=== PATIENT | female | born 1940 | race Hispanic/Latino ===

== ENCOUNTER 2020-08-18 02:02 | Emergency (ER) | payer OTHER ==
--- OUTSIDE RECORDS SUMMARY | 2020-08-18 02:06 | XMS REPORT | Continuity of Care Document ---
:1940 Author Organization [facility] t Address [address] [place] [address] Care Team Providers Name Role Phone ALLYSSA Attending Clinician Unavailable Estela Beasley Attending Clinician Marlena LUX T Attending Clinician ANTWAN Attending Clinician Unavailable Gabriel HERNANDEZ S Attending Clinician BOSSMAN Admitting Clinician Unavailable Problems This patient has no known problems. Allergies, Adverse Reactions, Alerts Allergy Allergy Status Severity Reaction(s) Onset Inactive Treating Comm ents Source Name Type Date Date Clinician codeine Adverse Active headaches [facility] ent Clinics Medications Ordered Filled Start Stop Current Ordering Indication Dosage Frequency Signature Comments Components Source Medication Medication Date Date Medication? Clinician (SIG) Name Name Losartan Losartan Yes Na Cordova [address] [facility] Potassium Potassium 9-14 at night [facility] Losartan Losartan 2019-0 Yes Na Cordova [address] [facility] Potassium Potassium 9-02 [facility] Metoprolol Metoprolol Yes Na Cordova [address] [facility] Succinate Succinate [facility]ics Metoprolol Metoprolol Yes Na Cordova take [address] [facility] Succinate Succinate tablet Lonnie es - ER ER once daily [facility] ent Clinics Immunizations Ordered Filled Immunization Date Status Comments Sour e Immunization Name Name Genevieve Vallejo 2019-05-[address] [facility] Procedures This patient has no known procedures. Encounters Start End Encounter Admission Attending Care Care Encounter Source Date/Time Date/Time Type Type Clinicians Facility Department ID 2020-07-14 2020-07-14 Out[facility] [id number] l [facility] ent Clinics 2020-06-30 2020-06-30 Outpatient [facility] [id number] [place] 00:00:00 00:00:[address] 2020-06-09 2020-06-09 Outpatient [facility] [id number] 00:00:00 00:00:[address] 2020-03-20 2020-03-20 Outpatient [facility] [id number] 00:00:00 00:00:[address] 2020-02-26 2020-02-26 Outpatient GADHIA, [facility] [id number] 00:00:00 00:00:00 DWIGHT [address] 2020-02-07 2020-02-07 Outpatient [facility] [id number] [place] 00:00:00 00:00:[address] 2020-02-04 2020-02-04 [facility] [id number] 09:18:00 09:18:[address] [facility] ent [facility] 2020-02-01 2020-02-01 Emergency Elizabeth, K [facility] [id number] 19:53:00 22:28:00 Estela Denney [id number] [place] [id number] [place] [id number] 2020-01-31 2020-01-31 [facility] [id number] 09:17:00 09:17:[address] [facility] ent [facility] 2020-01-30 2020-01-30 [facility] [id number] 09:30:00 09:30:00 t [facility] - agreement24 avtal24 [facility] Medicine Outpati ent Clinics 2020-01-25 2020-01-25 Emergency Sam Mendiola [facility] [id number] 11:03:00 13:39:00 James Denney [id number] [place] [id number] [place] [address] [id number] 2020-01-25 2020-01-25 [facility] [id number] [facility] 10:24:00 10:24:00 t [facility] Journal[employer] Online [facility] Medicine Outpati ent Clinics 2020-01-24 2020-01-24 [facility] [id number] [address] 15:31:00 15:31:00 t Istpika [facility] Medicine Outpati ent Clinics 2020-01-23 2020-01-24 [id number] [place] 00:00:00 00:00:00 TUYET [address] 2020-01-23 2020-01-23 [facility] [id number] [address] 10:40:00 10:40:00 t Istpika [facility] Medicine Outpati ent Clinics 2020-01-21 2020-01-21 [facility] [id number] 21:39:00 23:54:00 Toño Denney [id number] [place] [id number] [place] [id number] 2020-01-04 2020-01-04 [facility] [id number] 08:20:00 08:20:00 t [facility] [employer] Online [facility] Medicine Outpati ent Clinics 2019-12-04 2019-12-04 [facility] [id number] 13[facility]20:00 13:20:00 t [facility] [employer] Online [facility] Medicine Outpati ent Clinics 2019-11-02 2019-11-02 [facility] [id number] [facility] 16:00:00 16:00:[address] [facility] - Drive [facility] Medicine l Medicine Outpati ent Clinics 2019-11-02 2019-11-02 [facility] [id number] [facility] 15:30:00 15:30:[address] Luke s - Drive [facility] Medicine l Medicine Outpati ent Clinics 2019-10-02 2019-10-02 [facility] [id number] 10:40:00 10:40:[address] Luke s - Drive [facility] Medicine l Medicine Outpati ent Clinics 2019-06-15 2019-06-15 [facility] [id number] 12:48:00 12:48:00 [place] agreement24 avtal24 Luke s - Drive [facility] Medicine l Medicine Outpati ent Clinics 2019-05-11 2019-05-11 [facility] [id number] 08:40:00 08:40:00 [place] agreement24 avtal24 Luke s - Drive [facility] Medicine l Medicine Outpati ent Clinics 2019-04-27 2019-04-27 [facility] [id number] 16:00:00 16:00:00 [place] agreement24 avtal24 Luke s - Drive [facility] Medicine l Medicine Outpati ent Clinics 2019-03-16 2019-03-16 [facility] [id number] 08:20:00 08:20:00 [place] agreement24 avtal24 Luke s - Drive [facility] Medicine l Medicine Outpati ent Clinics 2019-01-26 2019-01-26 [facility] [id number] 09:40:00 09:40:00 [place] agreement24 avtal24 Luke s - Drive [facility] Medicine l Medicine Outpati ent Clinics 2019-01-17 2019-01-17 [facility] [id number] [facility] 09:26:00 09:26:[address] Luke s - Drive [facility] Medicine l Medicine Outpati ent Clinics 2018-12-08 2018-12-08 [facility] [id number] [facility] 08:30:00 08:30:[address] Luke s - Drive [facility] Medicine l Medicine Outpati ent Clinics 2018-07-26 2018-07-26 [facility] [id number] [facility] 09:00:00 09:00:[address] Luke s - Drive [facility] Medicine Outpati ent Clinics 2018-06-13 2018-06-13 [facility] [id number] 08:45:00 08:45:[address] Luke s - Drive [facility] Medicine Outpati ent Clinics 2018-01-26 2018-01-26 [facility] [id number] 09[facility]45:00 09:45:[address] Luke s - Drive [facility] Medicine Outpati ent Clinics 2018-01-08 2018-01-08 [facility] [id number] 03:47:00 03:47:[address] [employer] s - Drive [facility] Medicine Outpati ent Clinics 2017-12-29 2017-12-29 [facility] [id number] 13:45:00 13:45:00 [place] agreement24 avtal24 [employer] s - Drive [facility] Medicine Outpati ent Clinics 2017-12-28 2017-12-28 [facility] [id number] 08:47:00 08:47:[address] [employer] s - Drive [facility] Medicine Outpati ent Clinics 2017-10-26 2017-10-26 [facility] [id number] 09:45:00 09:45:00 [place] agreement24 [email or web address] [employer] s - Drive [facility] Medicine Outpati ent Clinics Results This patient has no known results.
[2020-08-18] MEDS ORDERED: ONDANSETRON 4 MG/2 ML VIAL ONE (03:19)
[2020-08-18] MEDS ORDERED: MORPHINE 2 MG/ML SYR ONE (03:19)
[2020-08-18 03:27] LABS: Protime INR 1.04
[2020-08-18 03:28] LABS: Absolute Lymphocytes (CBC) 1.7 K/uL (0.7-4.9); Basophils % 0.4 % (0-1.3); Hematocrit 37.9 % (36.0-45.0); Lymphocytes % 15.1 % (15.3-44.8); MPV 8.2 fL (7.6-11.3); RBC Red Blood Cell Count 4.28 M/uL (3.86-4.86)
[2020-08-18 03:49] LABS: ALT/SGPT 26 U/L (12-78); AST/SGOT 16 U/L (15-37); Albumin 3.7 g/dL (3.4-5.0); Alkaline Phosphatase 94 U/L (45-117); BUN Blood Urea Nitrogen 15 mg/dL (7-18); Bicarbonate 28 mmol/L (21-32); Bilirubin Direct 0.2 mg/dL (0-0.2); Bilirubin Total 0.8 mg/dL (0.2-1.0); Glucose Level 130 mg/dL (74-106); Magnesium 2.1 mg/dL (1.8-2.4); NT PRO-BNP 313 pg/mL (<450); Potassium 3.4 mmol/L (3.5-5.1); Protein, Total 7.5 g/dL (6.4-8.2); Sodium Level 140 mmol/L (136-145); Troponin (Emerg Dept Use Only) < 0.02 ng/mL (0.0-0.045)
[2020-08-18 04:27] LABS: Urine Blood 2+ (Negative); Urine Glucose NEGATIVE (Negative); Urine Protein NEGATIVE (NEG); Urine Specific Gravity 1.025 (1.005-1.030)
[2020-08-18] MEDS ORDERED: CEFTRIAXONE 1000 MG/VIAL ONE (06:18)
[2020-08-18] MEDS ORDERED: NA CHLORIDE 0.9% 250 ML ONE (06:19)
[2020-08-18] MEDS ORDERED: AZITHROMYCIN 500 MG INJ IVPB ONE (06:19)
[2020-08-18] MEDS ORDERED: NA CHLORIDE 0.9% 50 ML ONE (06:19)
--- NOTE | 2020-08-18 08:24 | RAD REPORT ---
EXAM DESCRIPTION: RAD - Chest Single View - 08/18/2020 3:19 am CLINICAL HISTORY: Chest pain;Rib Pain - Left COMPARISON: January 2014 TECHNIQUE: AP portable chest image was obtained 08/18/2020 3:19 am . FINDINGS: Lung volumes are low. Right lung field clear of mass or consolidation. Lateral left base p arenchymal opacification present with costophrenic angle blunting and partial obscuration of the left heart border. Heart size within normal limits. Pulmonary vasculature within normal limits. Trachea i s midline. No measurable pleural effusion and no pneumothorax. No acute bony abnormality seen. No acu te aortic findings suspected. IMPRESSION: Infiltrate and/or atelectasis left lung base. Minimal pleural effusion could be present as well.
--- NOTE | 2020-08-18 08:29 | EDPHYS ---
Physician Documentation [facility] Name: Deisy Yusuf Age: 79 yrs Sex: Female : 1940 Arrival Date: 08/18/2020 Time: 02:07 Bed 3 Private MD: Len Lopez E ED Physician Zeyad Booth HPI: 08/18 03:57 This 79 yrs old Female presents to ER via Wheelchair with complaints of Chest mh7 Pain, Breathing Difficulty, Back Pain. 03:57 The patient or guardian reports chest pain that is located primarily in the anterior mh7 chest wall, left. Onset: last night. The pain does not radiate. Associated signs and symptoms: Pertinent positives: shortness of breath, Pertinent negatives: abdominal pain, cough, diaphoresis, dizziness, headache, lower extremity pain, lower extremity swelling, lightheadedness, nausea, near syncope, palpitations, recent travel, syncope, vomiting. The chest pain is described as a pressure. Duration: The patient or guardian reports multiple episodes, that are intermittent, that wax and wane. Modifying factors: The symptoms are alleviated by nothing. the symptoms are aggravated by nothing. Severity of pain: At its worst the pain was moderate last night, in the emergency department the pain is unchanged. Historical: - Allergies: : Codeine; bb - Home Meds: : fluticasone nasal nasal [Active]; magnesium / calcium [Active]; D3 [Active]; losartan bb 100 mg oral tab 1 tab once daily [Active]; rosuvastatin 10 mg oral tab 1 tab once daily [Active]; gabapentin 300 mg oral cap 1 cap nightly [Active]; amlodipine 5 mg tab 1 tab once daily [Active]; clopidogrel 75 mg oral tab 1 tab once daily [Active]; aspirin 325 mg Oral tab 1 tab once daily [Active]; hydrochlorothiazide 25 mg Oral tab 1 tab once daily [Active]; metoprolol succinate ER 50 mg daily [Active]; - PMHx: 02: CVA; Hypertension; Hyperlipidemia; bb - PSHx: : ; Knee arthroscopy; hand surgery; bb - Immunization history:: Adult Immunizations up to date. - Social history:: Smoking status: Patient denies any tobacco usage or history of. Patient/guardian denies using alcohol, street drugs. ROS: 03:57 Constitutional: Negative for fever, chills, and weight loss, Eyes: Negative for injury, mh7 pain, redness, and discharge, ENT: Negative for injury, pain, and discharge, Neck: Negative for injury, pain, and swelling, Abdomen/GI: Negative for abdominal pain, nausea, vomiting, diarrhea, and constipation, : Negative for injury, bleeding, discharge, and swelling, MS/Extremity: Negative for injury and deformity, Skin: Negative for injury, rash, and discoloration, Neuro: Negative for headache, weakness, numbness, tingling, and seizure, Psych: Negative for depression, anxiety, suicide ideation, homicidal ideation, and hallucinations, Allergy/Immunology: Negative for hives, rash, and allergies, Endocrine: Negative for neck swelling, polydipsia, polyuria, polyphagia, and marked weight changes, Hematologic/Lymphatic: Negative for swollen nodes, abnormal bleeding, and unusual bruising. Exam: 03:57 Constitutional: This is a well developed, well nourished patient who is awake, alert, mh7 and in no acute distress. Head/Face: Normocephalic, atraumatic. Eyes: Pupils equal round and reactive to light, extra-ocular motions intact. Lids and lashes normal. Conjunctiva and sclera are non-icteric and not injected. Cornea within normal limits. Periorbital areas with no swelling, redness, or edema. Neck: Trachea midline, no thyromegaly or masses palpated, and no cervical lymphadenopathy. Supple, full range of motion without nuchal rigidity, or vertebral point tenderness. No Meningismus. Chest/axilla: Normal chest wall appearance and motion. Nontender with no deformity. No lesions are appreciated. Cardiovascular: Regular rate and rhythm with a normal S1 and S2. No gallops, murmurs, or rubs. Normal PMI, no JVD. No pulse deficits. Respiratory: Lungs have equal breath sounds bilaterally, clear to auscultation and percussion. No rales, rhonchi or wheezes noted. No increased work of breathing, no retractions or nasal flaring. Abdomen/GI: Soft, non-tender, with normal bowel sounds. No distension or tympany. No guarding or rebound. No evidence of tenderness throughout. Back: No spinal tenderness. No costovertebral tenderness. Full range of motion. Skin: Warm, dry with normal turgor. Normal color with no rashes, no lesions, and no evidence of cellulitis. MS/ Extremity: Pulses equal, no cyanosis. Neurovascular intact. Full, normal range of motion. Neuro: Awake and alert, GCS 15, oriented to person, place, time, and situation. Cranial nerves II-XII grossly intact. Motor strength 5/5 in all extremities. Sensory grossly intact. Cerebellar exam normal. Normal gait. Psych: Awake, alert, with orientation to person, place and time. Behavior, mood, and affect are within normal limits. Vital Signs: 02:19 BP 146 / 52; Pulse 103; Resp 20 S; Temp 98.6(O); Pulse Ox 97% on R/A; Weight 90.72 kg bb (R); Height 5 ft. 6 in. (167.64 cm) (R); Pain 10/10; 03:00 BP 139 / 47; Pulse 91; Resp 18; Pulse Ox 98% ; sf 04:04 BP 97 / 64; Pulse 79; Resp 16; Pulse Ox 98% ; sf 04:22 BP 117 / 42; Pulse 73; Resp 16; Pulse Ox 98% ; sf 04:30 BP 105 / 42; Pulse 70; Resp 16; Pulse Ox 97% ; sf 05:00 BP 94 / 41; Pulse 58; Resp 18; Pulse Ox 97% ; sf 07:30 BP 113 / 51; Pulse 62; Resp 14 S; Pulse Ox 97% on R/A; aa5 02:19 Body Mass Index 32.28 (90.72 kg, 167.64 cm) MDM: 07:04 Patient medically screened. ma2 08:28 Differential diagnosis: pericarditis, pleurisy, pneumonia. Data reviewed: vital signs, ma2 nurses notes. Counseling: I had a detailed discussion with the patient and/or guardian regarding: the historical points, exam findings, and any diagnostic results supporting the discharge/admit diagnosis, the presence of at least one elevated blood pressure reading (>120/80) during this emergency department visit, the need for outpatient follow up. ED course: patient has left lateral chest pain worse with breathing and pneumonia left lingual, vs wnl, all symptoms resolved. 08/18 02:29 Order name: Basic Metabolic Panel [facility] 08/18 02:29 Order name: CBC with Diff [facility] 08/18 02:29 Order name: LFT's; Complete Time: 03:52 [facility] 08/18 02:29 Order name: Magnesium; Complete Time: 03:52 [facility] 08/18 02:29 Order name: NT PRO-BNP; Complete Time: 03:52 [facility] 08/18 02:29 Order name: PT-INR; Complete Time: 05:12 7 08/18 02:29 Order name: Troponin (emerg Dept Use Only); Complete Time: 03:52 [facility] 08/18 02:30 Order name: Basic Metabolic Panel; Complete Time: 03:52 EDMS 08/18 02:30 Order name: CBC with Automated Diff; Complete Time: 03:53 EDMS 08/18 04:14 Order name: Urine Dipstick--Ancillary (enter results); Complete Time: 05:12 [facility] 08/18 05:18 Order name: Blood Culture Adult (2) [facility] 08/18 05:22 Order name: COVID-19 : Document "Date of Symptom Onset" if Symptomatic. lp1 08/18 07:13 Order name: SARS-COV-2 RT PCR; Complete Time: 07:35 EDMS 08/18 02:29 Order name: XRAY Chest (1 view) [facility] 08/18 02:29 Order name: EKG; Complete Time: 02:30 [facility] 08/18 02:29 Order name: Cardiac monitoring; Complete Time: 03:04 [facility] 08/18 02:29 Order name: EKG - Nurse/Tech; Complete Time: 05:17 [facility] 08/18 02:29 Order name: IV Saline Lock; Complete Time: 03:04 [facility] 08/18 02:29 Order name: Labs collected and sent; Complete Time: 03:04 [facility] 08/18 02:29 Order name: O2 Per Protocol; Complete Time: 03:04 [facility] 08/18 02:29 Order name: O2 Sat Monitoring; Complete Time: 03:04 [facility] 08/18 02:30 Order name: Urine Dipstick-Ancillary (obtain specimen); Complete Time: 04:26 [facility] 08/18 03:53 Order name: CT Chest For PE Angio [facility] Administered Medications: 03:08 Drug: morphine 2 mg Route: IVP; Site: right antecubital; sf 04:27 Follow up: Response: No adverse reaction; Pain is decreased sf 03:08 Drug: Zofran (Ondansetron) 4 mg Route: IVP; Site: right antecubital; sf 04:27 Follow up: Response: No adverse reaction sf 06:09 Drug: Rocephin - (cefTRIAXone) 1 grams Route: IVPB; Infused Over: 30 mins; Site: left sf antecubital; 06:36 Follow up: Response: No adverse reaction; IV Status: Completed infusion; IV Intake: 50mlsf 06:37 Drug: Zithromax (azithromycin) 500 mg Route: IVPB; Infused Over: 1 hrs; Site: left sf antecubital; Disposition: 08/18/20 08:29 Discharged to Home. Impression: Pneumonia due to other specified infectious organisms. - Condition is Stable. - Discharge Instructions: Community-Acquired Pneumonia, Adult. - Prescriptions for Diclofenac Sodium 75 mg Oral Tablet Sustained Release - take 1 tablet by ORAL route 2 times per day; 30 tablet. Zithromax Z- Javi 250 mg Oral Tablet - take 1 tablet by ORAL route as directed for 5 days Day 1 - take two (2) tablets one time. Day 2, 3, 4 , 5 take one (1) tablet once daily.; 6 tablet. - Medication Reconciliation Form, Thank You Letter, Antibiotic Education, Prescription Opioid Use form. - Follow up: Private Physician; When: Tomorrow; Reason: Continuance of care. Signatures: Dispatcher [employer] [facility] Radha Jung RN RN Jesse Boucher RN RN [id number] Zeyad Booth MD MD ma2 Booker Dai MD MD 7 Andreas Vera RN RN sf Corrections: (The following items were deleted from the chart) 06:34 05:23 CORONAVIRUS ordered. [facility] EDOR 09:22 08:29 08/18/2020 08:29 Discharged to Home. Impression: Pneumonia due to other specified jl7 infectious organisms. Condition is Stable. Forms are Medication Reconciliation Form, Thank You Letter, Antibiotic Education, Prescription Opioid Use. Follow up: Private Physician; When: Tomorrow; Reason: Continuance of care. dalila
--- NOTE | 2020-08-18 08:29 | ER ---
Nurse's Notes [facility] [place] Name: Deisy Yusuf Age: 79 yrs Sex: Female : 1940 Arrival Date: 08/18/2020 Time: 02:07 Bed 3 Private MD: Len Lopez E Diagnosis: Pneumonia due to other specified infectious organisms Presentation: 08/18 02:19 Chief complaint: Patient states: she started having left flank pain at approx 1800 last bb night denies nausea, vomiting, diarrhea, or dysuria but is having difficulty breathing from the pain. Coronavirus screen: At this time, the client does not indicate any symptoms associated with coronavirus-19. Ebola Screen: No symptoms or risks identified at this time. Initial Sepsis Screen: Does the patient meet any 2 criteria? No. Patient's initial sepsis screen is negative. Does the patient have a suspected source of infection? No. Patient's initial sepsis screen is negative. Risk Assessment: Do you want to hurt yourself or someone else? Patient reports no desire to harm self or others. Onset of symptoms was August 17, 2020. 02:19 Method Of Arrival: Wheelchair bb 02:19 Acuity: KIRSTIN 3 bb Historical: - Allergies: 02: Codeine; bb - Home Meds: 02: fluticasone nasal nasal [Active]; magnesium / calcium [Active]; D3 [Active]; losartan bb 100 mg oral tab 1 tab once daily [Active]; rosuvastatin 10 mg oral tab 1 tab once daily [Active]; gabapentin 300 mg oral cap 1 cap nightly [Active]; amlodipine 5 mg tab 1 tab once daily [Active]; clopidogrel 75 mg oral tab 1 tab once daily [Active]; aspirin 325 mg Oral tab 1 tab once daily [Active]; hydrochlorothiazide 25 mg Oral tab 1 tab once daily [Active]; metoprolol succinate ER 50 mg daily [Active]; - PMHx: 02: CVA; Hypertension; Hyperlipidemia; bb - PSHx: 02: ; Knee arthroscopy; hand surgery; bb - Immunization history:: Adult Immunizations up to date. - Social history:: Smoking status: Patient denies any tobacco usage or history of. Patient/guardian denies using alcohol, street drugs. Screenin: Abuse screen: Denies threats or abuse. Denies injuries from another. Nutritional sf screening: No deficits noted. Tuberculosis screening: No symptoms or risk factors identified. Never had TB. Possible symptoms: None Risk factors: None. Fall Risk None identified. No fall in past 12 months (0 pts). Secondary diagnosis (15 points) CVA, IV access (20 points). Ambulatory Aid- Crutches/Cane/Walker (15 pts). Gait- Normal/Bed Rest/Wheelchair (0 pts) Mental Status- Oriented to own ability (0 pts). Total Rodarte Fall Scale indicates Low Risk Score (25-44 pts). Fall prevention measures have been instituted. Side Rails Up X 2 Placed close to Nursing Station. Assessment: 02:22 General: Appears uncomfortable, obese, well groomed, well developed, Behavior is calm, sf cooperative. Pain: Complains of pain in anterior aspect of left lateral abdomen Pain does not radiate. Pain currently is 8 out of 10 on a pain scale. Quality of pain is described as sharp, Pain began gradually, 1 day ago. Neuro: No deficits noted. Level of Consciousness is awake, alert, Oriented to person, place, time, situation. Cardiovascular: Denies chest pain, lightheadedness, shortness of breath, Patient's skin is warm and dry. Respiratory: Reports pain with cough pain with respiration Airway is patent Respiratory effort is even, unlabored, Respiratory pattern is regular, symmetrical, Denies shortness of breath at rest, on exertion. GI: Abdomen is non-distended, Abd is soft and non tender X 4 quads. Patient currently denies abdominal pain, nausea, vomiting. : No signs and/or symptoms were reported regarding the genitourinary system. Denies burning with urination, pain in lower back with urination flank(s). 04:00 Reassessment: Patient appears in no apparent distress at this time. Patient and/or sf family updated on plan of care and expected duration. Pain level reassessed. Patient is alert, oriented x 3, equal unlabored respirations, skin warm/dry/pink. Taken to restroom via w/c for urine sample Patient states feeling better. Patient states symptoms have improved. 06:09 Reassessment: Patient appears in no apparent distress at this time. No changes from sf previously documented assessment. Patient and/or family updated on plan of care and expected duration. Pain level reassessed. Patient is alert, oriented x 3, equal unlabored respirations, skin warm/dry/pink. 07:45 Reassessment: Patient is alert, oriented x 3, equal unlabored respirations, skin aa5 warm/dry/pink. Awaiting disposition. Pt c/o pain to lateral aspect of left lower rib cage.. Vital Signs: 02:19 BP 146 / 52; Pulse 103; Resp 20 S; Temp 98.6(O); Pulse Ox 97% on R/A; Weight 90.72 kg bb (R); Height 5 ft. 6 in. (167.64 cm) (R); Pain 10/10; 03:00 BP 139 / 47; Pulse 91; Resp 18; Pulse Ox 98% ; sf 04:04 BP 97 / 64; Pulse 79; Resp 16; Pulse Ox 98% ; sf 04:22 BP 117 / 42; Pulse 73; Resp 16; Pulse Ox 98% ; sf 04:30 BP 105 / 42; Pulse 70; Resp 16; Pulse Ox 97% ; sf 05:00 BP 94 / 41; Pulse 58; Resp 18; Pulse Ox 97% ; sf 07:30 BP 113 / 51; Pulse 62; Resp 14 S; Pulse Ox 97% on R/A; aa5 02:19 Body Mass Index 32.28 (90.72 kg, 167.64 cm) ED Course: 02:07 Patient arrived in ED. es 02:07 Len Lopez MD is Private Physician. es 02:14 Booker Dai MD is Attending Physician. [facility] 02:21 Andreas Vera, ANTOINE is Primary Nurse. sf 02:21 Triage completed. bb 02:22 Patient has correct armband on for positive identification. Bed in low position. Call light in reach. Side rails up X2. Pulse ox on. NIBP on. Door closed. Noise minimized. Visitors limited. Lights dimmed. Warm blanket given. Verbal reassurance given. 02:22 Patient maintains SpO2 saturation greater than 95% on room air. sf 02:26 Arm band placed on Patient placed in an exam room, on a stretcher, on pulse oximetry. bb 02:50 Initial lab(s) drawn, by me, sent to lab. Inserted saline lock: 20 gauge in right sf antecubital area, using aseptic technique. Blood collected. 03:04 XRAY Chest (1 view) Sent. sf 03:09 CBC with Diff Sent. sf 03:09 Basic Metabolic Panel Sent. sf 03:18 XRAY Chest (1 view) In Process Unspecified. EDMS 03:53 EKG done, by ED staff, reviewed by Booker Dai MD. sf 04:00 Urine collected: clean catch specimen, clear. sf 04:26 CT Chest For PE Angio Sent. sf 04:49 CT Chest For PE Angio In Process Unspecified. EDMS 05:35 First set of blood cultures drawn by me. sf 05:35 Inserted saline lock: 20 gauge in left antecubital area, using aseptic technique. Blood sf collected. 05:40 Second set of blood cultures drawn by me. sf 05:54 Blood Culture Adult (2) Sent. sf 05:55 COVID-19 : Document "Date of Symptom Onset" if Symptomatic. Sent. sf 07:04 Attending Physician role handed off by Booker Dai MD ma2 07:04 Zeyad Booth MD is Attending Physician. ma2 08:08 Primary Nurse role handed off by Andreas Vera, ANTOINE 09:21 Jesse Carlson, ANTOINE is Primary Nurse. jl7 09:21 No provider procedures requiring assistance completed. IV discontinued, intact, jl7 bleeding controlled, No redness/swelling at site. Pressure dressing applied. Administered Medications: 03:08 Drug: morphine 2 mg Route: IVP; Site: right antecubital; sf 04:27 Follow up: Response: No adverse reaction; Pain is decreased sf 03:08 Drug: Zofran (Ondansetron) 4 mg Route: IVP; Site: right antecubital; sf 04:27 Follow up: Response: No adverse reaction sf 06:09 Drug: Rocephin - (cefTRIAXone) 1 grams Route: IVPB; Infused Over: 30 mins; Site: left sf antecubital; 06:36 Follow up: Response: No adverse reaction; IV Status: Completed infusion; IV Intake: 50mlsf 06:37 Drug: Zithromax (azithromycin) 500 mg Route: IVPB; Infused Over: 1 hrs; Site: left sf antecubital; Intake: 06:36 IV: 50ml; Total: 50ml. sf Outcome: 08:29 Discharge ordered by . ma2 09:21 Discharged to home ambulatory. jl7 09:21 Condition: stable 09:21 Discharge instructions given to patient, Instructed on discharge instructions, follow up and referral plans. medication usage, Demonstrated understanding of instructions, follow-up care, medications, Prescriptions given X 2. 09:22 Patient left the ED. jl7 Signatures: Dispatcher [employer] EDMS Hannah Wahl Edna es Ballard, Brenda RN RN bb Smitha Garvey RN RN aa5 Jesse Carlson RN RN jl7 Zeyad Booth MD MD ma2 Booker Dai MD MD 7 Andreas eVra RN RN sf Corrections: (The following items were deleted from the chart) 06:34 05:54 CORONAVIRUS drawn and sent. EDMS
[2020-08-18 09:27] VITALS: TEMP 98.6
[2020-08-18 09:35] VITALS: O2SAT 97
[2020-08-18 09:38] VITALS: BP 113/51
--- NOTE | 2020-08-18 11:19 | RAD REPORT ---
EXAM DESCRIPTION: CT - Chest For Pe Angio - 08/18/2020 7:11 am CLINICAL HISTORY: The patient is 79 years old and is Female; Chest pain;SOB TECHNIQUE: Axial computed tomographic angiography images of the chest with intravenous contrast. S agittal and coronal reformatted images were created and reviewed. This CT exam was performed using one or more of the following dose reduction techniques: automated exposure control, adjustment of t he mA and/or kV according to patient size, and/or use of iterative reconstruction technique. MIP re constructed images were created and reviewed. COMPARISON: No relevant prior studies available. FINDINGS: Pulmonary arteries: Unremarkable. No pulmonary embolism. Aorta: No acute findings. No thoracic aortic aneurysm. Lungs: Left basilar atelectasis or consolidation. Pleural space: Unremarkable. No significant effusion. No pneumothorax. Heart: Heart appears enlarged. No significant pericardial effusion. No evidence of RV dysfunct ion. Mediastinum: Small hiatal hernia. Bones/joints: No acute fracture. No dislocation. Soft tissues: Unremarkable. Lymph nodes: Unremarkable. No enlarged lymph nodes. IMPRESSION: 1. No evidence of pulmonary embolism. 2. Left basilar atelectasis or consolidation. 3. Small hiatal hernia. 4. Heart appears enlarged. Electronically signed by: Umer Trujillo MD 08/18/2020 5:06 AM CDT Due to temporary technical issues with the PACS/Fluency reporting system, reports are being signed by the in house radiologist without review as a courtesy to ensure prompt reporting. The interpreting r adiologist is fully responsible for the content of the report.
== END 2020-08-18 09:22 | disposition home or self-care (01) ==
LOC: ER 02:02
DX: J16.8 Pneumonia due to other specified infectious organisms (principal); Z20.822 Contact with and (suspected) exposure to COVID-19; I10 Essential (primary) hypertension; E78.5 Hyperlipidemia, unspecified; Z88.5 Allergy status to narcotic agent
CPT/HCPCS: 93005; 87040 ×2; 85025; 80048; 36415; 83735; 85610; 80076; 81003; 84484; 83880; 71275; 71045; U0003; Q9967; J0456; J2270; J7050; J2405; 99285

== ENCOUNTER 2021-04-19 14:29 | Emergency (ER) | payer OTHER ==
--- OUTSIDE RECORDS SUMMARY | 2021-04-19 14:36 | XMS REPORT | Continuity of Care Document ---
:1940 Author Organization [facility] t Address [address] [place] [address] Care Team Providers Name Role Phone Miguelina Cordova Primary Care Physician Janusz VILLELA Attending Clinician Unavailable Manohar HERNANDEZ, A Attending Clinician Only, Test Attending Clinician Unavailable Pob, Lab Main Attending Clinician Unavailable Doctor Unassigned, Name Attending Clinician Unavailable ALLYSSA Attending Clinician Unavailable Lilia Beasley Attending Clinician LILIA LEE Attending Clinician Unavailable aJmes Knox Attending Clinician ANTWAN Attending Clinician Unavailable MD Lina MONCADA Attending Clinician Unavailable Gabriel HERNANDEZ S Attending Clinician Rox SALDIVAR Attending Clinician Unavailable Janusz VILLELA Admitting Clinician Unavailable Manohar HERNANDEZ, A Admitting Clinician BOSSMAN Admitting Clinician Unavailable MD BOSSMAN Admitting Clinician Unavailable Payers Payer Name Policy Type Policy Number Effective Date Expiration Date S tracy [employer] MEDICARE [id number] 2019 00:00:00 Problems Condition Condition Condition Status Onset Resolution Last Treating Co mments Source Name Details Category Date Date Treatment Clinician Date No known No known Disease Unive rs active active ity of problems problems [facility] Allergies, Adverse Reactions, Alerts Allergy Allergy Status Severity Reaction(s) Onset Inactive Treating Comm ents Source Name Type Date Date Clinician ALYSSA DRUG Active Other-Cmnt Unive rs INGREDI 01-20 ity of 00:00: [place] 00 Medical Branch Codeine Propensi Active Other - See headache Univers ty to comments 01-20 ity of adverse 00:00: [place] reaction 00 Medical s Branch codeine Adverse Active headaches [facility] Social History Social Habit Start Date Stop Date Quantity Comments Source Exposure to Not sure [facility] SARS-CoV-2 (event) Medica l Branch Tobacco use and 2020-10-07 2020-10-07 Never used [facility] exposure 00:00:00 00:00:00 Medical Branch Sex Ass[birth year] [facility] 00:00:00 00:00:00 Medical Branch Smoking Status Start Date Stop Date Source Never smoker [facility] Unknown if ever smoked [facility] Medications Ordered Filled Start Stop Current Ordering Indication Dosage Frequency Signature Comments Components Source Medication Medication Date Date Medication? Clinician (SIG) Name Name atorvastati Yes 80mg Take 80 mg Univers n 80 mg 5-19 by mouth ity of tablet 17:45: at [place] 47 bedtime. Medical Branch losartan Yes 100mg Take 100 Univ ers 100 mg 5-19 mg by ity of tablet 17:45: mouth [place] 47 daily. Medical Branch clopidogreL Yes 75mg Take 75 mg Univers 75 mg 5-19 by mouth ity of tablet 17:45: daily. [place] 47 Medical Branch metoprolol Yes 50mg Take 50 mg U nivers succinate 5-19 by mouth ity of XL 50 mg 24 17:45: [place]. [place] 47 [facility] aspirin 325 Yes 325mg Take 325 U nivers mg tablet 5-19 mg by ity of 17:45: mouth [place] 47 daily. Medical Branch mv-mn/iron/ Yes 1{capsu Take 1 U nivers folic 5-19 le} capsule by ity of acid/herb 17:45: mouth [place] 190 47 daily. Medical (VITAMIN D3 Branch COMPLETE ORAL) multivit-mi Yes 1{tbl} Take 1 Un jana n/ferrous 5-19 tablet by ity o f fumarate 17:45: mouth [place] (MULTI 47 daily. Medical VITAMIN Branch ORAL) sennosides Yes 1{tbl} Take 1 Uni vers (SENNA LAX 5-19 tablet by ity of ORAL) 17:45: mouth [place] 47 daily. Medical Branch gabapentin Yes 300mg Take 300 Un jana ER 300 mg 5-19 mg by ity of tablet, 17:45: mouth [place] extended 47 daily. Medical release 24 Branch hr rosuvastati Yes 10mg Take 10 mg Univers n 10 mg 5-19 by mouth ity of tablet 17:45: at [place] [address] bedtime. Medical Branch amLODIPine Yes 5mg Take 5 mg Un jana 5 mg tablet 5-19 by mouth ity of 17:45: daily. [place] [address] Medical Branch hydroCHLORO Yes 25mg Take 25 mg Univers thiazide 25 5-19 by mouth ity of mg tablet 17:45: daily. [place] [address] Medical Branch [address] in U nivers OPHTHALMIC 5-19 both eyes ity of 17:45: at [place] [address] bedtime. Medical Branch carboxymeth [address] U nivers ylcellulose 5-19 both eyes ity of sodium 17:45: at bedtime [place] (REFRESH 47 as needed Medica l OPHTHALMIC) for Other. Br anch atorvastati Yes 80mg Take 80 mg Univers n 80 mg 5-19 by mouth ity of tablet 17:45: at [place] [address] bedtime. Medical Branch losartan Yes 100mg Take 100 Univ ers 100 mg 5-19 mg by ity of tablet 17:45: mouth [place] 47 daily. Medical Branch clopidogreL 0 Yes 75mg Take 75 mg Univers 75 mg 5-19 by mouth ity of tablet 17:45: daily. [place] [address] Medical Branch metoprolol 0 Yes 50mg Take 50 mg U nivers succinate 5-19 by mouth ity of XL 50 mg 24 17:45: [place]. [place] [address] Medical Branch aspirin 325 0 Yes 325mg Take 325 U nivers mg tablet 5-19 mg by ity of 17:45: mouth [place] 47 daily. Medical Branch mv-mn/iron/ Yes 1{capsu Take 1 U nivers folic 5-19 le} capsule by ity of acid/herb 17:45: mouth [place] 190 47 daily. Medical (VITAMIN D3 Branch COMPLETE ORAL) multivit-mi Yes 1{tbl} Take 1 Un jana n/ferrous 5-19 tablet by ity o f fumarate 17:45: mouth [place] (MULTI 47 daily. Medical VITAMIN Branch ORAL) sennosides Yes 1{tbl} Take 1 Uni vers (SENNA LAX 5-19 tablet by ity of ORAL) 17:45: mouth [place] 47 daily. Medical Branch gabapentin Yes 300mg Take 300 Un jana ER 300 mg 5-19 mg by ity of tablet, 17:45: mouth [place] extended 47 daily. Medical release 24 Branch hr rosuvastati Yes 10mg Take 10 mg Univers n 10 mg 5-19 by mouth ity of tablet 17:45: at [place] bedtime. Medical Branch amLODIPine Yes 5mg Take 5 mg Un jaan 5 mg tablet 5-19 by mouth ity of 17:45: daily. [place] [address] Medical Branch hydroCHLORO Yes 25mg Take 25 mg Univers thiazide 25 5-19 by mouth ity of mg tablet 17:45: daily. [place] [address] Medical Branch [address] Yes Place in U nivers OPHTHALMIC 5-19 both eyes ity of 17:45: at [place] [address] bedtime. Medical Branch carboxymeth Yes Place in U nivers ylcellulose 5-19 both eyes ity of sodium 17:45: at bedtime [place] (REFRESH 47 as needed Medica l OPHTHALMIC) for Other. Br anch water for Yes PRN, Univers irrigation 5-19 Starting ity o f irrigation 16:17: Wed [place] solution 00 10/08/20 at Medic al 1117, Branch Until Discontinu ed, Routine, Intra-op water for 2020- No PRN, Univers irrigation 5-19 05-19 Starting ity of irrigation 16:17: 19:45 Wed [place] solution 00 :47 10/08/20 at Medic al 1117, Branch Until 10/08/20 at 1445, Routine, Intra-op sodium 2020-0 Yes PRN, Univers chloride -19 Starting ity of (NS) 16:16: Tue [place] injection 00 10/08/20 at [place] [id number], Branch Until Discontinu ed, Routine, Intra-op neomycin-po 2020-0 Yes PRN, Univer s lymyxin-dex - Starting ity of amethasone 16:16: Tue [place] (MAXITROL) 00 10/08/20 at [facility] ical 3.5 1116, Branch mg/g-10,000 Until unit/g-0.1 Discontinu % ed, ophthalmic Routine, ointment Intra-op Hyaluronida Yes PRN, Univer s se, Human 10-08 Starting ity of Recomb. 16:16: Tue [place] (HYLENEX) 00 10/08/20 at [place] [id number], Branch Until Discontinu ed, Routine, Intra-op sodium 2020-2020- No PRN, Univers chloride 10-08 Starting ity of (NS) 16:16: 19:45 Wed [place] injection 00 :47 10/08/20 at [facility] 1116, Branch Until Tue10/08/20 at 1445, Routine, Intra-op neomycin-po 2020-0 2020- No PRN, Unive rs lymyxin-dex 10-08 Starting ity of amethasone 16:16: 19:45 Tue [place] (MAXITROL) 00 :47 10/08/20 at [facility] ical 3.5 1116, Branch mg/g-10,000 Until Tue unit/g-0.1 10/08/20 at % 1445, ophthalmic Routine, ointment Intra-op Hyaluronida 2020-0 202- No PRN, Unive rs se, Human 10-08 Starting ity o f Recomb. 16:16: 19:45 Tue [place] (HYLENEX) 00 :47 10/08/20 at [facility] injection 1116, Branch Until Tue10/08/20 at 1445, Routine, Intra-op eye block 2020-0 Yes PRN, Univers syringe 11 - Starting ity o f mL 16:01: Tue [place] 00 10/08/20 at [facility] 1101, Branch Until Discontinu ed, Intra-op EPINEPHrine Yes PRN, Univer s 1:1,000 (1 10-08 Starting ity o f mg/mL) 16:01: Tue (ADRENALIN) 00 10/08/20 at [place] 1101, Branch Until Discontinu ed, Routine, Intra-op eye block 2020- No PRN, Univers syringe 11 10-08 Starting ity of mL 16:01: 19:45 Tue 00 :47 10/08/20 at Medical 1101, Branch Until Tue10/08/20 at 1445, Intra-op EPINEPHrine 2020- No PRN, Unive rs 1:1,000 (1 10-08 Starting ity of mg/mL) 16:01: 19:45 Tue (ADRENALIN) 00 :47 10/08/20 at [place] injection 1101, Branch Until Tue10/08/20 at 1445, Routine, Intra-op DUOVISC Yes PRN, Univers (DUOVISC 10-08 Starting ity of VISCO 16:00: Tue ELASTIC) 3 00 10/08/20 at Med ical %-4 %(0.5 1100, Branch mL) 1 % Until (0.55 mL) Discontinu intraocular ed, injection Routine, Intra-op dexamethaso Yes PRN, Univer s ne 10-08 Starting ity of (DECADRON 16:00: Tue PHOSPHATE) 00 10/08/20 at Med ical injection 1100, Branch Until Discontinu ed, Routine, Intra-op ceFAZolin Yes PRN, Univers (ANCEF) 10-08 Starting ity of injection 16:00: Tue 00 10/08/20 at Medical 1100, Branch Until Discontinu ed, KELECHI, Intra-op DUOVISC 2020- No PRN, Univers (DUOVISC 10-08 Starting ity of VISCO 16:00: 19:45 [facility] ELASTIC) 3 00 :47 10/08/20 at Med ical %-4 %(0.5 1100, Branch mL) 1 % Until Wed (0.55 mL) 10/08/20 at intraocular 1445, injection Routine, Intra-op dexamethaso 2020- No PRN, Unive rs ne 10-08 Starting ity of (DECADRON 16:00: 19:45 Wed [place] PHOSPHATE) 00 :47 10/08/20 at [facility] ical injection 1100, Branch Until Tue10/08/20 at 1445, Routine, Intra-op ceFAZolin 2020- No PRN, Univers (ANCEF) 10-08 Starting ity of injection 16:00: 19:45 Wed [place] 00 :47 10/08/20 at [facility] 1100, Branch Until Tue10/08/20 at 1445, KELECHI, Intra-op carbachoL Yes PRN, Univers (MIOSTAT) 10-08 Starting ity of 0.01 % 15:57: Wed [place] intraocular 00 10/08/20 at [place] injection 1057, Branch Until Discontinu ed, Routine, Intra-op balanced Yes PRN, Univers salt irrig 10-08 Starting ity o f soln comb1 15:57: Wed [place] (BSS PLUS) 00 10/08/20 at [facility] ica ophthalmic 1057, Branch solution Until 500 mL bag Discontinu ed, Routine, Intra-op carbachoL 2020- No PRN, Univers (MIOSTAT) 10-08 Starting ity o f 0.01 % 15:57: 19:45 Wed [place] intraocular 00 :47 10/08/20 at [place] d[place] injection 1057, Branch Until Tue10/08/20 at 1445, Routine, Intra-op balanced 2020- No PRN, Univers salt irrig 10-08 Starting ity of soln comb1 15:57: 19:45 [facility] (BSS PLUS) 00 :47 10/08/20 at [facility] ica ophthalmic 1057, Branch solution Until Wed 500 mL bag 10/08/20 at 1445, Routine, Intra-op mydriatic 2020- No .5mL 0.5 mL, Univ ers #5 10-08 Right Eye, ity of ophthalmic 13:45: 13:44 ONCE, 1 [place] solution 00 :00 dose, Wed Medica l 0.5 mL 10/08/20 at [place] syringe 0845, Routine, DSU Pre-op lactated 2020- No 1000mL at 42 Unive rs ringers IV 10-08 05-19 mL/hr, ity of infusion 13:45: 13:42 1,000 mL, [place] 1,000 mL 00 :00 IV Medical Infusion, Branch ONCE, 1 dose, 10/08/20 at 0845, Routine, DSU Pre-op mydriatic 2020- No .5mL 0.5 mL, Univ ers #5 10-08 Right Eye, ity of ophthalmic 13:45: 13:44 ONCE, 1 [place] solution 00 :00 dose, Wed Medica l 0.5 mL 10/08/20 at Branch syringe 0845, Routine, DSU Pre-op lactated 2020- No [facility]08- mL/hr, ity of infusion 13:45: 13:42 1,000 mL, [place] 1,000 mL 00 :00 IV Medical Infusion, Branch ONCE, 1 dose, 10/08/20 at 0845, Routine, DSU Pre-op atorvastati Yes 80mg Take 80 mg Univers n 80 mg 5-05 by mouth ity of tablet 17:12: at [place] [address] bedtime. Medical Branch atorvastati Yes 80mg Take 80 mg Univers n 80 mg 5-05 by mouth ity of tablet 17:12: at [place] [address] bedtime. Medical Branch losartan 25 Yes 25mg Take 25 mg Univers mg tablet 5-05 by mouth ity of 17:12: every [place] [address] evening. Medical Branch clopidogreL Yes 75mg Take 75 mg Univers 75 mg 5-05 by mouth ity of tablet 17:12: daily. [place] [address] Medical Branch metoprolol Yes 50mg Take 50 mg U nivers succinate 5-05 by mouth ity of XL 50 mg 24 17:12: daily. [place] tablet 49 Medical Branch aspirin 81 Yes 325mg Take 325 Un jana mg chewable 5-05 mg by ity of tablet 17:12: mouth [place] [address] daily. Medical Branch atorvastati Yes 80mg Take 80 mg Univers n 80 mg 5-05 by mouth ity of tablet 17:12: at [place] [address] bedtime. Medical Branch losartan 25 Yes 25mg Take 25 mg Univers mg tablet 5-05 by mouth ity of 17:12: every [place] [address] evening. Medical Branch clopidogreL 0 Yes 75mg Take 75 mg Univers 75 mg 5-05 by mouth ity of tablet 17:12: daily. [place] [address] Medical Branch metoprolol 0 Yes 50mg Take 50 mg U nivers succinate 5-05 by mouth ity of XL 50 mg 24 17:12: daily. [place] tablet 49 Medical Branch aspirin 81 0 Yes 325mg Take 325 Un jana mg chewable 5-05 mg by ity of tablet 17:12: mouth [place] [address] daily. Medical Branch atorvastati Yes 80mg Take 80 mg Univers n 80 mg 5-05 by mouth ity of tablet 17:12: at [place] [address] bedtime. Medical Branch losartan 25 Yes 25mg Take 25 mg Univers mg tablet 5-05 by mouth ity of 17:12: every [place] [address] evening. Medical Branch clopidogreL Yes 75mg Take 75 mg Univers 75 mg 5-05 by mouth ity of tablet 17:12: daily. [place] [address] Medical Branch metoprolol Yes 50mg Take 50 mg U nivers succinate 5-05 by mouth ity of XL 50 mg 24 17:12: daily. [place] tablet 49 Medical Branch aspirin 81 Yes 325mg Take 325 Un jana mg chewable 5-05 mg by ity of tablet 17:12: mouth [place] [address] daily. Medical Branch atorvastati Yes 80mg Take 80 mg Univers n 80 mg 5-05 by mouth ity of tablet 17:12: at [place] [address] bedtime. Medical Branch losartan 25 Yes 25mg Take 25 mg Univers mg tablet 5-05 by mouth ity of 17:12: every [place] [address] evening. Medical Branch clopidogreL 0 Yes 75mg Take 75 mg Univers 75 mg 5-05 by mouth ity of tablet 17:12: daily. [place] [address] Medical Branch metoprolol 0 Yes 50mg Take 50 mg U nivers succinate 5-05 by mouth ity of XL 50 mg 24 17:12: daily. [place] tablet 49 Medical Branch aspirin 81 0 Yes 325mg Take 325 Un jana mg chewable 5-05 mg by ity of tablet 17:12: mouth [place] 49 daily. Medical Branch losartan 25 Yes 25mg Take 25 mg Univers mg tablet 5-05 by mouth ity of 17:12: every [place] 49 evening. Medical Branch clopidogreL Yes 75mg Take 75 mg Univers 75 mg 5-05 by mouth ity of tablet 17:12: daily. [place] 49 Medical Branch metoprolol Yes 50mg Take 50 mg U nivers succinate 5-05 by mouth ity of XL 50 mg 24 17:12: daily. [place] tablet 49 Medical Branch aspirin 81 Yes 325mg Take 325 Un jana mg chewable 5-05 mg by ity of tablet 17:12: mouth [place] 49 daily. [facility] Branch water for Yes PRN, Univers irrigation 5-05 Starting ity o f irrigation 15:50: Tue09/24/20 [place] solution 00 at 1050, Medical Until [place] Discontinu ed, Routine, Intra-op water for 2020- No PRN, Univers irrigation 5-05 05-05 Starting ity of irrigation 15:50: 19:12 [facility] 09/24/20 [place] solution 00 :50 at 1050, Medical Until Tue [place] 09/24/20 at 1412, Routine, Intra-op water for 2020- No PRN, Univers irrigation 5-05 05-05 Starting ity of irrigation 15:50: 19:12 [facility] 09/24/20 [place] solution 00 :50 at 1050, Medical Until Tue [place] 09/24/20 at 1412, Routine, Intra-op sodium Yes PRN, Univers chloride 5-05 Starting ity of (NS) 15:49: Tue09/24/20 [place] injection 00 at 1049, Medica l Until Novel[place] Discontinu ed, Routine, Intra-op neomycin-po Yes PRN, Univer s lymyxin-dex 5-05 Starting ity of amethasone 15:49: Tue09/24/20 [place] (MAXITROL) 00 at 1049, Medic al 3.5 Until [place] mg/g-10,000 Discontinu unit/g-0.1 ed, % Routine, ophthalmic Intra-op ointment Hyaluronida Yes PRN, Univer s se, Human 5-05 Starting ity of Recomb. 15:49: 09/24/20 [place] (HYLENEX) 00 at 1049, Medica l injection Until Branch Discontinu ed, Routine, Intra-op sodium 2020- No PRN, Univers chloride 09-24-05 Starting ity of (NS) 15:49: 19:12 09/24/20 [place] injection 00 :50 at 1049, Medica l Until Wed Branch 09/24/20 at 1412, Routine, Intra-op neomycin-po 2020- No PRN, Unive rs lymyxin-dex 09-24-05 Starting ity of amethasone 15:49: 19:12 09/24/20 [place] (MAXITROL) 00 :50 at 1049, Medic al 3.5 Until Wed Branch mg/g-10,000 09/24/20 at unit/g-0.1 1412, % Routine, ophthalmic Intra-op ointment Hyaluronida 2020- No PRN, Unive rs se, Human 09-2405 Starting ity o f Recomb. 15:49: 19:12 09/24/20 [place] (HYLENEX) 00 :50 at 1049, Medica l injection Until Wed Branc h 09/24/20 at 1412, Routine, Intra-op sodium 2020- No PRN, Univers chloride 09-24-05 Starting ity of (NS) 15:49: 19:12 09/24/20 [place] injection 00 :50 at 1049, Medica l Until Wed Branch 09/24/20 at 1412, Routine, Intra-op neomycin-po 2020- No PRN, Unive rs lymyxin-dex 09-24-05 Starting ity of amethasone 15:49: 19:12 09/24/20 [place] (MAXITROL) 00 :50 at 1049, Medic al 3.5 Until Wed Branch mg/g-10,000 09/24/20 at unit/g-0.1 1412, % Routine, ophthalmic Intra-op ointment Hyaluronida 2020- No PRN, Unive rs se, Human 09-24 05-05 Starting ity o f Recomb. 15:49: 19:12 Tue09/24/20 [place] (HYLENEX) 00 :50 at 1049, Medica l injection Until Tue Branc h 09/24/20 at 1412, Routine, Intra-op eye block Yes PRN, Univers syringe 11 05 Starting ity o f mL 15:48: Tue09/24/20 [place] 00 at 1048, Medical Until Branch Discontinu ed, Intra-op eye block 2020- No PRN, Univers syringe 11 09-24 05-05 Starting ity of mL 15:48: 19:12 Tue09/24/20 [place] 00 :50 at 1048, Medical Until Tue Branch 09/24/20 at 1412, Intra-op eye block 2020- No PRN, Univers syringe 09-24 05-05 Starting ity of mL 15:48: 19:12 Tue09/24/20 [place] 00 :50 at 1048, Medical Until Tue Branch 09/24/20 at 1412, Intra-op EPINEPHrine Yes PRN, Univer s 1:1,000 (1 05 Starting ity o f mg/mL) 15:47: Tue09/24/20 [place] (ADRENALIN) 00 at 1047, Medi giovanna injection Until Branch Discontinu ed, Routine, Intra-op DUOVISC Yes PRN, Univers (DUOVISC 05 Starting ity of VISCO 15:47: Tue09/24/20 [place] ELASTIC) 3 00 at 1047, Medic al %-4 %(0.5 Until Branch mL) 1 % Discontinu (0.55 mL) ed, intraocular Routine, injection Intra-op dexamethaso Yes PRN, Univer s ne 5-05 Starting ity of (DECADRON 15:47: Tue09/24/20 [place] PHOSPHATE) 00 at 1047, Medic al injection Until Branch Discontinu ed, Routine, Intra-op ceFAZolin Yes PRN, Univers (ANCEF) 5-05 Starting ity of injection 15:47: Tue09/24/20 [place] 00 at 1047, Medical Until Branch Discontinu ed, KELECHI, Intra-op EPINEPHrine 2021-0 2021- No PRN, Unive rs 1:1,000 (1 09-24 Starting ity of mg/mL) 15:47: 19:12 09/24/20 [place] (ADRENALIN) 00 :50 at 1047, Medi giovanna injection Until Wed Branc h 09/24/20 at 1412, Routine, Intra-op DUOVISC 2020- No PRN, Univers (DUOVISC 09-24 Starting ity of VISCO 15:47: 19:12 Tue09/24/20 [place] ELASTIC) 3 00 :50 at 1047, Medic al %-4 %(0.5 Until Wed Branc h mL) 1 % 09/24/20 at (0.55 mL) 1412, intraocular Routine, injection Intra-op dexamethaso 2020- No PRN, Unive rs ne 09-24 Starting ity of (DECADRON 15:47: 19:12 Tue09/24/20 [place] PHOSPHATE) 00 :50 at 1047, Medic al injection Until Tue Branc h 09/24/20 at 1412, Routine, Intra-op ceFAZolin 2020- No PRN, Univers (ANCEF) 09-24 Starting ity of injection 15:47: 19:12 Tue09/24/20 [place] 00 :50 at 1047, Medical Until Wed Branch 09/24/20 at 1412, KELECHI, Intra-op EPINEPHrine 2020- No PRN, Unive rs 1:1,000 (1 09-24 Starting ity of mg/mL) 15:47: 19:12 09/24/20 [place] (ADRENALIN) 00 :50 at 1047, Medi giovanna injection Until Wed Branc h 09/24/20 at 1412, Routine, Intra-op DUOVISC 2020- No PRN, Univers (DUOVISC 09-24 Starting ity of VISCO 15:47: 19:12 Tue09/24/20 [place] ELASTIC) 3 00 :50 at 1047, Medic al %-4 %(0.5 Until Wed Branc h mL) 1 % 09/24/20 at (0.55 mL) 1412, intraocular Routine, injection Intra-op dexamethaso 2020- No PRN, Unive rs ne 09-24 Starting ity of (DECADRON 15:47: 19:12 09/24/20 [place] PHOSPHATE) 00 :50 at 1047, Medic al injection Until Wed Branc h 09/24/20 at 1412, Routine, Intra-op ceFAZolin 2020- No PRN, Univers (ANCEF) 09-24 Starting ity of injection 15:47: 19:12 09/24/20 [place] 00 :50 at 1047, Medical Until Wed Branch 09/24/20 at 1412, KELECHI, Intra-op carbachoL Yes PRN, Univers (MIOSTAT) 09-24 Starting ity of 0.01 % 15:46: 09/24/20 [place] intraocular 00 at 1046, Medi giovanna injection Until Branch Discontinu ed, Routine, Intra-op balanced Yes PRN, Univers salt irrig 09-24 Starting ity o f soln comb1 15:46: 09/24/20 [place] (BSS PLUS) 00 at 1046, Medic al ophthalmic Until Branch solution Discontinu 500 mL bag ed, Routine, Intra-op carbachoL 2020- No PRN, Univers (MIOSTAT) 09-24 Starting ity o f 0.01 % 15:46: 19:12 09/24/20 [place] intraocular 00 :50 at 1046, Medi giovanna injection Until Wed Branc h 09/24/20 at 1412, Routine, Intra-op balanced 2020- No PRN, Univers salt irrig 09-24 Starting ity of soln comb1 15:46: 19:12 09/24/20 [place] (BSS PLUS) 00 :50 at 1046, Medic al ophthalmic Until Wed Bran ch solution 09/24/20 at 500 mL bag 1412, Routine, Intra-op carbachoL 2020- No PRN, Univers (MIOSTAT) 09-24 Starting ity o f 0.01 % 15:46: 19:12 09/24/20 [place] intraocular 00 :50 at 1046, Medi giovanna injection Until Wed Branc h 09/24/20 at 1412, Routine, Intra-op balanced 2020- No PRN, Univers salt irrig 09-24 05-05 Starting ity of soln comb1 15:46: 19:12 09/24/20 [place] (BSS PLUS) 00 :50 at 1046, Medic al ophthalmic Until Wed Bran ch solution 09/24/20 at 500 mL bag 1412, Routine, Intra-op mydriatic 2020- No .5mL 0.5 mL, Univ ers #5 5-05 05-05 Left Eye, ity of ophthalmic 14:00: 14:18 ONCE, 1 [place] as solution 00 :00 dose, Wed Medica l 0.5 mL 09/24/20 at Branch syringe 0900, Routine lactated 2020- No 1000mL at 42 Unive rs ringers IV 5-05 05-05 mL/hr, ity of infusion 14:00: 14:18 1,000 mL, [place] as 1,000 mL 00 :00 IV Medical Infusion, Branch ONCE, 1 dose, 09/24/20 at 0900, Routine, DSU Pre-op mydriatic 2020- No .5mL 0.5 mL, Univ ers #5 09-24 05-05 Left Eye, ity of ophthalmic 14:00: 14:18 ONCE, 1 [place] solution 00 :00 dose, Wed Medica l 0.5 mL 09/24/20 at Branch syringe 0900, Routine lactated 2020- No 1000mL at 42 Unive rs ringers IV 5-05 05-05 mL/hr, ity of infusion 14:00: 14:18 1,000 mL, [place] as 1,000 mL 00 :00 IV Medical Infusion, Branch ONCE, 1 dose, 09/24/20 at 0900, Routine, DSU Pre-op mydriatic 2020- No .5mL 0.5 mL, Univ ers #5 5-05 05-05 Left Eye, ity of ophthalmic 14:00: 14:18 ONCE, 1 [place] solution 00 :00 dose, Wed Medica l 0.5 mL 09/24/20 at Branch syringe 0900, Routine lactated 2020- No 1000mL at 42 Unive rs ringers IV 5-05 05-05 mL/hr, ity of infusion 14:00: 14:18 1,000 mL, [place] as 1,000 mL 00 :00 IV Medical Infusion, [place] ONCE, 1 dose, Tue09/24/20 at 0900, Routine, DSU Pre-op aspirin 81 2020-0 Yes 325mg Take 325 Un jana mg chewable 4-30 mg by ity of tablet 20:51: mouth [place] 43 daily. Medical Branch Losartan Losartan 2019-0 Yes Na [place] [address] [facility] [address] Potassium Potassium 9-14 at night L ukes - 00:00: [facility] metoprolol 2019-0 2020- No 5mg 5 mg, Slow Univers (LOPRESSOR) 02-01 IV Push, ity of injection 5 03:15: 02:10 ONCE, 1 [place] mg 00 :00 dose, Fri Medical 02/01/20 at Branch 2215, KELECHI losartan 25 2019-0 Yes 25mg Take 25 mg Univers mg tablet 9-04 by mouth ity of 16:18: every [place] 12 evening. [facility] Branch clopidogreL 2020-0 Yes 75mg Take 75 mg Univers 75 mg 9-04 by mouth ity of tablet 16:18: daily. [address] metoprolol 2019-0 Yes 50mg Take 50 mg U nivers succinate 9-04 by mouth ity of XL 50 mg 24 16:18: daily. [place] hr tablet [address] [place] [address] aspirin 81 2019-0 Yes 81mg Take 81 mg U nivers mg chewable 9-04 by mouth ity of tablet 16:18: daily. [address] losartan 25 2019-0 Yes 25mg Take 25 mg Univers mg tablet 9-04 by mouth ity of 16:18: every [place] 12 evening. [facility] clopidogreL 2020-0 Yes 75mg Take 75 mg Univers 75 mg 9-04 by mouth ity of tablet 16:18: daily. [address] metoprolol 2020-0 Yes 50mg Take 50 mg U nivers succinate 9-04 by mouth ity of [place] 50 mg 24 16:18: [place] [address] [place] [address] aspirin 81 2020-0 Yes 81mg Take 81 mg U nivers mg chewable 9-04 by mouth ity of tablet 16:18: daily. [address] losartan 25 2019-0 Yes 25mg Take 25 mg Univers mg tablet 9-04 by mouth ity of 16:18: every [place] 12 evening. Medical Branch clopidogreL 2020-0 Yes 75mg Take 75 mg Univers 75 mg 9-04 by mouth ity of tablet 16:18: daily. [place] [address] Medical Branch metoprolol 2020-0 Yes 50mg Take 50 mg U nivers succinate 9-04 by mouth ity of XL 50 mg 24 16:18: [place] 12 [facility] losartan 25 2020-0 Yes 25mg Take 25 mg Univers mg tablet 9-04 by mouth ity of 16:18: every [place] 12 evening. Medical Branch clopidogreL 2020-0 Yes 75mg Take 75 mg Univers 75 mg 9-04 by mouth ity of tablet 16:18: daily. [place] [address] Medical Branch metoprolol 2020-0 Yes 50mg Take 50 mg U nivers succinate 9-04 by mouth ity of XL 50 mg 24 16:18: [place] 12 [facility] aspirin 81 2020-0 Yes 81mg Take 81 mg U nivers mg chewable 9-04 by mouth ity of tablet 16:18: daily. [place] [address] Medical Branch losartan 25 2020-0 Yes 25mg Take 25 mg Univers mg tablet 9-04 by mouth ity of 16:18: every [place] 12 evening. [facility] Branch clopidogreL 2020-0 Yes 75mg Take 75 mg Univers 75 mg 9-04 by mouth ity of tablet 16:18: daily. [place] [address] Medical Branch metoprolol 2020-0 Yes 50mg Take 50 mg U nivers succinate 9-04 by mouth ity of XL 50 mg 24 16:18: [place] 12 [facility] aspirin 81 2020-0 Yes 81mg Take 81 mg U nivers mg chewable 9-04 by mouth ity of tablet 16:18: daily. [place] [address] Medical Branch atorvastati 2020-0 Yes 80mg Take 80 mg Univers n 80 mg 9-04 by mouth ity of tablet 16:18: at [place] [address] bedtime. Medical Branch atorvastati 2020-0 Yes 80mg Take 80 mg Univers n 80 mg 9-04 by mouth ity of tablet 16:18: at [place] [address] bedtime. Medical Branch atorvastati 2020-0 Yes 80mg Take 80 mg Univers n 80 mg 9-04 by mouth ity of tablet 16:18: at [place] [address] bedtime. Medical Branch atorvastati 2020-0 Yes 80mg Take 80 mg Univers n 80 mg 9-04 by mouth ity of tablet 16:18: at [place] 11 bedtime. Medical Branch atorvastati 2019- Yes 80mg Take 80 mg Univers n 80 mg 9-04 by mouth ity of tablet 16:18: at [place] 11 bedtime. Medical Branch Niacin 250 2019- Yes Muscle 1{tbl} Take 1 U nivers mg TbSR 9-04 cramps tablet by ity o f 00:00: mouth with [place] 00 evening Medical meal. Branch Niacin 250 Yes [id number] 1{tbl} Take 1 Univers mg TbSR 9-04 tablet by ity of 00:00: mouth with [place] 00 evening Medical meal. Branch Niacin 250 Yes [id number] 1{tbl} Take 1 Univers mg TbSR 9-04 tablet by ity of 00:00: mouth with [place] 00 evening Medical meal. Branch Niacin 250 Yes [id number] 1{tbl} Take 1 Univers mg TbSR 9-04 tablet by ity of 00:00: mouth with [place] 00 evening Medical meal. Branch Niacin 250 Yes [id number] 1{tbl} Take 1 Univers mg TbSR 9-04 tablet by ity of 00:00: mouth with [place] 00 evening Medical meal. Branch Niacin 250 Yes [id number] 1{tbl} Take 1 Univers mg TbSR 9-04 tablet by ity of 00:00: mouth with [place] 00 evening Medical meal. Branch Niacin 250 Yes [id number] 1{tbl} Take 1 Univers mg TbSR 9-04 tablet by ity of 00:00: mouth with [place] 00 evening Medical meal. Branch Niacin 250 Yes [id number] 1{tbl} Take 1 Univers mg TbSR 9-04 tablet by ity of 00:00: mouth with [place] 00 evening Medical meal. Branch Niacin 250 Yes [id number] 1{tbl} Take 1 Univers mg TbSR 9-04 tablet by ity of 00:00: mouth with [place] 00 evening Medical meal. Branch Niacin 250 Yes [id number] 1{tbl} Take 1 Univers mg TbSR 9-04 tablet by ity of 00:00: mouth with [place] 00 evening Medical meal. Branch Niacin 250 Yes [id number] 1{tbl} Take 1 Univers mg TbSR 9-04 tablet by ity of 00:00: mouth with evening Medical meal. Branch Niacin 250 2019- Yes [id number] 1{tbl} Take 1 Univers mg TbSR 9-04 tablet by ity of 00:00: mouth with evening Medical meal. Branch Losartan Losartan Yes Na Cordova [address] [facility] Potassium Potassium 01-22 [facility] 00 [facility] Clinics Metoprolol Metoprolol Yes Na Cordova [address] [facility] Succinate Succinate [facility] - ER ER [facility] Metoprolol Metoprolol Yes Na Cordova take [address] [facility] Succinate Succinate tablet Lonnie es - ER ER once daily [facility] Immunizations Ordered Filled Immunization Date Status Comments [facility] e Immunization Name Name FluAD FluAD 2019-05-[address] [facility] - 00:[facility]:00 [facility] Vital Signs Vital Name Observation Time Observation Value Comments Source Systolic blood 2020-10-08 17:30:00 135 mm[Hg] Univer sity of [facility] Diastolic blood 2020-10-08 17:30:00 75 mm[Hg] Unive rsity of [facility] Heart rate 2020-10-08 17:30:00 61 /min [facility] Body temperature 2020-10-08 17:30:00 36.61 [facility] [place] [facility] Respiratory rate 2020-10-08 17:30:00 20 /min General acute hospital Oxygen saturation in 2020-10-08 17:30:00 97 /min [facility] Arterial blood by [facility] [place] [facility] Pulse oximetry Branch Body height 2020-10-02 19:08:[address] [facility] Body weight 2020-10-02 19:08:[address] [facility] BMI 2020-10-02 19:08:00 31.51 kg/m2 [facility] Systolic blood 2020-10-08 13:31:00 134 mm[Hg] Univer sity of [facility] Diastolic blood 2020-10-08 13:31:00 64 mm[Hg] Unive rsity of [facility] Heart rate 2020-10-08 13:31:00 67 /min [facility] [place] [facility] Body temperature 2020-10-08 13:31:00 36.33 Ligia [facility] [place] [facility] Respiratory rate 2020-10-08 13:31:00 20 /min [facility] [place] [facility] Oxygen saturation in 2020-10-08 13:31:00 98 /min University of Arterial blood by [facility] [place] [facility] Pulse oximetry Branch Body height 2020-10-02 19:08:00 167.6 cm [facility] [place] [facility] Body weight 2020-10-02 19:08:00 88.5 kg [facility] [place] [facility] BMI 2020-10-02 19:08:00 31.51 kg/m2 [facility] [place] [facility] Systolic blood 2020-09-24 17:02:00 136 mm[Hg] Univer sity of [facility] [place] [facility] Diastolic blood 2020-09-24 17:02:00 47 mm[Hg] Unive rsity of [facility] [place] [facility] Heart rate 2020-09-24 17:02:00 52 /min [facility] [place] [facility] Respiratory rate 2020-09-24 17:02:00 14 /min Univ ers[facility] [place] [facility] Oxygen saturation in 2020-09-24 17:02:00 99 /min University of Arterial blood by [facility] [place] [facility] Pulse oximetry Branch Body temperature 2020-09-24 16:46:00 36.44 Ligia [facility] [place] [facility] Body height 2020-09-23 19:15:00 167.6 cm [facility] [place] [facility] Body weight 2020-09-23 19:15:00 88.451 kg [facility] [place] [facility] BMI 2020-09-23 19:15:00 31.47 kg/m2 [facility] [place] [facility] Systolic blood 2020-09-24 14:07:00 152 mm[Hg] Univer sity of [facility] [place] [facility] Diastolic blood 2020-09-24 14:07:00 71 mm[Hg] Unive rsity of [facility] [place] [facility] Heart rate 2020-09-24 14:07:00 62 /min [facility] [place] [facility] Body temperature 2020-09-24 14:07:00 36.56 Ligia [facility] [place] [facility] Respiratory rate 2020-09-24 14:07:00 21 /min Univ [facility] [place] [facility] Oxygen saturation in 2020-09-24 14:07:00 96 /min University of Arterial blood by [facility] giovanna Pulse oximetry Branch Systolic blood 2020-09-24 14:07:00 152 mm[Hg] Univer sity of [facility] [place] [facility] Diastolic blood 2020-09-24 14:07:00 71 mm[Hg] Unive rsity of [facility] [place] [facility] Heart rate 2020-09-24 14:07:00 62 /min [facility] [place] [facility] Body temperature 2020-09-24 14:07:00 36.56 Ligia [facility] [place] [facility] Respiratory rate 2020-09-24 14:07:00 21 /min Univ ers[facility] [place] [facility] Oxygen saturation in 2020-09-24 14:07:00 96 /min University of Arterial blood by [facility] [place] [facility] Pulse oximetry Branch Body height 2020-09-23 19:15:00 167.6 cm [facility] [place] [facility] Body weight 2020-09-23 19:15:00 88.451 kg [facility] [place] [facility] BMI 2020-09-23 19:15:00 31.47 kg/m2 [facility] [place] [facility] Body height 2020-09-23 19:15:00 167.6 cm [facility] [place] [facility] Body weight 2020-09-23 19:15:00 88.451 kg [facility] [place] [facility] BMI 2020-09-23 19:15:00 31.47 kg/m2 [facility] [place] [facility] Systolic blood 2020-09-24 14:07:00 152 mm[Hg] Univer sity of [place] [facility] Diastolic blood 2020-09-24 14:07:00 71 mm[Hg] Unive rsity of [place] [facility] Heart rate 2020-09-24 14:07:00 62 /min [facility] [place] [facility] Body temperature 2020-09-24 14:07:00 36.56 Ligia Univ [facility] [place] [facility] Respiratory rate 2020-09-24 14:07:00 21 /min Univ ersity [facility] [place] [facility] Oxygen saturation in 2020-09-24 14:07:00 96 /min University of Arterial blood by [facility] [place] [facility] Pulse oximetry Branch Systolic blood 2020-09-24 14:07:00 152 mm[Hg] Univer sity of [facility] [place] [facility] Diastolic blood 2020-09-24 14:07:00 71 mm[Hg] Unive rsity of [place] [facility] Heart rate 2020-09-24 14:07:00 62 /min [facility] [place] [facility] Body temperature 2020-09-24 14:07:00 36.56 Ligia Univ ersity of [facility] Respiratory rate 2020-09-24 14:07:00 21 /min Univ ersity of [facility] Oxygen saturation in 2020-09-24 14:07:00 96 /min University of Arterial blood by [place] [facility] giovanna Pulse oximetry Branch Body height 2020-09-23 19:15:00 167.6 cm [facility] [place] [facility] Body weight 2020-09-23 19:15:00 88.451 kg [facility] [place] [facility] BMI 2020-09-23 19:15:00 31.47 kg/m2 [facility] [place] [facility] Body height 2020-09-23 19:15:00 167.6 cm [facility] [place] [facility] Body weight 2020-09-23 19:15:00 88.451 kg [facility] [place] [facility] BMI 2020-09-23 19:15:00 31.47 kg/m2 [facility] [place] [facility] Systolic blood 2020-02-02 03:00:00 167 mm[Hg] Univer sity of [facility] [place] [facility] Diastolic blood 2020-02-02 03:00:00 58 mm[Hg] Unive rsity of [facility] [place] [facility] Heart rate 2020-02-02 03:00:00 55 /min [facility] [place] [facility] Respiratory rate 2020-02-02 03:00:00 20 /min Univ ersity [facility] [place] [facility] Oxygen saturation in 2020-02-02 03:00:00 97 /min University of Arterial blood by [place] [facility] giovanna Pulse oximetry Branch Body temperature 2020-02-02 00:44:00 36.89 Ligia Univ [facility] [place] [facility] Body height 2020-02-02 00:44:00 167.6 cm [facility] [place] [facility] Body weight 2020-02-02 00:44:00 88.451 kg [facility] [place] [facility] BMI 2020-02-02 00:44:00 31.47 kg/m2 [facility] [place] [facility] Systolic blood 2020-02-02 03:00:00 167 mm[Hg] Univer sity of [facility] [place] [facility] Diastolic blood 2020-02-02 03:00:00 58 mm[Hg] Unive rsity of [facility] [place] [facility] Heart rate 2020-02-02 03:00:00 55 /min [facility] [place] [facility] Respiratory rate 2020-02-02 03:00:00 20 /min Univ ers[facility] [place] [facility] Oxygen saturation in 2020-02-02 03:00:00 97 /min University of Arterial blood by [facility] giovanna Pulse oximetry Branch Body temperature 2020-02-02 00:44:00 36.89 Ligia Univ [facility] [place] [facility] Body height 2020-02-02 00:44:00 167.6 cm [facility] [place] [facility] Body weight 2020-02-02 00:44:00 88.451 kg [facility] [place] [facility] BMI 2020-02-02 00:44:00 31.47 kg/m2 [facility] [place] [facility] Systolic blood 2020-01-25 18:37:00 162 mm[Hg] Univer sity of [facility] [place] [facility] Diastolic blood 2020-01-25 18:37:00 65 mm[Hg] Unive rsity of [facility] [place] [facility] Heart rate 2020-01-25 18:37:00 63 /min [facility] [place] [facility] Oxygen saturation in 2020-01-25 18:37:00 96 /min University of Arterial blood by [facility] giovanna Pulse oximetry Branch Respiratory rate 2020-01-25 18:00:00 20 /min Univ ers[facility] [place] [facility] Body temperature 2020-01-25 16:13:00 37.06 Ligia [facility] [place] [facility] Body height 2020-01-25 16:13:00 167.6 cm [facility] [place] [facility] Body weight 2020-01-25 16:13:00 88.451 kg [facility] [place] [facility] BMI 2020-01-25 16:13:00 31.47 kg/m2 [facility] [place] [facility] Systolic blood 2020-01-25 18:37:00 162 mm[Hg] Univer sity of [facility] [place] [facility] Diastolic blood 2020-01-25 18:37:00 65 mm[Hg] Unive rsity of [facility] [place] [facility] Heart rate 2020-01-25 18:37:00 63 /min [facility] [place] [facility] Oxygen saturation in 2020-01-25 18:37:00 96 /min University of Arterial blood by [facility] [place] [facility] Pulse oximetry Branch Respiratory rate 2020-01-25 18:00:00 20 /min Univ [facility] [place] [facility] Body temperature 2020-01-25 16:13:00 37.06 Ligia [facility] [place] [facility] Body height 2020-01-25 16:13:00 167.6 cm [facility] [place] [facility] Body weight 2020-01-25 16:13:00 88.451 kg [facility] [place] [facility] BMI 2020-01-25 16:13:00 31.47 kg/m2 [facility] [place] [facility] Systolic blood 2020-01-22 02:37:00 197 mm[Hg] Univer sity of [facility] [place] [facility] Diastolic blood 2020-01-22 02:37:00 79 mm[Hg] Unive rsity of [facility] [place] [facility] Heart rate 2020-01-22 02:37:00 72 /min [facility] [place] [facility] Body temperature 2020-01-22 02:37:00 36.67 Ligia [facility] [place] [facility] Respiratory rate 2020-01-22 02:37:00 18 /min Univ [facility] [place] [facility] Body height 2020-01-22 02:37:00 167.6 cm [facility] [place] [facility] Body weight 2020-01-22 02:37:00 88.451 kg [facility] [place] [facility] BMI 2020-01-22 02:37:00 31.47 kg/m2 [facility] [place] [facility] Oxygen saturation in 2020-01-22 02:37:00 97 /min University of Arterial blood by [facility] [place] [facility] Pulse oximetry Branch Systolic blood 2020-01-22 02:37:00 197 mm[Hg] Univer sity of [facility] [place] [facility] Diastolic blood 2020-01-22 02:37:00 79 mm[Hg] Unive rsity of [facility] [place] [facility] Heart rate 2020-01-22 02:37:00 72 /min [facility] [place] [facility] Body temperature 2020-01-22 02:37:00 36.67 Ligia [facility] [place] [facility] Respiratory rate 2020-01-22 02:37:00 18 /min Univ ers[facility] [place] [facility] Body height 2020-01-22 02:37:[address] [facility] Body weight 2020-01-22 02:37:[address] [facility] BMI 2020-01-22 02:37:00 31.47 kg/m2 [facility] Oxygen saturation in 2020-01-22 02:37:00 97 /min University Arterial blood by [facility] [place] [facility] Pulse oximetry Branch Procedures Procedure Date / Time Performing Source Performed Clinician PHACOEMULSIFICATION OF 2020-10-08 Devante Villela [facility] CATARACT WITH INTRAOCULAR 16:38:00 Medica l Novelty LENS IMPLANT PATIENT QUESTIONNAIRE 2020-10-08 Doctor Unassigned, [facility] 05:01:00 [place] [facility] DAY SURGERY - ADC 2020-10-08 Doctor Unassigned, [facility] 05:01:00 [place] [facility] CONSENT/REFUSAL FOR DIAGNOSIS 2020-10-07 Doctor Unassigned, [facility] AND TREATMENT 15:52:46 [place] [facility] CONSENT/REFUSAL FOR DIAGNOSIS 2020-10-07 Doctor Unassigned, [facility] 15:52:46 [place] [facility] ASSIGNMENT OF BENEFITS 2020-10-07 Doctor Unassigned, [facility] 15:52:12 [place] [facility] ASSIGNMENT OF BENEFITS 2020-10-07 Doctor Unassigned, [facility] 15:52:12 [place] [facility] ASSIGNMENT OF BENEFITS 2020-10-07 Doctor Unassigned, [facility] 15:51:56 [place] [facility] ASSIGNMENT OF BENEFITS 2020-10-07 Doctor Unassigned, [facility] 15:51:56 [place] [facility] NOTICE OF PRIVACY PRACTICES 2020-10-07 Doctor Unassigned, [facility] 15:51:33 [place] [facility] NOTICE OF PRIVACY PRACTICES 2020-10-07 Doctor Unassigned, [facility] 15:51:33 [place] [facility] CONSENT/REFUSAL FOR DIAGNOSIS 2020-10-07 Doctor Unassigned, [facility] TREATMENT 15:51:04 [place] [facility] CONSENT/REFUSAL FOR DIAGNOSIS 2020-10-07 Doctor Unassigned, [facility] 15:51:04 [place] [facility] ASSIGNMENT OF BENEFITS 2020-10-07 Doctor Unassigned, [facility] 15:50:41 [place] [facility] ASSIGNMENT OF BENEFITS 2020-10-07 Doctor Unassigned, [facility] 15:50:41 [place] [facility] PHACOEMULSIFICATION OF 2020-09-24 Devante V[place]la [facility] CATARACT WITH INTRAOCULAR 16:07:00 Medica l Branch LENS IMPLANT PHACOEMULSIFICATION OF 2020-09-24 Manohar Devante Boudreaux [facility] CATARACT WITH INTRAOCULAR 16:07:00 Medica l Branch LENS IMPLANT ASSIGNMENT OF BENEFITS 2020-09-19 Doctor Unassigned, [facility] 15:49:55 [place] [facility] EXTERNAL PROVIDER RECORDS 2020-09-03 Doctor Unassigned, [facility] [place] 05:01:00 [place] [facility] REFERRAL- REQUEST/RESPONSE 2020-09-03 Doctor Unassigned, [facility] [place] 05:01:00 [place] [facility] EXTERNAL PROVIDER RECORDS 2020-09-03 Doctor Unassigned, [facility] [place] 05:01:00 [place] [facility] REFERRAL- REQUEST/RESPONSE 2020-09-03 Doctor Unassigned, [facility] [place] 05:01:00 [place] [facility] EXTERNAL PROVIDER RECORDS 2020-09-03 Doctor Unassigned, [facility] [place] 05:01:00 [place] [facility] REFERRAL- REQUEST/RESPONSE 2020-09-03 Doctor Unassigned, [facility] [place] 05:01:00 [place] [facility] MAGNESIUM 2020-02-02 Wing Lee [facility] 01:11:00 Medical Branch TROPONIN I 2020-02-02 Wing Lee [facility] 01:11:00 Medical Branch COMP. METABOLIC PANEL (69300) 2020-02-02 Wing Lee [facility] [place] 01:11:00 Medical Branch CBC WITH DIFF 2020-02-02 Wing Lee [facility] 01:11:00 Medical Branch EKG-12 LEAD 2020-02-02 Wing Lee [facility] 00:59:33 Medical Branch CONSENT/REFUSAL FOR DIAGNOSIS 2020-02-02 Doctor Unassigned, [facility] 00:30:47 [place] [facility] CREATINE KINASE 2020-01-25 Sam Mendiola [facility] 17:19:00 Medical Branch COMP. METABOLIC PANEL ([id number]) 2020-01-25 Sam Mendiola [facility] 17:19:00 Medical Branch CONSENT/REFUSAL FOR DIAGNOSIS 2020-01-25 Doctor Unassigned, [facility] 15:57:30 [place] [facility] NOTICE OF PRIVACY PRACTICES 2020-01-22 [facility] 02:[facility]05 [place] [facility] CONSENT/REFUSAL FOR DIAGNOSIS 2020-01-22 Doctor Unassigned, [facility] 02:26:18 [place] [facility] CONSENT/REFUSAL FOR DIAGNOSIS 2020-01-22 Doctor Unassigned, [facility] 02:26:17 [place] [facility] Plan of Care Planned Activity Planned Date Details Comments Source Future Scheduled 2021-09-24 Depression screening Uni [facility] Test 00:00:00 (procedure) [code = Medical Branch [id number]] Future Scheduled 2021-01-21 [facility] (Season Ended) [code Medical Branch = INFLUENZA VACCINE (Season Ended)] Future Scheduled 2007-08-26 Medicare Annual [facility] Test 00:00:00 Wellness Visit Medical [facility] (procedure) [code = 589005606805364] Future Scheduled 2007-08-26 Screening for [facility] Test 00:00:00 osteoporosis Medical Branch (procedure) [code = [id number]] Future Scheduled 2007-08-26 PNEUMOCOCCAL VACCINES Un [facility] Test 00:00:00 65+ (1 of 1 - PPSV23) Medica l Branch [code = PNEUMOCOCCAL VACCINES 65+ (1 of 1 - PPSV23)] Future Scheduled 1992 Zoster Recombinant Unive [facility] Test 00:00:00 Vaccine (SHINGRIX) (1 Medica l Branch of 2) [code = Zoster Recombinant Vaccine (SHINGRIX) (1 of 2)] Future Scheduled 1961 DTaP,Tdap,and Td Univers ity [facility] Test 00:00:00 Vaccines (1 - Tdap) Medical Branch [code = DTaP,Tdap,and Td Vaccines (1 - Tdap)] Encounters Start End Encounter Admission Attending Care Care Encounter Source Date/Time Date/Time Type Type Clinicians Facility Department ID 2021-03-22 [id number] Univers 18:37:14 [facility] 2021-03-22 Outpatient Deep VILLELA [facility] OPH [id number] Univers 16:20:46 [facility] 2021-04-13 2021-04-13 ambulatory [facility] [id number] [facility] 2021-03-30 2021-03-30 ambulatory [facility]MLC [facility] [id number] [facility] 2021-03-30 2021-03-30 ambulatory [facility]LMLC [facility] [id number] [facility] 2020-10-16 2020-10-16 Outpatient [facility]LMLC [facility] [id number] [facility] 2020-10-08 2020-10-08 [facility] [id number] Univers 08:29:00 12:45:00 Encounter Devante Denney [id number] ity [facility] [id number] [id number] [facility] 071 Novelty 2020-10-08 2020-10-08 Surgery [facility] [id number] Univers 10:45:00 11:25:00 Devante Denney [id number] ity [facility] [id number] [place] [id number] [facility] 020 Branch 2020-10-07 2020-10-07 Outpatient R [facility] [id number] Univers 11:45:00 11:45:00 [id number] [facility] [place] [facility] 2020-10-07 2020-10-07 Outpatient R MANOHAR [facility] [id number] Univers 11:45:00 11:45:00 DEVANTE [facility] [place] [facility] 2020-10-07 2020-10-07 Laboratory Only, Adc Test [facility] [id number] Univers 10:50:34 11:05:34 Only Devante [place] [id number] 0 [facility]y [place] [id number] [place] [id number] [address] 2020-10-06 2020-10-06 Outpatient STLMLC [facility]MLC [id number] [facility] 00[facility]:00 Celi Barney arias [facility] ent Clinics 2020-09-24 2020-09-24 Hospital [facility] [id number] Univers 08:55:00 12:12:00 Encounter Devante Boudreaux [place] [id number] [facility] [place] [id number] [id number] [facility] 071 Branch 2020-09-24 2020-09-24 Surgery [facility] [id number] Univers 10:52:00 11:32:00 Devante Boudreaux [place] [id number] [facility] [place] [id number] [place] [id number] [facility] 020 Branch 2020-09-23 2020-09-23 Laboratory Only, Adc Test [facility] [id number] Univers 09:19:55 09:34:55 Only Devante V[place]la Jumana [id number] 0 [facility] [place] [id number] [place] [id number] [address] 2020-09-23 2020-09-23 Outpatient R [facility] [id number] Univers 09:30:00 09:30:00 DEVANTE michael [facility] 2020-09-19 2020-09-19 Outpatient R [facility] [id number] Univers 13:00:00 13:00:00 [id number] alec [facility] 2020-09-19 2020-09-19 Outpatient R [facility] [id number] Univers 13:00:00 13:00:00 DEVANTE [facility] 2020-09-192020-09-19 Linesperson Reji Zuñiga Lab [place] 1.2.8 [id number] [id number] Univers 10:53:53 11:08:53 Visit Devante Villela 350.1.13.1 0 ity [place] 4[place]2.7.2.686 [place] [phone] Ny dical [facility] 353 [facility] 2020-09-19 2020-09-19 Orders Doctor VETO [id number] Univers 00:00:00 00:00:00 Only Unassigned, JACKIE [id number] [facility] 4.2.7.2.686 Will as [phone] [address] 2020-07-14 2020-07-14 [facility] [id number] [facility] 00:00:00 00:00:00 [facility] ent Clinics 2020-06-30 2020-06-30 Outpatient [facility] [id number] [place] 00:00:00 00:00:[address] 2020-06-09 2020-06-09 Outpatient [facility] [id number] [place] 00:00:00 00:00:00 771 Method i 2020-03-20 2020-03-20 Outpatient [facility] [id number] [place] 00:00:00 00:00:00 256 Method i 2020-02-26 2020-02-26 Outpatient GADHIA, [facility] [id number] [place] 00:00:00 00:00:00 DWIGHT 086 Method i 2020-02-07 2020-02-07 Outpatient [facility] [id number] [place] 00:00:00 00:00:00 815 Method i 2020-02-04 2020-02-04 [facility] [id number] [facility] 09:18:00 09:18:00 [facility] Medicine Outpati ent Clinics 2020-02-01 2020-02-01 Emergency [place] [id number] [facility] 19:53:00 22:28:00 Lilia Denney [id number] i ty of [place] 4.2.7.2.686 [facility] [phone] [address] 2020-02-01 2020-02-01 Emergency Wing Lee [facility] [id number] 19:53:00 22:28:00 Lilia Denney [id number] [place] [id number] [place] [phone] [facility] 2020-02-01 2020-02-01 Emergency X Wing LEE [facility] ERT [id number] Univers 19:53:00 19:53:00 ity [facility] 2020-01-31 2020-01-31 [facility] [id number] [facility] 09:17:00 09:17:00 Callystro [facility] ent [facility] 2020-01-30 2020-01-30 [facility] [id number] 09:30:00 09:30:00 [facility] Riiid [facility] ent [facility] 2020-01-25 2020-01-25 Emergency Sam Mendiola [facility] [id number] Univers 11:03:00 13:39:00 T [place] [id number] i ty of [place] 4.2.7.2.686 [facility] [id number] [address] 2020-01-25 2020-01-25 Emergency Sam Mendiola [facility] [id number] 11:03:00 13:39:00 T [place] [id number] [place] [id number] [place] [id number] 08 2020-01-25 2020-01-25 Emergency X [facility] ERT [id number] Univers 11:03:00 11:03:00 ity [facility] 2020-01-25 2020-01-25 [facility] [id number] 10:24:00 10:24:00 t [employer] [facility] ent [facility] 2020-01-24 2020-01-24 [facility] [id number] 15:31:00 15:31:00 t [employer] [place] - Eyeona [facility] Medicine Outpati ent Clinics 2020-01-23 2020-01-24 Outpatient ANTWAN [facility] [id number] [place] 00:00:00 00:00:00 TUYET Becerra [facility] 2020-01-23 2020-01-23 [facility] [id number] 10:40:00 10:40:00 t [employer] [place] [employer] [facility] Medicine Outpati ent Clinics 2020-01-21 2020-01-21 Emergency [facility] [id number] Univers 21:39:00 23:54:[facility] [place] [id number] [facility] [id number] [facility] [phone] [address] 2020-01-21 2020-01-21 Emergency [facility] [id number] 21:39:00 23:54:00 [facility] Rox [place] [id number] [place] 4.2.7.2.686 [place] [phone] [facility] 2020-01-21 2020-01-21 Emergency X [facility] ERT [id number] Univers 21:39:00 21:39:00 [facility] 2020-01-04 2020-01-04 [facility] [id number] 08:20:00 08:20:00 t [place]ona [facility] Medicine Outpati ent Clinics 2019-12-04 2019-12-04 [facility] [id number] 13:20:00 13:20:00 t [place] - Drive [facility] Medicine Outpati ent Clinics 2019-11-02 2019-11-02 [facility] [id number] 16:00:00 16:00:00 t [place] - Drive [facility] Medicine Outpati ent Clinics 2019-11-02 2019-11-02 [facility] [id number] 15:30:00 15:30:[address] Luke s - [address] [facility] Medicine l Medicine Outpati ent Clinics 2019-10-02 2019-10-02 [facility] [id number] 10:40:00 10:40:[address] Luke s - [address] [facility] l Medicine Outpati ent Clinics 2019-06-15 2019-06-15 [facility] [id number] 12:48:00 12:48:00 t Freedom [employer] Eye[employer] Luke s - Drive [facility] Medicine l Medicine Outpati ent Clinics 2019-05-11 2019-05-11 [facility] [id number] 08:40:00 08:40:00 t Freedom [employer] LuExiles s - Drive [facility] l Medicine Outpati ent Clinics 2019-04-27 2019-04-27 [facility] [id number] 16:00:00 16:00:00 t Freedom [employer] s - Drive [facility] l Medicine Outpati ent Clinics 2019-03-16 2019-03-16 [facility] [id number] 08:20:00 08:20:00 t Freedom [employer] Eyeona Lu[employer] s - Drive [facility] Medicine l Medicine Outpati ent Clinics 2019-01-26 2019-01-26 [facility] [id number] 09:40:00 09:40:00 t Freedom [employer] s - Drive [facility] Medicine l Medicine Outpati ent Clinics 2019-01-17 2019-01-17 [facility] [id number] 09:26:00 09:26:00 t Freedom [employer] Eyeona Lu[employer]iles s - Drive [facility] Medicine l Medicine Outpati ent Clinics 2018-12-08 2018-12-08 [facility] [id number] 08:30:00 08:30:00 t Freedom [employer] s - Drive [facility] l Medicine Outpati ent Clinics 2018-07-26 2018-07-26 [facility] [id number] 09:00:00 09:00:00 t Freedom [employer] Lu[employer] s - Drive [facility] Medicine Outpati ent Clinics 2018-06-13 2018-06-13 [facility] [id number] 08:45:00 08:45:[address] Luke s - [address] [facility] 2018-01-26 2018-01-26 [facility] [id number] 09:45:00 09:45:[address] ke s - Drive [facility] 2018-01-08 2018-01-08 [facility] [id number] 03:47:00 03:47:[address] Luke s - [address] [facility] 2017-12-29 2017-12-29 [facility] [id number] 13:45:00 13:45:[address] ke s - Drive [facility] 2017-12-28 2017-12-28 [facility] [id number] 08:47:00 08:47:00 t Freedom [facility] 2017-10-26 2017-10-26 [facility] [id number] 09:45:00 09:45:00 [facility] s [facility] ent Clinics Results Test Description Test Time Test Comments Results Result Comments Source TROPONIN I 2020-02-02 01:55:00 Test Item Value Reference Range Interpretation Comme nts TROPONIN I (test code = <0.012 See_Comment [Au tomated message] The [id number]) system which ge nerated this result tra nsmitted reference range : <=0.034 ng/mL. The refe rence range was not u sed to interpret this result as normal/abnormal . JASPREET (test code = JASPREET) Equal or Less than 0.034 ng/ml---Normal ?Note: Cardiac troponin begins to rise 3-4 hours after the onset of ischemia. Repeat in 4-6 hours if the sample was drawn within 3-4 hours of the onset of the symptom and found normal. Between 0.035 and 0.120 ng/mL--- Borderline. Questionable myocardial injury or necrosis ? ?Note: Serial measurement may be necessary to confirm or exclude the diagnosis of myocardial injury or necrosis; Clinical correlation (symptoms, EKGs, imaging studies, and others) required; Repeat in 4-6 hours if clinically indicated. ? Equal or Higher than 0.121 ng/mL---Abnormal. Myocardial Injury or Necrosis Likely ? Biotin has been reported to cause a negative bias, interpret results relative to patient's use of biotin. ? Lab Interpretation (test Normal code = 02828-1) [facility] Test Item Value Reference Range Interpretation Comments MAGNESIUM (test code = 2449634959) 2.3 mg/dL 1.7-2.4 Lab Interpretation (test code = Normal 79929-9) [facility] (29432)2020-02-02 01:43:00 Test Item Value Reference Range Interpretation Comments NA (test code = 140 mmol/L 135-145 6841645115) K (test code = 4.5 mmol/L 3.5-5 6288126742) CL (test code = 104 mmol/L 98-108 0834403434) CO2 TOTAL (test code = 29 mmol/L 23-31 3777894223) AGAP (test code = 2-16 5670455081) BUN (test code = 15 mg/dL 7-23 5148445633) GLUCOSE (test code = 132 mg/dL 70-110 H 6244218224) CREATININE (test code = 0.64 mg/dL 0.5-1.04 1980183049) TOTAL BILI (test code = 0.3 mg/dL 0.1-1.6 3121477165) CALCIUM (test code = 10.0 mg/dL 8.6-10.6 6115715602) T PROTEIN (test code = 7.1 g/dL 6.3-8.2 6348815362) ALBUMIN (test code = 4.0 g/dL 3.5-5 0788128473) ALK PHOS (test code = 107 U/L 34-122 0535011518) ALTv (test code = 21 U/L 5-35 1742-6) AST(SGOT) (test code = 27 U/L 13-40 1253758038) eGFR Calculation mL/min/1.73m2 (Non-) (test code = 4699248182) eGFR Calculation mL/min/1.73m2 () (test code = 4775527519) JASPREET (test code = JASPREET) Association of Glomerular Filtration Rate (GFR) and Staging of Kidney Disease* + --+ --+ ------+| GFR (mL/min/1.73 m2) ?| With Kidney Damage ?| ?Without Kidney Damage+ --------+ --------+ +| ?>90 ?| ?Stage one ?| ? Normal ?+ ---+ ---+ -------+| ?60-89 ?| ?Stage two ?| ? Decreased GFR ? + --+ --+ ------+| ?30-59 ?| ?Stage three ?| ? Stage three ? + --+ --+ ------+| ?15-29 ?| ?Stage four ? | ? Stage four ?+ ---+ ---+ -------+| ?<15 (or dialysis) ? ?| ?Stage five ? | ? Stage five ?+ ---+ ---+ -------+ *Each stage assumes the associated GFR level has been in effect for at least three months. ?Stages 1 to 5, with or without kidney disease, indicate chronic kidney disease. Notes: Determination of stages one and two (with eGFR >59mL/min/1.73 m2) requires estimation of kidney damage for at least three months as defined by structural or functional abnormalities of the kidney, manifested by either:Pathological abnormalities or Markers of kidney damage (including abnormalities in the composition of the blood or urine or abnormalities in imaging tests). Lab Interpretation Abnormal (test code = 63483-8) [facility] WITH [id number] 01:34:00 Test Item Value Reference Range Interpretation Comments WBC (test code = See_Comment [Automated message] 6690-2) The system [employer] generated this result transmitted ref erence range: 4.30 - 1 1.10 10*3/?L. The re ference range was not u sed to interpret this result as normal/abnor mal. RBC (test code = See_Comment [Automated message] 799-8) The system [employer] generated this result transmitted ref erence range: 3.93 - 5 .25 10*6/?L. The re ference range was not u sed to interpret this result as normal/abnor mal. HGB (test code = 14.2 g/dL 11.6-15 718-7) HCT (test code = 40.5 % 35.7-45.2 4544-3) MCV (test code = 88.2 fL 80.6-95.5 787-2) MCH (test code = 30.9 pg 25.9-32.8 785-6) MCHC (test code = 35.1 g/dL 31.6-35.1 786-4) RDW-SD (test code 40.2 fL 39-49.9 = 78444-7) RDW-CV (test code 12.5 % 12-15.5 = 788-0) PLT (test code = See_Comment [Automated message] 777-3) The system [employer] generated this result transmitted ref erence range: 166 - 35 8 10*3/?L. The re ference range was not u sed to interpret this result as normal/abnor mal. MPV (test code = 9.9 fL 9.5-12.9 85490-9) NRBC/100 WBC (test See_Comment [Automat ed message] code = 3852358794) The syste m which generated this result transmitted ref erence range: 0.0 - 10 .0 /100 WBCs. The refer ence range was not u sed to interpret this result as normal/abnor mal. NRBC x10^3 (test <0.01 See_Comment [Automated message] code = 2075572299) The syste m which generated this result transmitted ref erence range: 10*3/?L. The reference range was not used to interpr et this result as normal/abnormal . GRAN MAT (NEUT) % 66.5 % (test code = 770-8) IMM GRAN % (test 0.30 % code = 9399224453) LYMPH % (test code 24.2 % = 736-9) MONO % (test code 7.1 % = 5905-5) EOS % (test code = 1.5 % 713-8) BASO % (test code 0.4 % = 706-2) GRAN MAT 6.11 10*3/uL 1.88-7.09 x10^3(ANC) (test code = 3760201146) IMM GRAN x10^3 0.03 10*3/uL 0-0.06 (test code = 9089252980) LYMPH x10^3 (test 2.22 10*3/uL 1.32-3.29 code = 731-0) MONO x10^3 (test 0.65 10*3/uL 0.33-0.92 code = 742-7) EOS x10^3 (test 0.14 10*3/uL 0.03-0.39 code = 711-2) BASO x10^3 (test 0.04 10*3/uL 0.01-0.07 code = 704-7) [facility] (69818)2020-01-25 18:04:00 Test Item Value Reference Range Interpretation Comments NA (test code = 142 mmol/L 135-145 6141414961) K (test code = 4.0 mmol/L 3.5-5 3507794801) CL (test code = 106 mmol/L 98-108 2052671534) CO2 TOTAL (test code = 31 mmol/L 23-31 2085863319) AGAP (test code = 2-16 7938487628) BUN (test code = 13 mg/dL 7-23 4651626421) GLUCOSE (test code = 153 mg/dL 70-110 H 0099233347) CREATININE (test code = 0.62 mg/dL 0.5-1.04 6969521250) TOTAL BILI (test code = 0.4 mg/dL 0.1-1.3 2104574586) CALCIUM (test code = 9.9 mg/dL 8.6-10.6 6552330153) T PROTEIN (test code = 7.0 g/dL 6.3-8.2 7666383628) ALBUMIN (test code = 4.2 g/dL 3.5-5 5166920562) ALK PHOS (test code = 107 U/L 34-122 1896950356) ALTv (test code = 19 U/L 5-35 1742-6) AST(SGOT) (test code = 23 U/L 13-40 6166127056) eGFR Calculation mL/min/1.73m2 (Non-) (test code = 9636526238) eGFR Calculation mL/min/1.73m2 () (test code = 4752101099) JASPREET (test code = JASPREET) Association of Glomerular Filtration Rate (GFR) and Staging of Kidney Disease* + --+ --+ ------+| GFR (mL/min/1.73 m2) ?| With Kidney Damage ?| ?Without Kidney Damage+ --------+ --------+ +| ?>90 ?| ?Stage one ?| ? Normal ?+ ---+ ---+ -------+| ?60-89 ?| ?Stage two ?| ? Decreased GFR ? + --+ --+ ------+| ?30-59 ?| ?Stage three ?| ? Stage three ? + --+ --+ ------+| ?15-29 ?| ?Stage four ? | ? Stage four ?+ ---+ ---+ -------+| ?<15 (or dialysis) ? ?| ?Stage five ? | ? Stage five ?+ ---+ ---+ -------+ *Each stage assumes the associated GFR level has been in effect for at least three months. ?Stages 1 to 5, with or without kidney disease, indicate chronic kidney disease. Notes: Determination of stages one and two (with eGFR >59mL/min/1.73 m2) requires estimation of kidney damage for at least three months as defined by structural or functional abnormalities of the kidney, manifested by either:Pathological abnormalities or Markers of kidney damage (including abnormalities in the composition of the blood or urine or abnormalities in imaging tests). Lab Interpretation Abnormal (test code = 14843-0) [facility] [id number] 18:03:00 Test Item Value Reference Range Interpretation Comments CK (test code = 1709044250) 55 U/L 33-194 Lab Interpretation (test code = Normal 63586-1) [facility] Center[facility]ARS-CoV-[facility] (COVID-19) RNA [Presence] in Respiratory specimen by LIVAN with probe [id number] 13:02:35 Test Item Value Reference Range Interpretation Comments SARS-CoV-2 (COVID-19) RNA Not detected Not-Detected [Presence] in Respiratory specimen by LIVAN with probe detection (test code = 67176-9)"
[2021-04-19 16:15] LABS: Protime INR 0.92
[2021-04-19 16:16] LABS: Absolute Lymphocytes (CBC) 3.6 K/uL (0.7-4.9); Hematocrit 46.7 % (36.0-45.0); Lymphocytes % 31.2 % (15.3-44.8); MPV 8.1 fL (7.6-11.3); RBC Red Blood Cell Count 5.21 M/uL (3.86-4.86)
[2021-04-19 16:26] LABS: Albumin 4.3 g/dL (3.4-5.0); Bilirubin Direct 0.1 mg/dL (0-0.2); Bilirubin Total 0.4 mg/dL (0.2-1.0); Potassium 3.7 mmol/L (3.5-5.1); Protein, Total 8.6 g/dL (6.4-8.2)
[2021-04-19] MEDS ORDERED: LORAZEPAM 0.5 MG TABLET ONE (16:58)
--- NOTE | 2021-04-19 17:05 | EDPHYS ---
Physician Documentation [facility] Name: Deisy Yusuf Age: 80 yrs Sex: Female : 1940 Arrival Date: 04/19/2021 Time: 14:36 Bed 20 Private MD: ED Physician Inocencia Medina HPI: 04/19 15:35 This 80 yrs old Female presents to ER via Ambulatory with complaints of pm1 Vaginal Bleeding. 15:35 The patient presents with vaginal bleeding that is light, Present when wiping after pm1 using the rest room. Onset: The symptoms/episode began/occurred 4 day(s) ago. Modifying factors: The symptoms are alleviated by nothing, the symptoms are aggravated by nothing. Associated signs and symptoms: Pertinent negatives: dysuria, fever. Severity of symptoms: in the emergency department the symptoms are unchanged. The patient is not sexually active. The patient has not experienced similar symptoms in the past. The patient has not recently seen a physician, has an appointment scheduled, Tomorrow with PCP, Dr. Lopez. Patient presents to the ER with painless vaginal bleeding for 4 days. Historical: - Allergies: 15:11 Codeine; iw - Home Meds: 15:11 amlodipine 5 mg tab 1 tab once daily [Active]; aspirin 325 mg Oral tab 1 tab once daily iw [Active]; clopidogrel 75 mg Oral tab 1 tab once daily [Active]; d3 [Active]; fluticasone nasal [Active]; gabapentin 300 mg Oral cap 1 cap nightly [Active]; hydrochlorothiazide 25 mg Oral tab 1 tab once daily [Active]; losartan 100 mg Oral tab 1 tab once daily [Active]; magnesium / calcium [Active]; metoprolol succinate ER 50 mg daily [Active]; rosuvastatin 10 mg Oral tab 1 tab once daily [Active]; - PMHx: 15:11 CVA; Hyperlipidemia; Hypertension; iw - Immunization history:: Adult Immunizations up to date, Client reports receiving the 2nd dose of the Covid vaccine. - Social history:: Smoking status: Patient denies any tobacco usage or history of. Patient/guardian denies using alcohol, street drugs, IV drugs, caffeine. ROS: 15:35 Positive for vaginal bleeding, Negative for urinary symptoms. pm1 15:35 Constitutional: Negative for fever, chills, and weight loss, Cardiovascular: Negative for chest pain, palpitations, and edema, Respiratory: Negative for shortness of breath, cough, wheezing, and pleuritic chest pain, Abdomen/GI: Negative for abdominal pain, nausea, vomiting, diarrhea, and constipation, Back: Negative for injury and pain, MS/Extremity: Negative for injury and deformity, Skin: Negative for injury, rash, and discoloration. 15:35 All other systems are negative. Exam: 15:35 Constitutional: This is a well developed, well nourished patient who is awake, alert, pm1 and in no acute distress. Head/Face: Normocephalic, atraumatic. 15:35 Back: No spinal tenderness. No costovertebral tenderness. Full range of motion. Skin: Warm, dry with normal turgor. Normal color with no rashes, no lesions, and no evidence of cellulitis. MS/ Extremity: Pulses equal, no cyanosis. Neurovascular intact. Full, normal range of motion. 15:35 Eyes: Exam is negative for acute changes, Extraocular movements: no acute changes, Conjunctiva: no acute changes, no injection. 15:35 ENT: Exam is negative for acute changes, Mouth: no acute changes, Lips: normal, moist, Oral mucosa: normal, pink and intact, moist. 15:35 Cardiovascular: Exam negative for acute changes, Rate: normal, Rhythm: regular, Pulses: no pulse deficits are appreciated. 15:35 Respiratory: Exam negative for acute changes, respiratory distress, shortness of breath. 15:35 Abdomen/GI: Inspection: abdomen appears normal, Palpation: abdomen is soft and non-tender, in all quadrants. 15:35 Neuro: Exam negative for acute changes, Orientation: is normal, Mentation: is normal, Motor: is normal, moves all fours. 16:10 : Pelvic Exam: External exam: is normal, [employer] Work[employer]: [facility]. Patient with pm1 blood present in the vaginal vault. Small cystocele present at 12 0'clock . Vital Signs: 15:00 BP 141 / 78; Pulse 66; Resp 16; Pulse Ox 98% on R/A; sl2 16:00 BP 148 / 80; Resp 18; Pulse Ox 100% ; sl2 17:00 BP 157 / 86; Pulse 88; Resp 18; Temp 98.2; Pulse Ox 99% on R/A; sl2 MDM: 15:03 Patient medically screened. pm1 16:11 ED course: Shared decision making with patient and son to follow-up with her PCP for pm1 imaging and follow-up with gynecology for painless vaginal bleeding. Explained to them that my primary differential is gynecological cancer. Patient has appointment with PCP tomorrow. 16:29 Data reviewed: vital signs. Data interpreted: Pulse oximetry: on room air is 98 %. pm1 Interpretation: normal. 17:03 ED course: blood present in urine. Its most likely contamination from vaginal bleeding. pm1 04/19 15:34 Order name: Basic Metabolic Panel; Complete Time: 16:31 pm1 04/19 15:34 Order name: CBC with Diff; Complete Time: 16:31 pm1 04/19 15:34 Order name: Hepatic Function; Complete Time: 16:31 pm1 04/19 15:34 Order name: PT-INR; Complete Time: 16:31 pm1 04/19 16:10 Order name: Urine Microscopic Only pm1 04/19 16:10 Order name: Urine Microscopic Only; Complete Time: 17:53 EDMS 04/19 15:34 Order name: IV Saline Lock; Complete Time: 16:50 pm1 04/19 15:34 Order name: Labs collected and sent; Complete Time: 16:50 pm1 04/19 16:10 Order name: Urine Dipstick-Ancillary (obtain specimen); Complete Time: 17:06 pm1 Administered Medications: 16:50 Drug: Ativan (LORazepam) 0.5 mg Route: PO; sl2 17:11 Follow up: Response: No adverse reaction sl2 Disposition: 04/20 09:20 Co-signature as Attending Physician, Inocencia Medina MD I agree with the assessment and sp3 plan of care. Disposition Summary: 04/19/21 17:04 Discharge Ordered Location: Home pm1 Problem: new pm1 Symptoms: are unchanged pm1 Condition: Stable pm1 Diagnosis - Abnormal uterine and vaginal bleeding, unspecified pm1 Followup: pm1 - With: Emergency Department - When: As needed - Reason: Worsening of condition Followup: pm1 - With: Private Physician - When: 2 - 3 days - Reason: Recheck today's complaints, Continuance of care, Re-evaluation by your physician Discharge Instructions: - Discharge Summary Sheet pm1 - Abnormal Uterine Bleeding pm1 Forms: - Medication Reconciliation Form pm1 - Thank You Letter pm1 - Antibiotic Education pm1 - Prescription Opioid Use pm1 Signatures: Dispatcher [employer] Alison Melo RN RN iw John Gallardo, [employer] pm1 Inocencia Medina MD MD sp3 Chio House RN RN sl2 Corrections: (The following items were deleted from the chart) 04/19 16:28 16:11 ED course: Shared decision making with patient and son to follow-up with her PCP pm1 for imaging and follow-up with gynecology for painless vaginal bleeding. Explained to them that my primary differential is gynecological cancer . pm1
--- NOTE | 2021-04-19 17:05 | ER ---
Nurse's Notes [facility] Name: Deisy Yusuf Age: 80 yrs Sex: Female : 1940 Arrival Date: 04/19/2021 Time: 14:36 Bed 20 Private MD: Diagnosis: Abnormal uterine and vaginal bleeding, unspecified Presentation: 04/19 15:10 Chief complaint: Patient states: vaginal bleeding since Tuesday, denies pain , denies iw any other symptoms. Coronavirus screen: At this time, the client does not indicate any symptoms associated with coronavirus-19. Ebola Screen: Patient negative for fever greater than or equal to 101.5 degrees Fahrenheit, and additional compatible Ebola Virus Disease symptoms Patient denies exposure to infectious person. Patient denies travel to an Ebola-affected area in the 21 days before illness onset. No symptoms or risks identified at this time. Initial Sepsis Screen: Does the patient meet any 2 criteria? No. Patient's initial sepsis screen is negative. Does the patient have a suspected source of infection? No. Patient's initial sepsis screen is negative. Risk Assessment: Do you want to hurt yourself or someone else? Patient reports no desire to harm self or others. Onset of symptoms was April 15, 2021. 15:10 Method Of Arrival: Ambulatory iw 15:10 Acuity: KIRSTIN 3 iw Triage Assessment: 15:30 General: Appears distressed, well groomed, well developed, Behavior is anxious. sl2 Historical: - Allergies: 15:11 Codeine; iw - Home Meds: 15:11 amlodipine 5 mg tab 1 tab once daily [Active]; aspirin 325 mg Oral tab 1 tab once daily iw [Active]; clopidogrel 75 mg Oral tab 1 tab once daily [Active]; d3 [Active]; fluticasone nasal [Active]; gabapentin 300 mg Oral cap 1 cap nightly [Active]; hydrochlorothiazide 25 mg Oral tab 1 tab once daily [Active]; losartan 100 mg Oral tab 1 tab once daily [Active]; magnesium / calcium [Active]; metoprolol succinate ER 50 mg daily [Active]; rosuvastatin 10 mg Oral tab 1 tab once daily [Active]; - PMHx: 15:11 CVA; Hyperlipidemia; Hypertension; iw - Immunization history:: Adult Immunizations up to date, Client reports receiving the 2nd dose of the Covid vaccine. - Social history:: Smoking status: Patient denies any tobacco usage or history of. Patient/guardian denies using alcohol, street drugs, IV drugs, caffeine. Screenin:30 Abuse screen: Denies threats or abuse. Nutritional screening: No deficits noted. sl2 Tuberculosis screening: No symptoms or risk factors identified. Fall Risk None identified. Assessment: 15:30 Pain: Denies pain. : No deficits noted. Urine is clear, Reports vaginal bleeding that sl2 is. Vital Signs: 15:00 BP 141 / 78; Pulse 66; Resp 16; Pulse Ox 98% on R/A; sl2 16:00 BP 148 / 80; Resp 18; Pulse Ox 100% ; sl2 17:00 BP 157 / 86; Pulse 88; Resp 18; Temp 98.2; Pulse Ox 99% on R/A; sl2 ED Course: 14:36 Patient arrived in ED. ja2 15:03 John Gallardo NP is PHCP. pm1 15:03 Inocencia Medina MD is Attending Physician. pm1 15:11 Triage completed. iw 15:11 Arm band placed on. iw 15:20 [facility], ANTOINE is Primary Nurse. sl2 15:30 Patient has correct armband on for positive identification. sl2 15:37 Assist provider with pelvic exam: Performed by John Gallardo NP. 3 17:27 IV discontinued, intact, bleeding controlled, No redness/swelling at site. Pressure sl2 dressing applied. Administered Medications: 16:50 Drug: Ativan (LORazepam) 0.5 mg Route: PO; sl2 17:11 Follow up: Response: No adverse reaction sl2 Outcome: 17:04 Discharge ordered by . pm1 17:26 Discharged to home ambulatory, with family. sl2 17:26 Condition: stable 17:26 Discharge instructions given to patient, Instructed on discharge instructions, follow up and referral plans. Demonstrated understanding of instructions, follow-up care. 17:34 Patient left the ED. sl2 Signatures: Alison Montgomery RN RN John Gallardo NP HYDROELECTRIC PLANT TECHNICIAN pm1 Christina Yang 3 Michelle Rodriguez 2 [facility] RN RN 2
[2021-04-19 17:19] LABS: Urine Bacteria <20 /HPF (<20); Urine RBC 20-50 /HPF (NONE SEEN)
[2021-04-19 17:42] VITALS: BP 157/86; TEMP 98.2; O2SAT 99
[2021-04-24 11:33] LABS: Urine Blood 3+ (Negative); Urine Glucose NEGATIVE (Negative); Urine Protein NEGATIVE (Negative)
== END 2021-04-19 17:34 | disposition home or self-care (01) ==
LOC: ER 14:29
DX: N93.9 Abnormal uterine and vaginal bleeding, unspecified (principal); I10 Essential (primary) hypertension; Z86.73 Personal history of transient ischemic attack (TIA), and cerebral infarction without residual deficits; Z79.82 Long term (current) use of aspirin; Z88.5 Allergy status to narcotic agent
CPT/HCPCS: 36415; 80048; 80076; 81003; 81015; 85025; 85610; 99283

== ENCOUNTER 2021-04-28 11:35 | Day surgery (SDC) | payer OTHER ==
--- NOTE | 2021-04-25 12:37 | EKG ---
Test Date: 2021-04-24 Test Time: 14:13:09 Flexographic Press Set Up Operator: CATALINO MEASUREMENT RESULTS: Intervals: Rate: 82 FL: 158 QRSD: 86 QT: 382 QTc: 446 [place]: P: 10 FL: 158 QRS: -13 T: 66 INTERPRETIVE STATEMENTS: Sinus rhythm with fusion complexes Low voltage QRS Cannot rule out Anterior infarct, age undetermined Abnormal ECG Compared to ECG 08/18/2020 03:53:04 Fusion complex(es) now present Low QRS voltage now present Incomplete right bundle-branch block no longer present Myocardial infarct finding still present Electronically Signed On 04-25-21 12:35:38 INDUSTRIAL ENGINEERING TECHNOLOGIST by Joshua Bartholomew
[2021-04-28] MEDS ORDERED: Ringers Lactate 1,000 ML IV ONE (12:25)
[2021-04-28] MEDS ORDERED: ACETAMINOPHEN 500 MG TAB ONE (12:38)
[2021-04-28] MEDS ORDERED: CELECOXIB 100 MG CAPSULE ONE (12:38)
[2021-04-28] MEDS ORDERED: MIDAZOLAM HCL 2 MG/2 ML INJ ONE (13:24)
[2021-04-28] MEDS ORDERED: FENTANYL CITR 100 MCG/2 ML ONE (13:24)
[2021-04-28] MEDS ORDERED: propofoL 200 MG/20 ML VIAL IV ONE ×2 (13:24→13:55)
[2021-04-28] MEDS ORDERED: LIDOCAINE 2% MPF 5 ML VIAL ONE (13:25)
[2021-04-28] MEDS ORDERED: BACITRACIN OINTMENT 14 GM TUBE TOP ONE (13:30)
[2021-04-28] MEDS ORDERED: LIDOCAINE 1% W/EPI 1:100,000 MDV 20 ML VIAL ONE (13:30)
[2021-04-28] MEDS ORDERED: NS 0.9% VIAL 10 ML ONE (14:13)
[2021-04-28] MEDS ORDERED: CEFAZOLIN SODIUM 1 GM/VIAL ONE (14:13)
[2021-04-28] MEDS ORDERED: HYDROCODONE/APAP 5/325 MG TAB PO PRN (14:35)
--- NOTE | 2021-04-28 14:39 | P.BOP ---
Preoperative diagnosis: postmenopausal bleeding, cervical mass, CVA, anticoagulation Postoperative diagnosis: same Primary procedure: exam under anesthesia, Removal of cervical mass, pap smear, EMB Secondary procedure: EMB(pipelle used) Estimated blood loss: 50 Specimen: mass from cervical canal, EMB, pap smear Findings: mass prolapsing from cervical canal [id number] irregularsoft,normal ectocervix Anesthesia: MAC Complications: None Transferred to: Recovery Room Condition: Good
[2021-04-28 15:58] VITALS: BP 121/55; TEMP 97.2; O2SAT 98
--- NOTE | 2021-04-28 19:03 | OP ---
Date of Procedure: 04/28/2021 Surgeon: Zabrina Bowden MD Digital Archivist: No assistants. Preoperative Diagnoses: Postmenopausal bleeding, cervical mass, history of cerebrovascular accident, the patient on anticoagulation, held in the past 4 days in preparation for her procedure. Postoperative Diagnoses: Postmenopausal bleeding, cervical mass, history of cerebrovascular accident , the patient on anticoagulation, held in the past 4 days in preparation for her procedure. Procedures Performed: 1.Exam under anesthesia. 2.Removal of cervical mass. 3.Pap smear. 4.Endometrial biopsy using a Pipelle. Complications: No complications. Drains: No drains. Specimens: Mass from the cervical canal, EMB and Pap smear. Ebl: 50. Anesthesia: MAC. Disposition: Transferred to the recovery room in a stable condition. Findings: Mass, prolapse into the cervical canal 4 x 3 x 3 cm, regular and soft. The ectocervix aft er removal of the mass was completely unremarkable. Pap smear was done here. Then endometrial Pipel le was introduced slightly cavity deviating to the left inserted to 9 cm and 3 passes taken. Indications: The patient is a 80-year-old female who presented with postmenopausal bleeding a week b efore her presentation. Bleeding started to be bright red and noted every time she wiped. History o f bilateral salpingectomy or bilateral oophorectomy about 6 years ago. She was found to have a large 6 cm adnexal mass, possibly hydrosalpinx. She went to an [place] physician that [facility] according to the patient for removal. She was advised to have hysterectomy as well at amanda t time and has not had any followup other than her primary care physician. No postmenopausal bleedin g ever in the past. So, once she had this on clinical examination, she was found to have a cervical mass that appeared to be irregular and quite large to be biopsied in the office. Given the fact that she was bleeding, no biopsy was done at that time. I spoke to her credit collections analyst, Dr. Bartholomew and after discussing the cessation of anticoagulation to sto p her bleeding and this was done and 2 days later she stopped completely. Plan was to continue to ho ld so that we can do the biopsy of the mass and proceed with further management. Her son and her brought her to the office next day as the patient is forgetful post CVA effec ts, and once all that was consented for she was brought to the OR today. Procedure In Detail: 1 g of Ancef was given preop. The speculum was placed to expose the cervix after patient was placed in a supine fashion on the oper ating table and MAC was given and then placed in a dorsal lithotomy position. Then, the cervical mas s was well visualized and exposed with a bivalve speculum. Then, this mass was held almost close to the ectocervix with the help of ring forceps, and using this carefully, this was teased down graduall y, then twisted it around and the base of it cut to separate the mass and handed out for permanent pa thology. Then, Pap smear was done and a Cytobrush was used for the cervical canal, so this was handed out. Th en endometrial biopsy Pipelle was taken as the hysteroscope was not readily available. Then Pipelle was inserted to 9 cm. Three passes were taken. Adequate tissue was obtained and was given out for p ermanent pathology. The bleeding was minimal. All the instruments were removed. Instrument, needle , and sponge counts were correct at the end of the case. The patient tolerated procedure well. She will follow up with me in 1 week. She will restart her anticoagulation in 48 hours if her bleeding h as slowed down to a minimum and then she has her cardiology appointment tomorrow. She will follow up in the office and we will make a plan. EDMUNDO/KARTHIK Voice ID: [id number] Report ID: [id number]
[2021-04-28] MEDS ORDERED: ROSUVASTATIN 10 MG TAB PO SCH (21:00)
[2021-04-29] MEDS ORDERED: METOPROLOL XL 50 MG TAB PO SCH (09:00)
[2021-04-29] MEDS ORDERED: PANTOPRAZOLE 40MG TABLET PO SCH (09:00)
[2021-04-29] MEDS ORDERED: HOME MED 1 EA UNK (Hydrochlorothiazide [Hydrochlorothiazide] 12.5 MG Tablet) PO SCH (09:00)
[2021-04-29] MEDS ORDERED: GABAPENTIN 300 MG CAP PO SCH (09:00)
[2021-04-29] MEDS ORDERED: AMLODIPINE 5 MG TAB PO SCH (09:00)
[2021-04-29] MEDS ORDERED: HOME MED 1 EA UNK (Losartan Potassium [Losartan Potassium] 100 MG Tablet) PO SCH (09:00)
== END 2021-04-28 15:30 | disposition home or self-care (01) ==
LOC: OR 11:35
PROVIDERS: ATTEND Obstetrics & Gynecology
PROC: 0UDB7ZX Extraction of Endometrium, Via Natural or Artificial Opening, Diagnostic (ICD-10-PCS; 2021-04-28)
PROC: 0UBC8ZX Excision of Cervix, Via Natural or Artificial Opening Endoscopic, Diagnostic (ICD-10-PCS; principal; 2021-04-28 12:30)
DX: N95.0 Postmenopausal bleeding (principal); N88.9 Noninflammatory disorder of cervix uteri, unspecified; Z86.73 Personal history of transient ischemic attack (TIA), and cerebral infarction without residual deficits; Z79.01 Long term (current) use of anticoagulants; Z12.4 Encounter for screening for malignant neoplasm of cervix; Z20.822 Contact with and (suspected) exposure to COVID-19
CPT/HCPCS: 57500; 58100; 93005; 88164; 88305; U0003; J2704 ×2; J3010; J7120; J0690; J2250

== ENCOUNTER 2022-06-16 15:48 | Observation (INO) | payer OTHER ==
--- OUTSIDE RECORDS SUMMARY | 2022-06-16 15:57 | XMS REPORT | Continuity of Care Document ---
:1940 Author Organization [facility] t Address [address] [place] [address] Care Team Providers Name Role Phone Erica Cordova Primary Care Physician Erica Cordova Attending Clinician Unavailable DEVANTE VILLELA Attending Clinician Unavailable Doreen Attending Clinician Unavailable Devante Villela MD Attending Clinician Only, [facility] Test Attending Clinician Unavailable Pob, [facility] Main Attending Clinician Unavailable Doctor Unassigned, [place] Attending Clinician Unavailable DWIGHT SPIVEY Attending Clinician Unavailable Wing Beasley Attending Clinician Wing LEE Attending Clinician Unavailable Sam Knox Attending Clinician TUYET MONCADA Attending Clinician Unavailable MD TUYET MONCADA Attending Clinician Unavailable Agatha Rios MD Attending Clinician AGATHA RIOS Attending Clinician Unavailable DEVANTE VILLELA Admitting Clinician Unavailable Doreen Admitting Clinician Unavailable Devante Villela MD Admitting Clinician MIRIAN KEITA Admitting Clinician Unavailable MD MIRIAN KEITA Admitting Clinician Unavailable Payers Payer Name Policy Type Policy Number Effective Date Expiration Date Rox molina [employer] MEDICARE [id number] 2019 00:00:00 [employer] MEDICARE C1 [id number] 2019 Common Sp jose 00:00:00 [facility] MEDICARE C1 [id number] 2019 Common Sp jose 00:00:00 [facility] [employer] MEDICARE C1 [id number] 2019 Common Sp jose 00:00:00 [facility] MEDICARE [id number] 2019 Common Sp jose 00:00:00 [facility] Problems Condition Condition Condition Status Onset Resolution Last Treating Co mments Source Name Details Category Date Date Treatment Clinician Date Slurred Slurred Disease Active Methodi speech speech 01-22 st 00:00: Hospita 00 l TIA TIA Disease Active Methodi (transient (transient 01-22 st ischemic ischemic 00:00: Hospit a attack) attack) 00 l No known No known Disease Unive rs active active ity of problems problems [facility] [id number] Sciatica Problem Commo n of right [facility] side [facility] Allergic Allergic Problem Commo n rhinitis rhinitis [facility] Hypertensi Hypertensi Problem C ommon on on [facility] Insomnia Insomnia, Problem Comm on unspecifie Spirit d type [facility] Hyperlipid Hyperlipid Problem C ommon emia emia [facility] Heel pain Heel pain Problem Com mon [facility] Otalgia of Otalgia of Problem C ommon left ear left ear [facility] Gastroesop Gastroesop Problem C ommon hageal hageal [facility] reflux reflux [facility], [facility] not Center specified Seasonal Seasonal Problem Commo n allergy allergies [facility] [id number] Varicose Problem Commo n veins of [facility] lower [facility] with Medical pain Center [id number] Acute Problem Common non-recurr Spirit ent - [facility] maxillary St sinusitis [facility] [id number] Obesity, Problem Comm on morbid, Spirit BMI - [facility] 40.0-49.9 [facility] [id number] Encounter Problem Com mon for Spirit general - [facility] adult [facility] examinatio Medica l n with Center abnormal findings Muscle Muscle Problem Common cramps cramps [facility] [id number] Benign Problem Common essential Spirit tremor - [facility] [id number] Primary Problem Common insomnia [facility] [id number] Anxiety Problem Common Spirit [facility] [id number] Primary Problem Comm on osteoarthr Spirit itis of - [facility] right hip [facility] [id number] Impacted Problem Com mon [id number] cerumen of Spirit both ears - [facility] [id number] Primary Problem Comm on osteoarthr Spirit itis of - [facility] right knee [facility] [id number] Seasonal Problem Commo n allergic Spirit rhinitis - [facility] due to [facility] [id number] Somnolence Problem C ommon 00 , daytime [facility] [id number] Chronic Problem Common fatigue [facility] [id number] Arthritis Problem Co mmon [id number] of knee, [facility] right [facility] Allergies, Adverse Reactions, Alerts Allergy Allergy Status Severity Reaction(s) Onset Inactive Treating Comm ents Source Name Type Date Date Clinician Codeine Propensi Active Headache 0 Metho di ty to 01-22 adverse 00:00: Hospita reaction 00 l s to drug CODEINE DRUG Active Other-Cmnt 0 Unive rs INGREDI 01-20 ity of 00:00: [place] 00 Medical Branch Codeine Propensi Active Other - See 0 headache Univers ty to comments 01-20 ity of adverse 00:00: [place] reaction 00 Medical s Branch codeine codeine Active headaches Commo n Spirit - [facility] Family History Family Member Diagnosis Comments Start Date Stop Date Source Natural [facility] Social History Social Habit Start Date Stop Date Quantity Comments Source Exposure to Not sure University of SARS-CoV-2 [place] Medical (event) Branch History of Common Spirit - Tobacco Use [facility] History [facility] Alcohol Std Drinks History [facility] Alcohol Binge Tobacco use and 2020-10-07 2020-10-07 Never used Universit y of exposure 00:00:00 00:00:00 [facility] Alcohol intake 2020-03-20 2020-03-20 Lifetime [facility] 00:00:00 00:00:00 non-drinker (finding) History SDWA 2020-02-26 2020-02-26 [facility] Frequency 00:00:00 00:00:00 Sex Ass[birth year] [facility] 00:00:00 00:00:00 Smoking Status Start Date Stop Date Source Never Smoker Common [facility] - [facility] Unknown if ever smoked [facility] Medications Ordered Filled Start Stop Current Ordering Indication Dosage Frequency Signature Comments Components Source Medication Medication Date Date Medication? Clinician (SIG) Name Name Deejay Villalba No 40mg Common (Triamcinol (Triamcinol 7-26 S pirit one) one) 00:00: - [facility] Bupivicaine Bupivicaine 0 No 2.5mg Common Hackberry Hackberry 7-26 Spirit 00:00: - [facility] Deejay Villalba No 40mg Common (Triamcinol (Triamcinol 7-26 S pirit one) one) 00:00: - [facility] Bupivicaine Bupivicaine 2021-0 No 2.5mg Common Hackberry Hackberry 7-26 Spirit 00:00: - [facility] Deejay Villalba 0 No 40mg Common (Triamcinol (Triamcinol 7-26 S pirit one) one) 00:00: - [facility] Bupivicaine Bupivicaine 2021-0 No 2.5mg Common Hackberry Hackberry 7-26 Spirit 00:00: - [facility] Deejay Villalba 0 No 40mg Common (Triamcinol (Triamcinol 7-26 S pirit one) one) 00:00: - [facility] Bupivicaine Bupivicaine No 2.5mg Common Hackberry Hackberry 7-26 Spirit 00:00: - [facility] 00 [facility] clopidogreL 2020-05 Yes TAKE 1 Meth kaushik (PLAVIX) 75 2-02 TABLET(75 st mg tablet 00:00: MG) BY Hospit a 00 MOUTH l DAILY Bupivicaine Bupivicaine 2020-05 No 2.5mg Common Hackberry Hackberry 1-24 Spirit 00:00: - [facility] Kenalog Kenalog 2020-05 No 40mg Common (Triamcinol (Triamcinol 1-24 S pirit one) one) 00:00: - [facility] 00 [facility] Bupivicaine Bupivicaine 2020-05 No 2.5mg Common Hackberry Hackberry 1-24 Spirit 00:00: - [facility] Kenalog Kenalog 2020-05 No 40mg Common (Triamcinol (Triamcinol 1-24 S pirit one) one) 00:00: - [facility] Bupivicaine Bupivicaine 2020-05 No 2.5mg Common Hackberry Hackberry 1-24 Spirit 00:00: - [facility] 00 [facility] Kenalog Kenalog 2020-05 No 40mg Common (Triamcinol (Triamcinol 1-24 S pirit one) one) 00:00: - [facility] 00 [facility] Bupivicaine Bupivicaine 2020-05 No 2.5mg Common Hackberry Hackberry 1-24 Spirit 00:00: - [facility] Kenalog Kenalog 2020-05 No 40mg Common (Triamcinol (Triamcinol 1-24 S pirit one) one) 00:00: - [facility] 00 [facility] Bupivicaine Bupivicaine 2020-05 No 2.5mg Common Hackberry Hackberry 1-24 Spirit 00:00: - [facility] 00 [facility] Kenalog Kenalog 2020-05 No 40mg Common (Triamcinol (Triamcinol 1-24 S pirit one) one) 00:00: - [facility] 00 [facility] Bupivicaine Bupivicaine 2020-05 No 2.5mg Common Hackberry Hackberry 1-24 Spirit 00:00: - [facility] 00 [facility] Kenalog Kenalog 2020-05 No 40mg Common (Triamcinol (Triamcinol 1-24 S pirit one) one) 00:00: - [facility] Bupivicaine Bupivicaine 2020-05 No 2.5mg Common Hackberry Hackberry 1-24 Spirit 00:00: - [facility] Deejay Gonzalezalog 2020-05 No 40mg Common (Triamcinol (Triamcinol 1-24 S pirit one) one) 00:00: - [facility] 00 [facility] atorvastati Yes 80mg Take 80 mg Univers [...] by mouth ity of tablet 17:45: at [place] [address] bedtime. Medical Branch amLODIPine Yes 5mg Take 5 mg Un jana 5 mg tablet 5-19 by mouth ity of 17:45: daily. [place] [address] Medical Branch hydroCHLORO 0 Yes 25mg Take 25 mg Univers thiazide 25 5-19 by mouth ity of mg tablet 17:45: daily. [place] [address] Medical Branch LAT[address] Yes Place in Un jana OPHTHALMIC 5-19 both eyes ity of 17:45: at [place] [address] bedtime. Medical Branch carboxymeth Yes Place in Un jana ylcellulose 5-19 both eyes ity of sodium 17:45: at bedtime [place] (REFRESH 47 as needed Medica l OPHTHALMIC) for Other. Br anch atorvastati Yes 80mg Take 80 mg Univers n 80 mg 5-19 by mouth ity of tablet 17:45: at [place] [address] bedtime. Medical Branch losartan Yes 100mg Take 100 Univ ers 100 mg 5-19 mg by ity of tablet 17:45: mouth [place] 47 daily. Medical Branch clopidogreL Yes 75mg Take 75 mg Univers 75 mg 5-19 by mouth ity of tablet 17:45: daily. [place] [address] Medical Branch metoprolol Yes 50mg Take 50 mg U nivers succinate 5-19 by mouth ity of XL 50 mg 24 17:45: daily. [place] tablet 47 Medical Branch aspirin [...] tablet by ity of ORAL) 17:45: mouth [place] 47 daily. Medical Branch gabapentin Yes 300mg Take 300 Un jana ER 300 mg 5-19 mg by ity of tablet, 17:45: mouth [place] extended 47 daily. Medical release 24 Branch hr rosuvastati Yes 10mg Take 10 mg Univers n 10 mg 5-19 by mouth ity of tablet 17:45: at [place] [address] bedtime. Medical Branch amLODIPine Yes 5mg Take 5 mg Un jana 5 mg tablet 5-19 by mouth ity of 17:45: daily. [place] [address] Medical Branch hydroCHLORO Yes 25mg Take 25 mg Univers thiazide 25 5-19 by mouth ity of mg tablet 17:45: daily. [place] [address] Medical Branch LAT[address]OST Yes Place in Un jana OPHTHALMIC 5-19 both eyes ity of 17:45: at [place] [address] bedtime. Medical Branch carboxymeth Yes Place in Un jana ylcellulose 5-19 both eyes ity of sodium 17:45: at bedtime [place] (REFRESH 47 as needed Medica l OPHTHALMIC) for Other. Br anch water for Yes PRN, Univers irrigation -19 Starting ity o f irrigation 16:17: Tue [place] solution 00 10/08/20 at Medic al 1117, [place] Until Discontinu ed, Routine, Intra-op water for 2020- No PRN, Univers irrigation - 05-19 Starting ity of irrigation 16:17: 19:45 [facility] solution 00 :47 10/08/20 at Medic al 1117, Branch Until Tue10/08/20 at 1445, Routine, Intra-op sodium 0 Yes PRN, Univers chloride -19 Starting ity of (NS) 16:16: Tue [place] injection 00 10/08/20 at Medi giovanna 1116, [place] Until Discontinu ed, Routine, Intra-op neomycin-po 0 Yes PRN, Univer s lymyxin-dex -19 Starting ity of amethasone 16:16: Tue [place] (MAXITROL) 00 10/08/20 at Med ical 3.5 1116, [place] mg/g-10,000 Until unit/g-0.1 Discontinu % ed, ophthalmic Routine, ointment Intra-op Hyaluronida Yes PRN, Univer s se, Human 5- Starting ity of Recomb. 16:16: Tue (HYLENEX) 00 10/08/20 at [facility] injection 1116, Branch Until Discontinu ed, Routine, Intra-op sodium 2020- No PRN, Univers chloride 10-08 Starting ity of (NS) 16:16: 19:45 Tue [place] injection 00 :47 10/08/20 at [facility] 1116, Branch Until Tue10/08/20 at 1445, Routine, Intra-op neomycin-po 2020- No PRN, Unive rs lymyxin-dex 10-08 Starting ity of amethasone 16:16: 19:45 Tue [place] (MAXITROL) 00 :47 10/08/20 at [facility] ical 3.5 1116, Branch mg/g-10,000 Until Tue unit/g-0.1 10/08/20 at % 1445, ophthalmic Routine, ointment Intra-op Hyaluronida 2020- No PRN, Unive rs se, Human 10-08 Starting ity o f Recomb. 16:16: 19:45 [facility] (HYLENEX) 00 :47 10/08/20 at [facility] injection 1116, Branch Until Tue10/08/20 at 1445, Routine, Intra-op eye block Yes PRN, Univers syringe 11 - Starting ity o f mL 16:01: Tue [place] 00 10/08/20 at [facility] 1101, Branch Until Discontinu ed, Intra-op EPINEPHrine Yes PRN, Univer s 1:1,000 (1 10-08 Starting ity o f mg/mL) 16:01: Tue [place] (ADRENALIN) 00 10/08/20 at [place] d[place] injection 1101, Branch Until Discontinu ed, Routine, Intra-op eye block 2020- No PRN, Univers syringe 11 10-08 Starting ity of mL 16:01: 19:45 [facility] 00 :47 10/08/20 at [facility] 1101, Branch Until Tue10/08/20 at 1445, Intra-op EPINEPHrine 2020- No PRN, Unive rs 1:1,000 (1 10-08 Starting ity of mg/mL) 16:01: 19:45 Wed [place] (ADRENALIN) 00 :47 10/08/20 at Oh dical injection 1101, Branch Until Tue10/08/20 at 1445, Routine, Intra-op DUOVISC 0 Yes PRN, Univers (DUOVISC 10-08 Starting ity of VISCO 16:00: Tue [place] ELASTIC) 3 00 10/08/20 at [facility] ical %-4 %(0.5 1100, Branch mL) 1 % Until (0.55 mL) Discontinu intraocular ed, injection Routine, Intra-op dexamethaso Yes PRN, Univer s ne 10-08 Starting ity of (DECADRON 16:00: Tue [place] PHOSPHATE) 00 10/08/20 at Med ical injection 1100, Branch Until Discontinu ed, Routine, Intra-op ceFAZolin Yes PRN, Univers (ANCEF) 10-08 Starting ity of injection 16:00: Tue [place] 00 10/08/20 at [facility] 1100, Branch Until Discontinu ed, KELECHI, Intra-op DUOVISC 2020- No PRN, Univers (DUOVISC 10-08 Starting ity of VISCO 16:00: 19:45 [facility] ELASTIC) 3 00 :47 10/08/20 at [facility] ical %-4 %(0.5 1100, Branch mL) 1 % Until Wed (0.55 mL) 10/08/20 at intraocular 1445, injection Routine, Intra-op dexamethaso 2020- No PRN, Unive rs ne 10-08 Starting ity of (DECADRON 16:00: 19:45 Wed [place] PHOSPHATE) 00 :47 10/08/20 at Med ical injection 1100, Branch Until Tue10/08/20 at 1445, Routine, Intra-op ceFAZolin 2020- No PRN, Univers (ANCEF) 10-08 Starting ity of injection 16:00: 19:45 Wed [place] 00 :47 10/08/20 at Medical 1100, Branch Until Tue10/08/20 at 1445, KELECHI, Intra-op carbachoL Yes PRN, Univers (MIOSTAT) 10-08 Starting ity of 0.01 % 15:57: Wed [place] intraocular 00 10/08/20 at [place] dical injection 1057, Branch Until Discontinu ed, Routine, Intra-op balanced Yes PRN, Univers salt irrig 10-08 Starting ity o f soln comb1 15:57: Wed [place] (BSS PLUS) 00 10/08/20 at [facility] ica ophthalmic 1057, Branch solution Until 500 mL bag Discontinu ed, Routine, Intra-op carbachoL 2020- No PRN, Univers (MIOSTAT) 10-08 Starting ity o f 0.01 % 15:57: 19:45 Wed [place] intraocular 00 :47 10/08/20 at [place] dical injection 1057, Branch Until 10/08/20 at 1445, Routine, Intra-op balanced 2020- No PRN, Univers salt irrig 10-08 Starting ity of soln comb1 15:57: 19:45 Wed [place] (BSS PLUS) 00 :47 10/08/20 at [facility] ica ophthalmic 1057, Branch solution Until Wed 500 mL bag 10/08/20 at 1445, Routine, Intra-op mydriatic 2020- No .5mL 0.5 mL, Univ ers #5 10-08 Right Eye, ity of ophthalmic 13:45: 13:44 ONCE, 1 [place] solution 00 :00 dose, [facility] Medica l 0.5 mL 10/08/20 at [place] syringe 0845, Routine, DSU Pre-op lactated 2020- No 1000mL at 42 Unive rs ringers IV 10-08 mL/hr, ity of infusion 13:45: 13:42 1,000 [...] Branch syringe 0845, Routine, DSU Pre-op lactated 2020-0 2020- No 1000mL at 42 Unive rs ringers IV 5- 05-19 mL/hr, ity of infusion 13:45: 13:42 1,000 mL, [place] 1,000 mL 00 :00 IV Medical Infusion, Branch ONCE, 1 dose, 10/08/20 at 0845, Routine, DSU Pre-op aspirin 81 0 Yes 325mg Take 325 Un jana mg chewable 5-05 mg by ity of tablet 17:12: mouth [place] [address] daily. Medical Branch atorvastati 0 Yes 80mg Take 80 mg Univers n 80 mg 5-05 by mouth ity of tablet 17:12: at [place] [address] bedtime. Medical Branch atorvastati 0 Yes 80mg Take 80 mg Univers n 80 mg 5-05 by mouth ity of tablet 17:12: at [place] [address] bedtime. Medical Branch losartan 25 0 Yes 25mg Take 25 mg Univers mg tablet 5-05 by mouth ity of 17:12: every [place] [address] evening. Medical Branch clopidogreL 0 Yes 75mg Take 75 mg Univers 75 mg 5-05 by mouth ity of tablet 17:12: daily. [place] [address] Medical Branch metoprolol 0 Yes 50mg Take 50 mg U nivers succinate 5-05 by mouth ity of XL 50 mg 24 17:12: [place]. [place] hr tablet 49 Medical Branch aspirin 81 0 Yes 325mg Take 325 Un jana mg chewable 5-05 mg by ity of tablet 17:12: mouth [place] [address] daily. Medical Branch atorvastati 0 Yes 80mg Take 80 mg Univers n 80 mg 5-05 by mouth ity of tablet 17:12: at [place] [address] bedtime. Medical Branch losartan 25 0 Yes 25mg Take 25 mg Univers mg tablet 5-05 by mouth ity of 17:12: every [place] [address] evening. Medical Branch clopidogreL 2020-0 Yes 75mg Take 75 mg Univers 75 mg 5-05 by mouth ity of tablet 17:12: daily. [place] [address] Medical Branch metoprolol 2020-0 Yes 50mg Take 50 mg U nivers succinate 5-05 by mouth ity of XL 50 mg 24 17:12: daily. [place] hr tablet 49 Medical Branch aspirin 81 0 Yes 325mg Take 325 Un jana mg chewable 5-05 mg by ity of tablet 17:12: mouth [place] [address] daily. Medical Branch atorvastati 0 Yes 80mg Take 80 mg Univers n 80 mg 5-05 by mouth ity of tablet 17:12: at [place] [address] bedtime. Medical Branch losartan 25 0 Yes 25mg Take 25 mg Univers mg tablet 5-05 by mouth ity of 17:12: every [place] [address] evening. Medical Branch clopidogreL 0 Yes 75mg Take 75 mg Univers 75 mg 5-05 by mouth ity of tablet 17:12: daily. [place] [address] Medical Branch metoprolol 0 Yes 50mg Take 50 mg U nivers succinate 5-05 by mouth ity of XL 50 mg 24 17:12: daily. [place] hr tablet 49 Medical Branch aspirin 81 0 Yes 325mg Take 325 Un jana mg chewable 5-05 mg by ity of tablet 17:12: mouth [place] [address] daily. Medical Branch atorvastati 0 Yes 80mg Take 80 mg Univers n 80 mg 5-05 by mouth ity of tablet 17:12: at [place] [address] bedtime. Medical Branch losartan 25 0 Yes 25mg Take 25 mg Univers mg tablet 5-05 by mouth ity of 17:12: every [place] [address] evening. Medical Branch clopidogreL 0 Yes 75mg Take 75 mg Univers 75 mg 5-05 by mouth ity of tablet 17:12: daily. [place] [address] Medical Branch metoprolol 0 Yes 50mg Take 50 mg U nivers succinate 5-05 by mouth ity of XL 50 mg 24 17:12: daily. [place] hr tablet 49 Medical Branch aspirin 81 0 Yes 325mg Take 325 Un jana mg chewable 5-05 mg by ity of tablet 17:12: mouth [place] [address] daily. Medical Branch losartan 25 0 Yes 25mg Take 25 mg Univers mg tablet 5-05 by mouth ity of 17:12: every [place] [address] evening. Medical Branch clopidogreL 0 Yes 75mg Take 75 mg Univers 75 mg 5-05 by mouth ity of tablet 17:12: daily. [place] [address] Medical Branch metoprolol 0 Yes 50mg Take 50 mg U nivers succinate 5-05 by mouth ity of XL 50 mg 24 17:12: [place]. [place] tablet 49 Medical Branch water for Yes PRN, Univers irrigation 5-05 Starting ity o f irrigation 15:50: 09/24/20 [place] solution 00 at 1050, Medical Until Branch Discontinu ed, Routine, Intra-op water for 2020- No PRN, Univers irrigation 5- 05-05 Starting ity of irrigation 15:50: 19:12 09/24/20 [place] solution 00 :50 at 1050, Medical Until Tue Branch 09/24/20 at 1412, Routine, Intra-op water for 2020- No PRN, Univers irrigation 5- 05-05 Starting ity of irrigation 15:50: 19:12 09/24/20 [place] solution 00 :50 at 1050, Medical Until Tue Branch 09/24/20 at 1412, Routine, Intra-op sodium Yes PRN, Univers chloride 5-05 Starting ity of (NS) 15:49: Tue09/24/20 [place] injection 00 at 1049, Medica l Until Branch Discontinu ed, Routine, Intra-op neomycin-po Yes PRN, Univer s lymyxin-dex 5-05 Starting ity of amethasone 15:49: Tue09/24/20 [place] (MAXITROL) 00 at 1049, Medic al 3.5 Until Branch mg/g-10,000 Discontinu unit/g-0.1 ed, % Routine, ophthalmic Intra-op ointment Hyaluronida Yes PRN, Univer s se, Human 5-05 Starting ity of Recomb. 15:49: Tue09/24/20 [place] (HYLENEX) 00 at 1049, Medica l injection Until Branch Discontinu ed, Routine, Intra-op sodium 2020- No PRN, Univers chloride 5-05 05-05 Starting ity of (NS) 15:49: 19:12 [facility] 09/24/20 [place] injection 00 :50 at 1049, Medica l Until Wed Branch 09/24/20 at 1412, Routine, Intra-op neomycin-po 2020- No PRN, Unive rs lymyxin-dex 5-05 05- Starting ity of amethasone 15:49: 19:12 09/24/20 [place] (MAXITROL) 00 :50 at 1049, Medic al 3.5 Until Wed Branch mg/g-10,000 09/24/20 at unit/g-0.1 1412, % Routine, ophthalmic Intra-op ointment Hyaluronida 2020- No PRN, [facility], Human 09-24- Starting ity o f Recomb. 15:49: 19:12 09/24/20 [place] (HYLENEX) 00 :50 at 1049, Medica l injection Until Wed Branc h 09/24/20 at 1412, Routine, Intra-op sodium 2020- No PRN, Univers chloride 09-24- Starting ity of (NS) 15:49: 19:12 09/24/20 [place] injection 00 :50 at 1049, Medica l Until Wed Branch 09/24/20 at 1412, Routine, Intra-op neomycin-po 2020- No PRN, [facility] lymyxin-dex 09-24-05 Starting ity of amethasone 15:49: 19:12 09/24/20 [place] (MAXITROL) 00 :50 at 1049, Medic al 3.5 Until Tue Branch mg/g-10,000 09/24/20 at unit/g-0.1 1412, % Routine, ophthalmic Intra-op ointment Hyaluronida 2020- No PRN, [facility], Human 09-24- Starting ity o f Recomb. 15:49: 19:12 09/24/20 [place] (HYLENEX) 00 :50 at 1049, Medica l injection Until Wed Branc h 09/24/20 at 1412, Routine, Intra-op eye block Yes PRN, Univers syringe 05 Starting ity o f mL 15:48: 09/24/20 [place] 00 at 1048, Medical Until Branch Discontinu ed, Intra-op eye block 2020- No PRN, Univers syringe 11 - 05-05 Starting ity of mL 15:48: 19:12 09/24/20 [place] 00 :50 at 1048, Medical Until Wed Branch 09/24/20 at 1412, Intra-op eye block 2020- No PRN, Univers syringe 11 09-24 Starting ity of mL 15:48: 19:12 Tue09/24/20 [place] 00 :50 at 1048, Medical Until Wed Branch 09/24/20 at 1412, Intra-op EPINEPHrine Yes PRN, Univer s 1:1,000 (1 09-24 Starting ity o f mg/mL) 15:47: Tue09/24/20 [place] (ADRENALIN) 00 at 1047, Medi giovanna injection Until Branch Discontinu ed, Routine, Intra-op DUOVISC Yes PRN, Univers (DUOVISC 09-24 Starting ity of VISCO 15:47: Tue09/24/20 [place] ELASTIC) 3 00 at 1047, Medic al %-4 %(0.5 Until Branch mL) 1 % Discontinu (0.55 mL) ed, intraocular Routine, injection Intra-op dexamethaso Yes PRN, Univer s ne 09-24 Starting ity of (DECADRON 15:47: Tue09/24/20 [place] PHOSPHATE) 00 at 1047, Medic al injection Until Branch Discontinu ed, Routine, Intra-op ceFAZolin Yes PRN, Univers (ANCEF) 09-24 Starting ity of injection 15:47: Tue09/24/20 [place] 00 at 1047, Medical Until Branch Discontinu ed, KELECHI, Intra-op EPINEPHrine 2020- No PRN, Unive rs 1:1,000 (1 09-24 Starting ity of mg/mL) 15:47: 19:12 Tue09/24/20 [place] (ADRENALIN) 00 :50 at 1047, [...] [place] 00 :50 at 1047, Medical Until Tue Branch 09/24/20 at 1412, KELECHI, Intra-op EPINEPHrine 2020- No PRN, Unive rs 1:1,000 (1 09-24 Starting ity of mg/mL) 15:47: 19:12 Tue09/24/20 [place] (ADRENALIN) 00 :50 at 1047, Medi giovanna injection Until Tue Branc h 09/24/20 at 1412, Routine, Intra-op DUOVISC 2020- No PRN, Univers (DUOVISC 09-24 Starting ity of VISCO 15:47: 19:12 Tue09/24/20 [place] ELASTIC) 3 00 :50 at 1047, Medic al %-4 %(0.5 Until Tue Branc h mL) 1 % 09/24/20 at [...] KELECHI, Intra-op carbachoL Yes PRN, [facility] (MIOSTAT) 5-05 Starting ity of 0.01 % 15:46: 09/24/20 [place] intraocular 00 at 1046, Medi giovanna injection Until Branch Discontinu ed, Routine, Intra-op balanced Yes PRN, [facility] salt irrig 5-05 Starting ity o f soln comb1 15:46: 09/24/20 [place] (BSS PLUS) 00 at 1046, Medic al ophthalmic Until Branch solution Discontinu 500 mL bag ed, Routine, Intra-op carbachoL 2020- No PRN, [facility] (MIOSTAT) 09-24 05-05 Starting ity o f 0.01 % 15:46: 19:12 09/24/[place] intra[place] :50 at 1046, Medi giovanna injection Until Tue Branc h 09/24/20 at 1412, Routine, Intra-op balanced 2020- No PRN, [facility] salt irrig 09-24 05-05 Starting ity of soln comb1 15:46: 19:12 09/24/20 [place] (BSS PLUS) 00 :50 at 1046, Medic al ophthalmic Until Tue Bran ch solution 09/24/20 at 500 mL bag 1412, Routine, Intra-op carbachoL 2020- No PRN, [facility] (MIOSTAT) 09-24 05-05 Starting ity o f 0.01 % 15:46: 19:12 09/24/[place] intra[place] 00 :50 at 1046, Medi giovanna injection Until Tue Branc h 09/24/20 at [...] dose, 09/24/20 at 0900, Routine, DSU Pre-op aspirin 81 Yes 325mg Take 325 Un jana mg chewable 4-30 mg by ity of tablet 20:51: mouth [place] 43 daily. Medical Branch aspirin 2019-05 Yes TAKE 1 [facility] (ECOTRIN) 1-25 TABLET(325 st 325 MG 00:00: MG) BY [facility]osp[facility] enteric 00 MOUTH l coated DAILY tablet rosuvastati 2019-05 Yes 10mg QD Take 10 mg [facility] (CRESTOR) 0-[address] 10 mg 10:12: nightly. Hospita tablet 09 l hydroCHLORO 2019-05 Yes 25mg QD Take 25 mg [facility] thiazide 0-[address] (HYDRODIURI 10:06: daily. Hosp sari L) 25 MG 36 l tablet losartan 2019-05 Yes 100mg QD Take 100 Meth kaushik (COZAAR) 0-[address] 100 MG 10:02: mouth [facility]osp[facility] tablet 17 daily. l latanoprost 2019-05 Yes 1[drp] QD 1 drop [facility] (XALATAN) 0-[address] 0.005 % 10:02: Hospita ophthalmic 17 l solution Losartan Losartan Yes Na [place] 1 tablet Common Potassium Potassium 9-14 at night S pirit 00:00: - [facility] 00 [facility] Losartan Losartan 0 No QD Losartan Potassium Potassium 9-14 Potassium 50 MG 50 MG 00:00: 50 MG 00 Losartan Losartan 0 No QD Losartan Potassium Potassium 9-14 Potassium 50 MG 50 MG 00:00: 50 MG 00 Losartan Losartan 2019-0 No QD Losartan Potassium Potassium 9-14 Potassium 50 MG 50 MG 00:00: 50 MG 00 Losartan Losartan 0 No QD Losartan Potassium Potassium 9-14 Potassium 50 MG 50 MG 00:00: 50 MG 00 Losartan Losartan 2019-0 No QD Losartan Potassium Potassium 9-14 Potassium 50 MG 50 MG 00:00: 50 MG 00 Losartan Losartan 2019-0 No QD Losartan Potassium Potassium 9-14 Potassium 50 MG 50 MG 00:00: 50 MG 00 Losartan Losartan 2019-0 No QD Losartan Potassium Potassium 9-14 Potassium 50 MG 50 MG 00:00: 50 MG 00 Losartan Losartan 2019-0 No QD Losartan Potassium Potassium 9-14 Potassium 50 MG 50 MG 00:00: 50 MG 00 Losartan Losartan 2019-0 No QD Losartan Potassium Potassium 9-14 Potassium 50 MG 50 MG 00:00: 50 MG 00 Losartan Losartan 2019-0 No QD Losartan Potassium Potassium 9-14 Potassium 50 MG 50 MG 00:00: 50 MG 00 Losartan Losartan 2019-0 No QD Losartan Potassium Potassium 9-14 Potassium 50 MG 50 MG 00:00: 50 MG 00 Losartan Losartan 2019-0 No QD Losartan Potassium Potassium 9-14 Potassium 50 MG 50 MG 00:00: 50 MG 00 metoprolol 2019-0 2020- No 5mg 5 mg, Slow [facility] (LOPRESSOR) 02-01 IV Push, ity of injection 5 03:15: 02:10 [place]CE, 1 [place] 00 :00 dose, Fri Medical 02/01/20 at Branch 2215, KELECHI losartan 25 2020-0 Yes 25mg Take 25 mg [facility] mg tablet 9-04 by mouth ity of 16:18: every [place] 12 evening. Medical Branch clopidogreL 2020-0 Yes 75mg Take 75 mg [facility] 75 mg 9-04 by mouth ity of tablet 16:18: daily. [address] Branch metoprolol 2020-0 Yes 50mg Take 50 mg U nivers succinate 9-04 by mouth ity of XL 50 mg 24 16:18: [place]. [place] tablet 12 [facility] Branch aspirin 81 2020-0 Yes 81mg Take 81 mg U nivers mg chewable 9-04 by mouth ity of tablet 16:18: daily. [address] Branch losartan 25 2020-0 Yes 25mg Take 25 mg [facility] mg tablet 9-04 by mouth ity of 16:18: every [place] 12 evening. Medical Branch clopidogreL 2020-0 Yes 75mg Take 75 mg [facility] 75 mg 9-04 by mouth ity of tablet 16:18: daily. [address] metoprolol 2020-0 Yes 50mg Take 50 mg U nivers succinate 9-04 by mouth ity of XL 50 mg 24 16:18: [place]. [place] tablet [address] [place] [address] aspirin 81 2020-0 Yes 81mg Take 81 mg U nivers mg chewable 9-04 by mouth ity of tablet 16:18: daily. [address] losartan 25 2020-0 Yes 25mg Take 25 mg [facility] mg tablet 9-04 by mouth ity of 16:18: every [place] 12 evening. Medical Branch clopidogreL 2020-0 Yes 75mg Take 75 mg [facility] 75 mg 9-04 by mouth ity of tablet 16:18: daily. [address] metoprolol 2020-0 Yes 50mg Take 50 mg U nivers succinate 9-04 by mouth ity of XL 50 mg 24 16:18: daily. [place] hr tablet Medical [facility] losartan 25 2020-0 Yes 25mg Take 25 mg [facility] mg tablet 9-04 by mouth ity of 16:18: every [place] 12 evening. Medical Branch clopidogreL 2020-0 Yes 75mg Take 75 mg [facility] 75 mg 9-04 by mouth ity of tablet 16:18: daily. [place] [address] Medical Branch metoprolol 2020-0 Yes 50mg Take 50 mg U nivers succinate 9-04 by mouth ity of XL 50 mg 24 16:18: [place]. [place] hr tablet 12 [facility] aspirin 81 2020-0 Yes 81mg Take 81 mg U nivers mg chewable 9-04 by mouth ity of tablet 16:18: daily. [place] [address] Medical Branch losartan 25 2020-0 Yes 25mg Take 25 mg [facility] mg tablet 9-04 by mouth ity of 16:18: every [place] [address] evening. Medical Branch clopidogreL 2020-0 Yes 75mg Take 75 mg [facility] 75 mg 9-04 by mouth ity of tablet 16:18: daily. [place] [address] Medical Branch metoprolol 2020-0 Yes 50mg Take 50 mg U nivers succinate 9-04 by mouth ity of XL 50 mg 24 16:18: [place]. [place] hr tablet 12 [facility] aspirin 81 2020-0 Yes 81mg Take 81 mg U nivers mg chewable 9-04 by mouth ity of tablet 16:18: daily. [place] [address] Medical Branch atorvastati 2020-0 Yes 80mg Take 80 mg Univers n 80 mg 9-04 by mouth ity of tablet 16:18: at [place] [address] bedtime. Medical Branch atorvastati 2020-0 Yes 80mg Take 80 mg Univers n 80 mg 9-04 by mouth ity of tablet 16:18: at [place] [address] bedtime. Medical Branch atorvastati 2020-0 Yes 80mg Take 80 mg Univers n 80 mg 9-04 by mouth ity of tablet 16:18: at [place] [address] bedtime. Medical Branch atorvastati 2020-0 Yes 80mg Take 80 mg Univers n 80 mg 9-04 by mouth ity of tablet 16:18: at [place] [address] bedtime. Medical Branch atorvastati 2020-0 Yes 80mg Take 80 mg Univers n 80 mg 9-04 by mouth ity of tablet 16:18: at [place] [address] bedtime. Medical Branch Niacin 250 2020-0 Yes Muscle 1{tbl} Take 1 U nivers mg TbSR 9-04 cramps tablet by ity o f 00:00: mouth with [place] evening Medical meal. Branch Niacin 250 2020-0 Yes [id number] 1{tbl} Take 1 [facility] mg TbSR 9-04 tablet by ity of 00:00: mouth with [place] 00 evening Medical meal. Branch Niacin 250 Yes [id number] 1{tbl} Take 1 [facility] mg TbSR 9-04 tablet by ity of 00:00: mouth with [place] 00 evening Medical meal. Branch Niacin 250 Yes [id number] 1{tbl} Take 1 [facility] mg TbSR 9-04 tablet by ity of 00:00: mouth with [place] 00 evening Medical meal. Branch Niacin 250 Yes [id number] 1{tbl} Take 1 [facility] mg TbSR 9-04 tablet by ity of 00:00: mouth with [place] 00 evening Medical meal. Branch Niacin 250 Yes [id number] 1{tbl} Take 1 [facility] mg TbSR 9-04 tablet by ity of 00:00: mouth with [place] 00 evening Medical meal. Branch Niacin 250 Yes [id number] 1{tbl} Take 1 [facility] mg TbSR 9-04 tablet by ity of 00:00: mouth with [place] 00 evening Medical meal. Branch Niacin 250 Yes [id number] 1{tbl} Take 1 [facility] mg TbSR 9-04 tablet by ity of 00:00: mouth with [place] 00 evening Medical meal. Branch Niacin 250 Yes [id number] 1{tbl} Take 1 [facility] mg TbSR 9-04 tablet by ity of 00:00: mouth with [place] 00 evening Medical meal. Branch Niacin 250 Yes [id number] 1{tbl} Take 1 [facility] mg TbSR 9-04 tablet by ity of 00:00: mouth with [place] 00 evening Medical meal. Branch Niacin 250 Yes [id number] 1{tbl} Take 1 [facility] mg TbSR 9-04 tablet by ity of 00:00: mouth with [place] 00 evening Medical meal. Branch Niacin 250 Yes [id number] 1{tbl} Take 1 [facility] mg TbSR 9-04 tablet by ity of 00:00: mouth with [place] 00 evening Medical meal. Branch Losartan Losartan Yes Na [place] 1 tablet Common Potassium Potassium 01-22 Spiri t 00:00: - [facility] 00 [facility] Rosuvastati Rosuvastati No 1{table Rosuvastat n Calcium 5 n Calcium 5 01-22 t} in Calcium MG MG 00:00: 5 MG 00 Rosuvastati Rosuvastati 2020-0 No 1{table Rosuvastat n Calcium 5 n Calcium 5 9-02 t} in Calcium MG MG 00:00: 5 MG Rosuvastati Rosuvastati 2020-0 No 1{table Rosuvastat n Calcium 5 n Calcium 5 9-02 t} in Calcium MG MG 00:00: 5 MG Rosuvastati Rosuvastati 2020-0 No 1{table Rosuvastat n Calcium 5 n Calcium 5 9-02 t} in Calcium MG MG 00:00: 5 MG 00 Rosuvastati Rosuvastati 2020-0 No 1{table Rosuvastat n Calcium 5 n Calcium 5 9-02 t} in Calcium MG MG 00:00: 5 MG Rosuvastati Rosuvastati 2020-0 No 1{table Rosuvastat n Calcium 5 n Calcium 5 9-02 t} in Calcium MG MG 00:00: 5 MG Rosuvastati Rosuvastati 2020-0 No 1{table Rosuvastat n Calcium 5 n Calcium 5 9-02 t} in Calcium MG MG 00:00: 5 MG Rosuvastati Rosuvastati 2020-0 No 1{table Rosuvastat n Calcium 5 n Calcium 5 9-02 t} in Calcium MG MG 00:00: 5 MG Rosuvastati Rosuvastati 2020-0 No 1{table Rosuvastat n Calcium 5 n Calcium 5 9-02 t} in Calcium MG MG 00:00: 5 MG Rosuvastati Rosuvastati 2020-0 No 1{table Rosuvastat n Calcium 5 n Calcium 5 9-02 t} in Calcium MG MG 00:00: 5 MG Rosuvastati Rosuvastati 2020-0 No 1{table Rosuvastat n Calcium 5 n Calcium 5 9-02 t} in Calcium MG MG 00:00: 5 MG 00 Rosuvastati Rosuvastati 2020-0 No 1{table Rosuvastat n Calcium 5 n Calcium 5 9-02 t} in Calcium MG MG 00:00: 5 MG 00 metoprolol 2020-0 Yes 50mg QD Take 50 mg M [facility] succinate 6-[address] XL 00:00: daily. Hospita (TOPROL-XL) 00 l 50 mg 24 hr tablet Kenalog Kenalog 2017-05 No 40mg Common (Triamcinol (Triamcinol 1-19 S pirit one) one) 00:00: - [facility] 00 [facility] Deejay Villalba 2017-05 No 40mg Common (Triamcinol (Triamcinol 1-19 S pirit one) one) 00:00: - [facility] 00 [facility] Deejay Villalba 2017-05 No 40mg Common (Triamcinol (Triamcinol 1-19 S pirit one) one) 00:00: - [facility] 00 [facility] Deejay Villalba 2017-05 No 40mg Common (Triamcinol (Triamcinol 1-19 S pirit one) one) 00:00: - [facility] 00 [facility] Deejay Villalba 2017-05 No 40mg Common (Triamcinol (Triamcinol 1-19 S pirit one) one) 00:00: - [facility] 00 [facility] Deejay Villalba 2017-05 No 40mg Common (Triamcinol (Triamcinol 1-19 S pirit one) one) 00:00: - [facility] 00 [facility] Deejay Villalba 2017-05 No 40mg Common (Triamcinol (Triamcinol 1-19 S pirit one) one) 00:00: - [facility] 00 [facility] Metoprolol Metoprolol Yes Na [place] 1 tablet Common Succinate Succinate Spiri t ER ER [facility] Metoprolol Metoprolol Yes Na [place] take 1 Common Succinate Succinate tablet Spi rit ER ER once daily - [facility] hydroCHLORO hydroCHLORO No hydroCHLOR thiazide thiazide Othiazide Cetirizine Cetirizine No 1{table QD Cetirizine HCl 10 MG HCl 10 MG t} HCl 10 MG Aspirin Aspirin No Aspirin prednisoLON prednisoLON No prednisoLO E Acetate E Acetate NE Acetate Metoprolol Metoprolol No 1{table QD Metoprolol Succinate Succinate t} Succinate ER 50 mg ER 50 mg ER 50 mg clopidogrel clopidogrel No clopidogre l Ofloxacin Ofloxacin No Ofloxacin Pantoprazol Pantoprazol No Pantoprazo e Sodium e Sodium le Sodium Latanoprost Latanoprost No 1{drop_ QD Latanopros 0.005 % 0.005 % into_af t 0.005 % fected_ eye_in_ the_eve madi} Citalopram Citalopram No Citalopram Hydrobromid Hydrobromid Hydrobromi e 10 MG e 10 MG de 10 MG Omeprazole Omeprazole No 1{capsu QD Omeprazole 40 MG 40 MG le} 40 MG Losartan Losartan No Losartan Potassium Potassium Potassium 50 MG 50 MG 50 MG Flonase 50 Flonase 50 No 2{spray QD Flonase 50 MCG/DOSE MCG/DOSE _in_eac MCG/DOSE h_nostr il} amLODIPine amLODIPine No amLODIPine Besylate Besylate Besylate Gabapentin Gabapentin No Gabapentin Flonase 50 Flonase 50 No 2{spray QD Flonase 50 MCG/ACT MCG/ACT _in_eac MCG/ACT h_nostr il} hydroCHLORO hydroCHLORO No hydroCHLOR thiazide thiazide Othiazide Cetirizine Cetirizine No 1{table QD Cetirizine HCl 10 MG HCl 10 MG t} HCl 10 MG Aspirin Aspirin No Aspirin prednisoLON prednisoLON No prednisoLO E Acetate E Acetate NE Acetate amLODIPine amLODIPine No amLODIPine Besylate Besylate Besylate Gabapentin Gabapentin No Gabapentin Latanoprost Latanoprost No 1{drop_ QD Latanopros 0.005 % 0.005 % into_af t 0.005 % fected_ eye_in_ the_eve madi} Flonase 50 Flonase 50 No 2{spray QD Flonase 50 MCG/DOSE MCG/DOSE _in_eac MCG/DOSE h_nostr il} Pantoprazol Pantoprazol No Pantoprazo e Sodium e Sodium le Sodium clopidogrel clopidogrel No clopidogre l Citalopram Citalopram No Citalopram Hydrobromid Hydrobromid Hydrobromi e 10 MG e 10 MG de 10 MG Aspirin Aspirin No Aspirin hydroCHLORO hydroCHLORO No hydroCHLOR thiazide thiazide Othiazide Cetirizine Cetirizine No 1{table QD Cetirizine HCl 10 MG HCl 10 MG t} HCl 10 MG Losartan Losartan No Losartan Potassium Potassium Potassium 50 MG 50 MG 50 MG Flonase 50 Flonase 50 No 2{spray QD Flonase 50 MCG/ACT MCG/ACT _in_eac MCG/ACT h_nostr il} Ofloxacin Ofloxacin No Ofloxacin Omeprazole Omeprazole No 1{capsu QD Omeprazole 40 MG 40 MG le} 40 MG Metoprolol Metoprolol No 1{table QD Metoprolol Succinate Succinate t} Succinate ER 50 mg ER 50 mg ER 50 mg prednisoLON prednisoLON No prednisoLO E Acetate E Acetate NE Acetate prednisoLON prednisoLON No prednisoLO E Acetate E Acetate NE Acetate Flonase 50 Flonase 50 No 2{spray QD Flonase 50 MCG/ACT MCG/ACT _in_eac MCG/ACT h_nostr il} Omeprazole Omeprazole No 1{capsu QD Omeprazole 40 MG 40 MG le} 40 MG Metoprolol Metoprolol No 1{table QD Metoprolol Succinate Succinate t} Succinate ER 50 mg ER 50 mg ER 50 mg Citalopram Citalopram No Citalopram Hydrobromid Hydrobromid Hydrobromi e 10 MG e 10 MG de 10 MG Cetirizine Cetirizine No 1{table QD Cetirizine HCl 10 MG HCl 10 MG t} HCl 10 MG clopidogrel clopidogrel No clopidogre l Gabapentin Gabapentin No Gabapentin Aspirin Aspirin No Aspirin Pantoprazol Pantoprazol No Pantoprazo e Sodium e Sodium le Sodium Flonase 50 Flonase 50 No 2{spray QD Flonase 50 MCG/DOSE MCG/DOSE _in_eac MCG/DOSE h_nostr il} Latanoprost Latanoprost No 1{drop_ QD Latanopros 0.005 % 0.005 % into_af t 0.005 % fected_ eye_in_ the_eve madi} amLODIPine amLODIPine No amLODIPine Besylate Besylate Besylate Ofloxacin Ofloxacin No Ofloxacin Losartan Losartan No Losartan Potassium Potassium Potassium 50 MG 50 MG 50 MG hydroCHLORO hydroCHLORO No hydroCHLOR thiazide thiazide Othiazide Omeprazole Omeprazole No 1{capsu QD Omeprazole 40 MG 40 MG le} 40 MG Metoprolol Metoprolol No 1{table QD Metoprolol Succinate Succinate t} Succinate ER 50 mg ER 50 mg ER 50 mg Pantoprazol Pantoprazol No Pantoprazo e Sodium e Sodium le Sodium amLODIPine amLODIPine No amLODIPine Besylate Besylate Besylate Latanoprost Latanoprost No 1{drop_ QD Latanopros 0.005 % 0.005 % into_af t 0.005 % fected_ eye_in_ the_eve madi} Losartan Losartan No Losartan Potassium Potassium Potassium 50 MG 50 MG 50 MG Cetirizine Cetirizine No 1{table QD Cetirizine HCl 10 MG HCl 10 MG t} HCl 10 MG Citalopram Citalopram No Citalopram Hydrobromid Hydrobromid Hydrobromi e 10 MG e 10 MG de 10 MG Gabapentin Gabapentin No Gabapentin Ofloxacin Ofloxacin No Ofloxacin Flonase 50 Flonase 50 No 2{spray QD Flonase 50 MCG/ACT MCG/ACT _in_eac MCG/ACT h_nostr il} Flonase 50 Flonase 50 No 2{spray QD Flonase 50 MCG/DOSE MCG/DOSE _in_eac MCG/DOSE h_nostr il} prednisoLON prednisoLON No prednisoLO E Acetate E Acetate NE Acetate methylPREDN methylPREDN No methylPRED ISolone 4 ISolone 4 NISolone 4 MG MG MG clopidogrel clopidogrel No clopidogre l hydroCHLORO hydroCHLORO No hydroCHLOR thiazide thiazide Othiazide Aspirin Aspirin No Aspirin Omeprazole Omeprazole No 1{capsu QD Omeprazole 40 MG 40 MG le} 40 MG Metoprolol Metoprolol No 1{table QD Metoprolol Succinate Succinate t} Succinate ER 50 mg ER 50 mg ER 50 mg Pantoprazol Pantoprazol No Pantoprazo e Sodium e Sodium le Sodium amLODIPine amLODIPine No amLODIPine Besylate Besylate Besylate Latanoprost Latanoprost No 1{drop_ QD Latanopros 0.005 % 0.005 % into_af t 0.005 % fected_ eye_in_ the_eve madi} Losartan Losartan No Losartan Potassium Potassium Potassium 50 MG 50 MG 50 MG Cetirizine Cetirizine No 1{table QD Cetirizine HCl 10 MG HCl 10 MG t} HCl 10 MG Citalopram Citalopram No Citalopram Hydrobromid Hydrobromid Hydrobromi e 10 MG e 10 MG de 10 MG Gabapentin Gabapentin No Gabapentin Ofloxacin Ofloxacin No Ofloxacin Flonase 50 Flonase 50 No 2{spray QD Flonase 50 MCG/ACT MCG/ACT _in_eac MCG/ACT h_nostr il} Flonase 50 Flonase 50 No 2{spray QD Flonase 50 MCG/DOSE MCG/DOSE _in_eac MCG/DOSE h_nostr il} prednisoLON prednisoLON No prednisoLO E Acetate E Acetate NE Acetate methylPREDN methylPREDN No methylPRED ISolone 4 ISolone 4 NISolone 4 MG MG MG clopidogrel clopidogrel No clopidogre l hydroCHLORO hydroCHLORO No hydroCHLOR thiazide thiazide Othiazide Aspirin Aspirin No Aspirin Omeprazole Omeprazole No 1{capsu QD Omeprazole 40 MG 40 MG le} 40 MG Metoprolol Metoprolol No 1{table QD Metoprolol Succinate Succinate t} Succinate ER 50 mg ER 50 mg ER 50 mg Pantoprazol Pantoprazol No Pantoprazo e Sodium e Sodium le Sodium amLODIPine amLODIPine No amLODIPine Besylate Besylate Besylate Latanoprost Latanoprost No 1{drop_ QD Latanopros 0.005 % 0.005 % into_af t 0.005 % fected_ eye_in_ the_eve madi} Losartan Losartan No Losartan Potassium Potassium Potassium 50 MG 50 MG 50 MG Cetirizine Cetirizine No 1{table QD Cetirizine HCl 10 MG HCl 10 MG t} HCl 10 MG Citalopram Citalopram No Citalopram Hydrobromid Hydrobromid Hydrobromi e 10 MG e 10 MG de 10 MG Gabapentin Gabapentin No Gabapentin Ofloxacin Ofloxacin No Ofloxacin Flonase 50 Flonase 50 No 2{spray QD Flonase 50 MCG/ACT MCG/ACT _in_eac MCG/ACT h_nostr il} Flonase 50 Flonase 50 No 2{spray QD Flonase 50 MCG/DOSE MCG/DOSE _in_eac MCG/DOSE h_nostr il} prednisoLON prednisoLON No prednisoLO E Acetate E Acetate NE Acetate methylPREDN methylPREDN No methylPRED ISolone 4 ISolone 4 NISolone 4 MG MG MG clopidogrel clopidogrel No clopidogre l hydroCHLORO hydroCHLORO No hydroCHLOR thiazide thiazide Othiazide Aspirin Aspirin No Aspirin clopidogrel clopidogrel No clopidogre l Metoprolol Metoprolol No 1{table QD Metoprolol Succinate Succinate t} Succinate ER 50 mg ER 50 mg ER 50 mg Pantoprazol Pantoprazol No Pantoprazo e Sodium e Sodium le Sodium Aspirin Aspirin No Aspirin Losartan Losartan No Losartan Potassium Potassium Potassium 50 MG 50 MG 50 MG Latanoprost Latanoprost No 1{drop_ QD Latanopros 0.005 % 0.005 % into_af t 0.005 % fected_ eye_in_ the_eve madi} amLODIPine amLODIPine No amLODIPine Besylate Besylate Besylate Flonase 50 Flonase 50 No 2{spray QD Flonase 50 MCG/DOSE MCG/DOSE _in_eac MCG/DOSE h_nostr il} methylPREDN methylPREDN No methylPRED ISolone 4 ISolone 4 NISolone 4 MG MG MG Gabapentin Gabapentin No Gabapentin prednisoLON prednisoLON No prednisoLO E Acetate E Acetate NE Acetate Cetirizine Cetirizine No 1{table QD Cetirizine HCl 10 MG HCl 10 MG t} HCl 10 MG Metoprolol Metoprolol No Metoprolol Succinate Succinate Succinate Citalopram Citalopram No Citalopram Hydrobromid Hydrobromid Hydrobromi e 10 MG e 10 MG de 10 MG Flonase 50 Flonase 50 No 2{spray QD Flonase 50 MCG/ACT MCG/ACT _in_eac MCG/ACT h_nostr il} hydroCHLORO hydroCHLORO No hydroCHLOR thiazide thiazide Othiazide Ofloxacin Ofloxacin No Ofloxacin Omeprazole Omeprazole No 1{capsu QD Omeprazole 40 MG 40 MG le} 40 MG Metoprolol Metoprolol No Metoprolol Succinate Succinate Succinate Metoprolol Metoprolol No 1{table QD Metoprolol Succinate Succinate t} Succinate ER 50 mg ER 50 mg ER 50 mg Pantoprazol Pantoprazol No Pantoprazo e Sodium e Sodium le Sodium prednisoLON prednisoLON No prednisoLO E Acetate E Acetate NE Acetate Omeprazole Omeprazole No 1{capsu QD Omeprazole 40 MG 40 MG le} 40 MG Cetirizine Cetirizine No 1{table QD Cetirizine HCl 10 MG HCl 10 MG t} HCl 10 MG Latanoprost Latanoprost No 1{drop_ QD Latanopros 0.005 % 0.005 % into_af t 0.005 % fected_ eye_in_ the_eve madi} Citalopram Citalopram No Citalopram Hydrobromid Hydrobromid Hydrobromi e 10 MG e 10 MG de 10 MG Ofloxacin Ofloxacin No Ofloxacin hydroCHLORO hydroCHLORO No hydroCHLOR thiazide thiazide Othiazide Gabapentin Gabapentin No Gabapentin Flonase 50 Flonase 50 No 2{spray QD Flonase 50 MCG/DOSE MCG/DOSE _in_eac MCG/DOSE h_nostr il} Aspirin Aspirin No Aspirin amLODIPine amLODIPine No amLODIPine Besylate Besylate Besylate clopidogrel clopidogrel No clopidogre l Losartan Losartan No Losartan Potassium Potassium Potassium 50 MG 50 MG 50 MG Flonase 50 Flonase 50 No 2{spray QD Flonase 50 MCG/ACT MCG/ACT _in_eac MCG/ACT h_nostr il} methylPREDN methylPREDN No methylPRED ISolone 4 ISolone 4 NISolone 4 MG MG MG Metoprolol Metoprolol No Metoprolol Succinate Succinate Succinate Metoprolol Metoprolol No 1{table QD Metoprolol Succinate Succinate t} Succinate ER 50 mg ER 50 mg ER 50 mg Pantoprazol Pantoprazol No Pantoprazo e Sodium e Sodium le Sodium prednisoLON prednisoLON No prednisoLO E Acetate E Acetate NE Acetate Omeprazole Omeprazole No 1{capsu QD Omeprazole 40 MG 40 MG le} 40 MG Cetirizine Cetirizine No 1{table QD Cetirizine HCl 10 MG HCl 10 MG t} HCl 10 MG Latanoprost Latanoprost No 1{drop_ QD Latanopros 0.005 % 0.005 % into_af t 0.005 % fected_ eye_in_ the_eve madi} Citalopram Citalopram No Citalopram Hydrobromid Hydrobromid Hydrobromi e 10 MG e 10 MG de 10 MG Ofloxacin Ofloxacin No Ofloxacin hydroCHLORO hydroCHLORO No hydroCHLOR thiazide thiazide Othiazide Gabapentin Gabapentin No Gabapentin Flonase 50 Flonase 50 No 2{spray QD Flonase 50 MCG/DOSE MCG/DOSE _in_eac MCG/DOSE h_nostr il} Aspirin Aspirin No Aspirin amLODIPine amLODIPine No amLODIPine Besylate Besylate Besylate clopidogrel clopidogrel No clopidogre l Losartan Losartan No Losartan Potassium Potassium Potassium 50 MG 50 MG 50 MG Flonase 50 Flonase 50 No 2{spray QD Flonase 50 MCG/ACT MCG/ACT _in_eac MCG/ACT h_nostr il} methylPREDN methylPREDN No methylPRED ISolone 4 ISolone 4 NISolone 4 MG MG MG Metoprolol Metoprolol No Metoprolol Succinate Succinate Succinate Metoprolol Metoprolol No 1{table QD Metoprolol Succinate Succinate t} Succinate ER 50 mg ER 50 mg ER 50 mg Pantoprazol Pantoprazol No Pantoprazo e Sodium e Sodium le Sodium prednisoLON prednisoLON No prednisoLO E Acetate E Acetate NE Acetate Omeprazole Omeprazole No 1{capsu QD Omeprazole 40 MG 40 MG le} 40 MG Cetirizine Cetirizine No 1{table QD Cetirizine HCl 10 MG HCl 10 MG t} HCl 10 MG Latanoprost Latanoprost No 1{drop_ QD Latanopros 0.005 % 0.005 % into_af t 0.005 % fected_ eye_in_ the_eve madi} Citalopram Citalopram No Citalopram Hydrobromid Hydrobromid Hydrobromi e 10 MG e 10 MG de 10 MG Ofloxacin Ofloxacin No Ofloxacin hydroCHLORO hydroCHLORO No hydroCHLOR thiazide thiazide Othiazide Gabapentin Gabapentin No Gabapentin Flonase 50 Flonase 50 No 2{spray QD Flonase 50 MCG/DOSE MCG/DOSE _in_eac MCG/DOSE h_nostr il} Aspirin Aspirin No Aspirin amLODIPine amLODIPine No amLODIPine Besylate Besylate Besylate clopidogrel clopidogrel No clopidogre l Losartan Losartan No Losartan Potassium Potassium Potassium 50 MG 50 MG 50 MG Flonase 50 Flonase 50 No 2{spray QD Flonase 50 MCG/ACT MCG/ACT _in_eac MCG/ACT h_nostr il} methylPREDN methylPREDN No methylPRED ISolone 4 ISolone 4 NISolone 4 MG MG MG Metoprolol Metoprolol No 1{table QD Metoprolol Succinate Succinate t} Succinate ER 50 mg ER 50 mg ER 50 mg clopidogrel clopidogrel No clopidogre l Ofloxacin Ofloxacin No Ofloxacin Pantoprazol Pantoprazol No Pantoprazo e Sodium e Sodium le Sodium Latanoprost Latanoprost No 1{drop_ QD Latanopros 0.005 % 0.005 % into_af t 0.005 % fected_ eye_in_ the_eve madi} Citalopram Citalopram No Citalopram Hydrobromid Hydrobromid Hydrobromi e 10 MG e 10 MG de 10 MG Omeprazole Omeprazole No 1{capsu QD Omeprazole 40 MG 40 MG le} 40 MG Losartan Losartan No Losartan Potassium Potassium Potassium 50 MG 50 MG 50 MG Flonase 50 Flonase 50 No 2{spray QD Flonase 50 MCG/DOSE MCG/DOSE _in_eac MCG/DOSE h_nostr il} amLODIPine amLODIPine No amLODIPine Besylate Besylate Besylate Gabapentin Gabapentin No Gabapentin Flonase 50 Flonase 50 No 2{spray QD Flonase 50 MCG/ACT MCG/ACT _in_eac MCG/ACT h_nostr il} hydroCHLORO hydroCHLORO No hydroCHLOR thiazide thiazide Othiazide Cetirizine Cetirizine No 1{table QD Cetirizine HCl 10 MG HCl 10 MG t} HCl 10 MG Aspirin Aspirin No Aspirin prednisoLON prednisoLON No prednisoLO E Acetate E Acetate NE Acetate Metoprolol Metoprolol No 1{table QD Metoprolol Succinate Succinate t} Succinate ER 50 mg ER 50 mg ER 50 mg clopidogrel clopidogrel No clopidogre l Ofloxacin Ofloxacin No Ofloxacin Pantoprazol Pantoprazol No Pantoprazo e Sodium e Sodium le Sodium Latanoprost Latanoprost No 1{drop_ QD Latanopros 0.005 % 0.005 % into_af t 0.005 % fected_ eye_in_ the_eve madi} Citalopram Citalopram No Citalopram Hydrobromid Hydrobromid Hydrobromi e 10 MG e 10 MG de 10 MG Omeprazole Omeprazole No 1{capsu QD Omeprazole 40 MG 40 MG le} 40 MG Losartan Losartan No Losartan Potassium Potassium Potassium 50 MG 50 MG 50 MG Flonase 50 Flonase 50 No 2{spray QD Flonase 50 MCG/DOSE MCG/DOSE _in_eac MCG/DOSE h_nostr il} amLODIPine amLODIPine No amLODIPine Besylate Besylate Besylate Gabapentin Gabapentin No Gabapentin Flonase 50 Flonase 50 No 2{spray QD Flonase 50 MCG/ACT MCG/ACT _in_eac MCG/ACT h_nostr il} Immunizations Ordered Immunization Filled Immunization Date Status Commen ts Source Name Name PFIZER COVID-19 MRNA 2020-06-30 Completed [facility]ACC[facility] 00:00:00 [facility] PFIZER COVID-19 MRNA 2020-06-09 Completed [facility] VACCINATION 00:00:00 [facility] FLUCELVAX QUAD PF 2020-01-[address] 00:00:00 [facility] FluAD FluAD 2019-05-11 [facility] 08[facility] FluAD FluAD 2019-05-11 Completed [facility] - 08:47:00 [facility] FluAD FluAD 2019-05-11 Completed [facility] - 08:47:00 [facility] FluAD FluAD 2019-05-11 Completed [facility] - 08:47:00 [facility] FluAD FluAD 2019-05-11 Completed [facility] - 08:47:00 [facility] FluAD FluAD 2019-05-11 Completed [facility] - 08:47:00 [facility] FluAD FluAD 2019-05-11 Completed [facility] - 08:47:00 [facility] FluAD FluAD 2019-05-11 Completed [facility] - 08:47:00 [facility] FluAD FluAD 2019-05-11 Completed [facility] - 08:47:00 [facility] FluAD FluAD 2019-05-11 Completed [facility] - 08:47:00 [facility] FluAD FluAD 2019-05-11 Completed [facility] - 08:47:00 [facility] FluAD FluAD 2019-05-11 Completed [facility] - 08:47:00 [facility] FluAD FluAD 2019-05-11 Completed [facility] 00:00:00 [facility] Vital Signs Vital Name Observation Time Observation Value Comments Source height 2022-05-04 09:00:00 66.00 [in_i] [facility] weight 2022-05-04 09:00:00 205.4 [lb_av] [facility] temperature 2022-05-04 09:00:00 97.9 [degF] [facility] bmi 2022-05-04 09:00:00 33.15 kg/m2 [facility] blood pressure 2022-05-04 09:00:00 131 mm[Hg] [facility] - systolic [facility] blood pressure 2022-05-04 09:00:00 76 mm[Hg] [facility] - diastolic [facility] height 2021-12-15 09:30:00 66.00 [in_i] [facility] weight 2021-12-15 09:30:00 200 [lb_av] [facility] temperature 2021-12-15 09:30:00 98.6 [degF] [facility] bmi 2021-12-15 09:30:00 32.28 kg/m2 [facility] blood pressure 2021-12-15 09:30:00 138 mm[Hg] [facility] - systolic [facility] blood pressure 2021-12-15 09:30:00 86 mm[Hg] [facility] - diastolic [facility] height 2021-11-02 14:00:00 66.00 [in_i] Common [facility] weight 2021-11-02 14:00:00 200 [lb_av] [facility] temperature 2021-11-02 14:00:00 97.4 [degF] [facility] bmi 2021-11-02 14:00:00 32.28 kg/m2 [facility] height 2021-06-23 09:30:00 66.00 [in_i] [facility] weight 2021-06-23 09:30:00 200 [lb_av] [facility] temperature 2021-06-23 09:30:00 97.7 [degF] [facility] bmi 2021-06-23 09:30:00 32.28 kg/m2 [facility] blood pressure 2021-06-23 09:30:00 130 mm[Hg] [facility] - systolic [facility] blood pressure 2021-06-23 09:30:00 82 mm[Hg] [facility] - diastolic [facility] height 2021-04-15 09:00:00 66.00 [in_i] [facility] weight 2021-04-15 09:00:00 200 [lb_av] [facility] bmi 2021-04-15 09:00:00 32.28 kg/m2 [facility] blood pressure 2021-04-15 09:00:00 137 mm[Hg] [facility] - systolic [facility] blood pressure 2021-04-15 09:00:00 67 mm[Hg] [facility] - diastolic [facility] height 2021-03-30 10:00:00 56.00 [in_i] [facility] - [facility] weight 2021-03-30 10:00:00 200 [lb_av] [facility] - [facility] bmi 2021-03-30 10:00:00 44.83 kg/m2 [facility] blood pressure 2021-03-30 10:00:00 142 mm[Hg] [facility] - systolic [facility] blood pressure 2021-03-30 10:00:00 86 mm[Hg] [facility] - diastolic [facility] Systolic blood 2020-10-08 17:30:00 135 mm[Hg] [facility] Diastolic blood 2020-10-08 17:30:00 75 mm[Hg] [facility] Heart rate 2020-10-08 17:30:00 61 /min [facility] Body temperature 2020-10-08 17:30:00 36.61 [facility] Res[facility] rate 2020-10-08 17:30:00 20 /min [facility] Oxygen saturation in 2020-10-08 17:30:00 97 /min [facility] Arterial blood by [facility] Pulse oximetry Branch Body height 2020-10-02 19:08:00 167.6 cm [facility] Body weight 2020-10-02 19:08:00 88.5 kg [facility] BMI 2020-10-02 19:08:00 31.51 kg/m2 [facility] Systolic blood 2020-10-08 13:31:00 134 mm[Hg] [facility] Diastolic blood 2020-10-08 13:31:00 64 mm[Hg] [facility] Heart rate 2020-10-08 13:31:00 67 /min [facility] Body temperature 2020-10-08 13:31:00 36.33 [facility] Respiratory rate 2020-10-08 13:31:00 20 /min [facility] Oxygen saturation in 2020-10-08 13:31:00 98 /min [facility] Arterial blood by [facility] Pulse oximetry Branch Body height 2020-10-02 19:08:00 167.6 cm [facility] Body weight 2020-10-02 19:08:00 88.5 kg [facility] BMI 2020-10-02 19:08:00 31.51 kg/m2 [facility] Systolic blood 2020-09-24 17:02:00 136 mm[Hg] [facility] Diastolic blood 2020-09-24 17:02:00 47 mm[Hg] [facility] Heart rate 2020-09-24 17:02:00 52 /min [facility] Respiratory rate 2020-09-24 17:02:00 14 /min [facility] Oxygen saturation in 2020-09-24 17:02:00 99 /min [facility] Arterial blood by [facility] Pulse oximetry Branch Body temperature 2020-09-24 16:46:00 36.44 [facility] Body height 2020-09-23 19:15:00 167.6 cm [facility] Body weight 2020-09-23 19:15:00 88.451 kg [facility] BMI 2020-09-23 19:15:00 31.47 kg/m2 [facility] Systolic blood 2020-09-24 14:07:00 152 mm[Hg] [facility] Diastolic blood 2020-09-24 14:07:00 71 mm[Hg] [facility] Heart rate 2020-09-24 14:07:00 62 /min [facility] Body temperature 2020-09-24 14:07:00 36.56 [facility] Respiratory rate 2020-09-24 14:07:00 21 /min [facility] Oxygen saturation in 2020-09-24 14:07:00 96 /min [facility] Arterial blood by [facility] Pulse oximetry Branch Systolic blood 2020-09-24 14:07:00 152 mm[Hg] [facility] Diastolic blood 2020-09-24 14:07:00 71 mm[Hg] [facility] Heart rate 2020-09-24 14:07:00 62 /min [facility] Body temperature 2020-09-24 14:07:00 36.56 [facility] Respiratory rate 2020-09-24 14:07:00 21 /min [facility] Oxygen saturation in 2020-09-24 14:07:00 96 /min [facility] Arterial blood by [facility] Pulse oximetry Branch Body height 2020-09-23 19:15:00 167.6 cm [facility] Body weight 2020-09-23 19:15:00 88.451 kg [facility] BMI 2020-09-23 19:15:00 31.47 kg/m2 [facility] Body height 2020-09-23 19:15:00 167.6 cm [facility] Body weight 2020-09-23 19:15:00 88.451 kg [facility] BMI 2020-09-23 19:15:00 31.47 kg/m2 [facility] Systolic blood 2020-09-24 14:07:00 152 mm[Hg] [facility] Diastolic blood 2020-09-24 14:07:00 71 mm[Hg] [facility] Heart rate 2020-09-24 14:07:00 62 /min [facility] Body temperature 2020-09-24 14:07:00 36.56 [facility] Respiratory rate 2020-09-24 14:07:00 21 /min [facility] Oxygen saturation in 2020-09-24 14:07:00 96 /min [facility] Arterial blood by [facility] Pulse oximetry Branch Systolic blood 2020-09-24 14:07:00 152 mm[Hg] [facility] Diastolic blood 2020-09-24 14:07:00 71 mm[Hg] [facility] Heart rate 2020-09-24 14:07:00 62 /min [facility] Body temperature 2020-09-24 14:07:00 36.56 [facility] Respiratory rate 2020-09-24 14:07:00 21 /min [facility] Oxygen saturation in 2020-09-24 14:07:00 96 /min [facility] Arterial blood by [employer] giovanna Pulse oximetry Branch Body height 2020-09-23 19:15:00 167.6 cm [facility] Body weight 2020-09-23 19:15:00 88.451 kg [facility] BMI 2020-09-23 19:15:00 31.47 kg/m2 [facility] Body height 2020-09-23 19:15:00 167.6 cm [facility] Body weight 2020-09-23 19:15:00 88.451 kg [facility] BMI 2020-09-23 19:15:00 31.47 kg/m2 [facility] Systolic blood 2020-02-02 03:00:00 167 mm[Hg] [facility] Diastolic blood 2020-02-02 03:00:00 58 mm[Hg] [facility] Heart rate 2020-02-02 03:00:00 55 /min [facility] Respiratory rate 2020-02-02 03:00:00 20 /min [facility] Oxygen saturation in 2020-02-02 03:00:00 97 /min [facility] Arterial blood by [employer] giovanna Pulse oxim[facility] Branch Body temperature 2020-02-02 00:44:00 36.89 [facility] Body height 2020-02-02 00:44:00 167.6 cm [facility] Body weight 2020-02-02 00:44:00 88.451 kg [facility] BMI 2020-02-02 00:44:00 31.47 kg/m2 [facility] Systolic blood 2020-02-02 03:00:00 167 mm[Hg] [facility] Diastolic blood 2020-02-02 03:00:00 58 mm[Hg] [facility] Heart rate 2020-02-02 03:00:00 55 /min [facility] Respiratory rate 2020-02-02 03:00:00 20 /min Univ [facility] Oxygen saturation in 2020-02-02 03:00:00 97 /min [facility] Arterial blood by [facility] Pulse oximetry Branch Body temperature 2020-02-02 00:44:00 36.89 [facility] Body height 2020-02-02 00:44:00 167.6 cm [facility] Body weight 2020-02-02 00:44:00 88.451 kg [facility] BMI 2020-02-02 00:44:00 31.47 kg/m2 [facility] Systolic blood 2020-01-25 18:37:00 162 mm[Hg] [facility] Diastolic blood 2020-01-25 18:37:00 65 mm[Hg] [facility] Heart rate 2020-01-25 18:37:00 63 /min [facility] Oxygen saturation in 2020-01-25 18:37:00 96 /min [facility] Arterial blood by [facility] Pulse oximetry Branch Respiratory rate 2020-01-25 18:00:00 20 /min [facility] Body temperature 2020-01-25 16:13:00 37.06 [facility] Body height 2020-01-25 16:13:00 167.6 cm [facility] Body weight 2020-01-25 16:13:00 88.451 kg [facility] BMI 2020-01-25 16:13:00 31.47 kg/m2 [facility] Systolic blood 2020-01-25 18:37:00 162 mm[Hg] [facility] Diastolic blood 2020-01-25 18:37:00 65 mm[Hg] [facility] Heart rate 2020-01-25 18:37:00 63 /min [facility] Oxygen saturation in 2020-01-25 18:37:00 96 /min [facility] Arterial blood by [facility] giovanna Pulse oximetry Branch Respiratory rate 2020-01-25 18:00:00 20 /min [facility] Body temperature 2020-01-25 16:13:00 37.06 [facility] Body height 2020-01-25 16:13:00 167.6 cm [facility] Body weight 2020-01-25 16:13:00 88.451 kg [facility] BMI 2020-01-25 16:13:00 31.47 kg/m2 [facility] Systolic blood 2020-01-22 02:37:00 197 mm[Hg] [facility] Diastolic blood 2020-01-22 02:37:00 79 mm[Hg] [facility] Heart rate 2020-01-22 02:37:00 72 /min [facility] Body temperature 2020-01-22 02:37:00 36.67 [facility] Respiratory rate 2020-01-22 02:37:00 18 /min [facility] Body height 2020-01-22 02:37:00 167.6 cm [facility] Body weight 2020-01-22 02:37:00 88.451 kg [facility] BMI 2020-01-22 02:37:00 31.47 kg/m2 [facility] Oxygen saturation in 2020-01-22 02:37:00 97 /min [facility] Arterial blood by [facility] Pulse oximetry Branch Systolic blood 2020-01-22 02:37:00 197 mm[Hg] [facility] Diastolic blood 2020-01-22 02:37:00 79 mm[Hg] [facility] Heart rate 2020-01-22 02:37:00 72 /min [facility] Body temperature 2020-01-22 02:37:00 36.67 [facility] Respiratory rate 2020-01-22 02:37:00 18 /min [facility] Body height 2020-01-22 02:37:00 167.6 cm [facility] Body weight 2020-01-22 02:37:00 88.451 kg [facility] BMI 2020-01-22 02:37:00 31.47 kg/m2 [facility] Oxygen saturation in 2020-01-22 02:37:00 97 /min [facility] Arterial blood by [facility] Pulse oximetry Branch Procedures Procedure Date / Time Performing Source Performed Clinician PHACOEMULSIFICATION OF 2020-10-[address] [facility] CATARACT WITH INTRAOCULAR 16:38:00 [facility] LENS IMPLANT PATIENT QUESTIONNAIRE 2020-10-08 Doctor Unassigned, [facility] 05:01:00 [facility] DAY SURGERY - ADC 2020-10-08 Doctor Unassigned, [facility] 05:01:00 [facility] CONSENT/REFUSAL FOR DIAGNOSIS 2020-10-07 Doctor Unassigned, [facility] AND TREATMENT 15:52:46 [facility] CONSENT/REFUSAL FOR DIAGNOSIS 2020-10-07 Doctor Unassigned, [facility] AND TREATMENT 15:52:46 [facility] ASSIGNMENT OF BENEFITS 2020-10-07 Doctor Unassigned, [facility] 15:52:12 [facility] ASSIGNMENT OF BENEFITS 2020-10-07 Doctor Unassigned, [facility] 15:52:12 [facility] ASSIGNMENT OF BENEFITS 2020-10-[address] [facility] 15:51:56 [facility] ASSIGNMENT OF BENEFITS 2020-10-07 Doctor Unassigned, [facility] 15:51:56 [facility] NOTICE OF PRIVACY PRACTICES 2020-10-07 Doctor Unassigned, [facility] 15:51:33 [facility] NOTICE OF PRIVACY PRACTICES 2020-10-07 Doctor Unassigned, [facility] 15:51:33 [facility] CONSENT/REFUSAL FOR DIAGNOSIS 2020-10-07 Doctor Unassigned, [facility] AND TREATMENT 15:51:04 [facility] CONSENT/REFUSAL FOR DIAGNOSIS 2020-10-07 Doctor Unassigned, [facility] AND TREATMENT 15:51:04 [facility] ASSIGNMENT OF BENEFITS 2020-10-07 Doctor Unassigned, [facility] 15:50:41 [facility] ASSIGNMENT OF BENEFITS 2020-10-07 Doctor Unassigned, [facility] 15:50:41 [facility] PHACOEMULSIFICATION OF 2020-09-[address] [facility] CATARACT WITH INTRAOCULAR 16:07:00 Medica l Branch LENS IMPLANT PHACOEMULSIFICATION OF 2020-09-[address] [facility] CATARACT WITH INTRAOCULAR 16:07:00 [facility]ica [facility] LENS IMPLANT ASSIGNMENT OF BENEFITS 2020-09-19 Doctor Unassigned, [facility] 15:49:55 [facility] EXTERNAL PROVIDER RECORDS 2020-09-03 Doctor Unassigned, Uni [facility] 05:01:00 [facility] REFERRAL- REQUEST/RESPONSE 2020-09-03 Doctor Unassigned, [facility] [place] 05:01:00 [facility] EXTERNAL PROVIDER RECORDS 2020-09-03 Doctor Unassigned, [facility] 05:01:00 [facility] REFERRAL- REQUEST/RESPONSE 2020-09-03 Doctor Unassigned, [facility] [place] 05:01:00 [facility] EXTERNAL PROVIDER RECORDS 2020-09-03 Doctor Unassigned, [facility] 05:01:00 [facility] REFERRAL- REQUEST/RESPONSE 2020-09-03 Doctor Unassigned, [facility] [place] 05:01:00 [facility] MAGNESIUM 2020-02-02 Wing Lee [facility] 01:11:00 Medical Branch TROPONIN I 2020-02-02 Wing Lee [facility] 01:11:00 [facility] COMP. METABOLIC PANEL ([id number]) 2020-02-02 [facility] 01:11[facility] CBC WITH DIFF 2020-02-02 Wing Lee Estela [facility] 01:11:00 Medical Branch EKG-12 LEAD 2020-02-02 Wing Lee Estela [facility] 00:59:33 [facility] CONSENT/REFUSAL FOR DIAGNOSIS 2020-02-02 Doctor Unassigned, [facility] AND TREATMENT 00:30:47 [facility] CREATINE KINASE 2020-01-25 Sam Mendiola [facility] 17:19:00 [facility] COMP. METABOLIC PANEL ([id number]) 2020-01-25 [facility] 17:19:00 [facility] CONSENT/REFUSAL FOR DIAGNOSIS 2020-01-25 Doctor Unassigned, [facility] AND TREATMENT 15:57:30 [facility] NOTICE OF PRIVACY PRACTICES 2020-01-22 Doctor Unassigned, [facility] 02:27:05 [facility] CONSENT/REFUSAL FOR DIAGNOSIS 2020-01-22 Doctor Unassigned, [facility] AND TREATMENT 02:26:18 [facility] CONSENT/REFUSAL FOR DIAGNOSIS 2020-01-22 Doctor Unassigned, [facility] AND TREATMENT 02:26:17 [facility] Plan of Care Planned Activity Planned Date Details Comments Source Future Scheduled 2022-05-05 Hepatitis C screening [facility] Test 02:37:33 (procedure) [code = 951263657] Future Scheduled 2022-05-05 SHINGLES VACCINES (1 Met [facility] Test 02:37:33 of 2) [code = SHINGLES VACCINES (1 of 2)] Future Scheduled 2022-05-05 65+ PNEUMOCOCCAL [facility] Test 02:37:33 VACCINE (1 - PCV) [code = 65+ PNEUMOCOCCAL VACCINE (1 - PCV)] Future Scheduled 2022-05-05 COVID-19 VACCINE (3 - [facility] Test 02:37:33 Booster for Pfizer series) [code = COVID-19 VACCINE (3 - Booster for Pfizer series)] Future Scheduled 2022-05-05 INFLUENZA VACCINE [facility] Test 02:37:33 [code = INFLUENZA VACCINE] Future Scheduled 2021-09-24 Depression screening [facility] Test 00:00:00 (procedure) [code = Medical Branch [id number]] Future Scheduled 2021-01-[address] [facility] Test 00:00:00 (Season Ended) [code Medical Branch = INFLUENZA VACCINE (Season Ended)] Future Scheduled 2007-08-26 Medicare Annual [facility] Test 00:00:00 Wellness Visit Medical [facility] h (procedure) [code = 547426507349422] Future Scheduled 2007-08-26 Screening for [facility] Test 00:00:00 osteoporosis Medical Branch (procedure) [code = [id number]] Future Scheduled 2007-08-26 PNEUMOCOCCAL VACCINES [facility] 00:00:00 65+ (1 of 1 - PPSV23) Medica l Branch [code = PNEUMOCOCCAL VACCINES 65+ (1 of 1 - PPSV23)] Future Scheduled 1992 Zoster Recombinant Unive [facility] Test 00:00:00 Vaccine (SHINGRIX) (1 Medica l Branch of 2) [code = Zoster Recombinant Vaccine (SHINGRIX) (1 of 2)] Future Scheduled 1961 DTaP,Tdap,and Td [facility] Test 00:00:00 Vaccines (1 - Tdap) Medical Branch [code = DTaP,Tdap,and Td Vaccines (1 - Tdap)] Encounters Start End Encounter Admission Attending Care Care Encounter Source Date/Time Date/Time Type Type Clinicians Facility Department ID 2022-05-04 Outpatient [place], Na STLMLC STLMLC [id number] 2 Common 08:45:00 [facility] 2022-05-03 Outpatient [place], Na STLMLC STLMLC [id number] 2 Common 15:21:01 [facility] 2021-11-03 Outpatient [place], Na STLMLC STLMLC [id number] 2 Common 09:01:00 [facility] 2021-11-02 Outpatient [place], Na STLMLC STLMLC [id number] 2 Common 14:21:00 [facility] 2021-06-17 Outpatient [place], Na STLMLC STLMLC [id number] 2 Common 13:03:58 [id number] [facility] 2021-06-17 Outpatient [place], Na STLMLC STLMLC [id number] 2 Common 12:04:35 [id number] [facility] 2021-06-17 Outpatient [place], Na STLMLC STLMLC [id number] 2 Common 12:04:03 [id number] [facility] 2021-06-17 Outpatient [place], Na STLMLC STLMLC [id number] 2 Common 11:48:10 [id number] [facility] 2021-06-17 Outpatient [place], Na STLMLC STLMLC [id number] 2 Common 11:46:30 [id number] [facility] 2021-06-17 Outpatient [place], Na STLMLC STLMLC [id number] Common 11:45:31 21519 [facility] 2021-06-17 Outpatient [place], Na STLMLC STLMLC [id number] 2 Common 11:37:02 75263 [facility] 2021-06-17 Outpatient [place], Na STLMLC STLMLC [id number] 2 Common 11:25:48 71542 [facility] 2021-06-17 Outpatient [place], Na STLMLC STLMLC [id number] 2 Common 11:25:17 09743 [facility] 2021-03-22 [facility] [id number] Univers 18:37:14 [facility] 2021-03-22 [facility] [id number] Univers 16:20:46 [facility] 2022-05-11 2022-05-11 (TEL) STLMLC STLMLC [id number] Co mmon 00:00:00 00:00:00 [facility] 2022-05-06 2022-05-06 Outpatient CONRAD_Ajaycristofer AOSM AOSM [id number] Gaby 00:00:00 00:00:00 _Varinder [id number] [facility] 2022-05-06 2022-05-06 (TEL) STLMLC STLMLC [id number] Co mmon 00:00:00 00:00:00 [facility] 2022-05-04 2022-05-04 OFFICE STLMLC STLMLC [id number] Co mmon 00:00:00 00:00:00 VISIT [facility] ESTAB PT - CHI LEVEL 4 [facility] 2021-12-15 2021-12-15 OFFICE STLMLC STLMLC [id number] Co mmon 00:00:00 00:00:00 VIS[address] [facility] PT - CHI LEVEL 4 [facility] 2021-11-25 2021-11-25 (TEL) STLMLC STLMLC [id number] Co mmon 00:00:00 00:00:00 [facility] 2021-11-03 2021-11-03 (TEL) STLMLC STLMLC [id number] Co mmon 00:00:00 00:00:00 [facility] 2021-11-02 2021-11-02 OFFICE STLMLC STLMLC [id number] Co mmon 00:00:00 00:00:00 [facility]ISIT [facility] PT - CHI LEVEL 4 [facility] 2021-06-23 2021-06-23 OFFICE STLMLC STLMLC [id number] Co mmon 00:00:00 00:00:00 VISIT [facility] EST[facility] PT - CHI LEVEL 4 [facility] 2021-04-15 2021-04-15 OFFICE STLMLC STLMLC [id number] Co mmon 00:00:00 00:00:00 VISIT [facility] EST[facility] PT - CHI LEVEL [address] [place] [address] 2021-04-13 2021-04-13 (TEL) STLMLC STLMLC [id number] Co mmon 00:00:00 00:00:00 [facility] 2021-03-30 2021-03-30 (TEL) STLMLC STLMLC [id number] Co mmon 00:00:00 00:00:00 [facility] 2021-03-30 2021-03-30 OFFICE STLMLC STLMLC [id number] Co mmon 00:00:00 00:00:00 VISIT [facility] EST[facility] PT - CHI LEVEL [address] [place] [address] 2020-10-16 2020-10-16 Outpatient STLMLC STLMLC [id number] Common 00:00:00 00:00:00 [facility] 2020-10-08 2020-10-08 Hospital [facility] [id number] Univers 08:29:00 12:45:00 Encounter Devante Denney [id number] [place] 4.2.7.2.686 [facility] [id number] [place] [address] [place] 2020-10-08 2020-10-08 Surgery [facility] [id number] Univers 10:45:00 11:25:00 Devante Denney [id number] [place] [phone] [facility] 0[address] 2020-10-07 2020-10-07 Outpatient R MANOHAR [place] [id number] Univers 11:45:00 11:45:00 DEVANTE ity of [facility] 2020-10-07 2020-10-07 Laboratory Only, Adc Test [facility] 1.2.840. 114 [id number] Univers 10:50:34 11:05:34 Only Devante Villela 350.1.13.1 0 [place] [id number] [facility] [address] [place] 2020-10-06 2020-10-06 Outpatient STLMLC STLMLC [id number] Common 00:00:00 00:00:00 [facility] 2020-09-24 2020-09-24 [facility] [id number] Univers 08:55:00 12:12:00 Encounter Devante Denney [id number] [place] [phone] [facility] [address] 2020-09-24 2020-09-24 Surgery [facility] [id number] Univers 10:52:00 11:32:00 Devante Boudreaux [place] [id number] [place] [id number] [facility] 020 [address] 2020-09-23 2020-09-23 Laboratory Only, Adc Test [facility] 1.2.840. 114 [id number] Univers 09:19:55 09:34:55 Only Devante Villela Jumana 350.1.13.1 0 [place] 4[place].686 [place] [phone] [facility] [address] 2020-09-23 2020-09-23 Outpatient [facility] [id number] Univers 09:30:00 09:30:00 DEVANTE michael [facility] 2020-09-19 2020-09-19 Outpatient R MANOHAR [place] [id number] Univers 13:00:00 13:00:00 DEVANTE michael [facility] 2020-09-19 2020-09-19 Gas Meter Prover Reji Zuñiga Lab Main [facility] 1.2.8 40.114 [id number] Univers 10:53:53 11:08:53 Visit Devante Villela 350.1.13.1 0 [place].2.[place] [phone] [place] [address] 2020-09-19 2020-09-19 Orders Doctor VETO 1.2.840.114 [id number] Univers 00:00:00 00:00:00 Only Unassigned, JACKIE 350.1.13.10 ity of [place] [facility] 4.2.7.2.686 Will as [phone] [place] [address] [place] 2020-07-14 2020-07-14 Outpatient STLMLC STLMLC [id number] [facility] 00:00:00 00:00:00 [facility] 2020-06-30 2020-06-30 [facility]patient [facility] [id number] [address] [place] 00:00:00 00:00:[address] 2020-06-09 2020-06-09 Outpatient [facility] [id number] [address] [place] 00:00:00 00:00:00 771 [facility] 2020-03-20 2020-03-20 Outpatient [facility] [id number] [address] [place] 00:00:00 00:00:00 256 [facility] 2020-02-26 2020-02-26 Outpatient GADHIA, [facility] [id number] [address] [place] 00:00:00 00:00:00 DWIGHT 086 [facility] 2020-02-07 2020-02-07 Outpatient [facility] [id number] [address] [place] 00:00:00 00:00:00 815 [facility] 2020-02-04 2020-02-04 Out[facility] [id number] Common 09:18:00 09:18:00 t [facility] it [facility] 2020-02-01 2020-02-01 Emergency Wing Lee [facility] 1.2.840.114 [id number] Univers 19:53:00 22:28:00 Estela Blacklick 350.1.13.10 i ty of [place] 4.2.7.2.686 [facility] [phone] [address] 2020-02-01 2020-02-01 Emergency Wing Lee [facility] 1.2.840.114 [id number] 19:53:00 22:28:00 Estela Blacklick 350.1.13.[address] [address] [place] [address] [id number] [facility] 2020-02-01 2020-02-01 Emergency X Wing LEE [facility] ERT [id number] Univers 19:53:00 19:53:00 ity [facility] 2020-01-31 2020-01-31 Outpatient [facility] [id number] Common 09:17:00 09:17:00 t [facility] it Drive [facility] 2020-01-30 2020-01-30 Outpatient [facility] [id number] Common 09:30:00 09:30:00 t [facility] it Drive [facility] 2020-01-25 2020-01-25 Emergency Sam Mendiola [facility] 1.2.840.114 [id number] Univers 11:03:00 13:39:00 T [place] 350.1.13.10 i ty of [place] 4.2.7.2.686 [facility] [id number] [address] 2020-01-25 2020-01-25 Emergency Sam Mendiola [facility] 1.2.840.114 [id number] 11:03:00 13:39:00 T [place] 350.1.13.10 [place] 4.2.7.2.686 [place] [id number] [facility] 2020-01-25 2020-01-25 Emergency X [facility] ERT [id number] Univers 11:03:00 11:03:00 ity [facility] 2020-01-25 2020-01-25 Outpatient [facility] [id number] Common 10:24:00 10:24:[address] [facility] 2020-01-24 2020-01-24 Outpatient [facility] [id number] Common 15:31:00 15:31:[address] [facility] 2020-01-23 2020-01-24 Outpatient ANTWAN [facility] [id number] [address] [place] 00:00:00 00:00:00 TUYET [address] 2020-01-23 2020-01-23 Outpatient [facility] [id number] Common 10:40:00 10:40:[address] [facility] 2020-01-21 2020-01-21 Emergency [facility] [id number] Univers 21:39:00 23:54:00 Agatha Denney 350.1.13.10 [facility] 4.2.7.2.686 [facility] [id number] [address] 2020-01-21 2020-01-21 Emergency [facility] [id number] 21:39:00 23:54:00 Agatha Rox AgustinBlacklick 350.1.13.10 [place] [address] [place] [address] [id number] [facility] 2020-01-21 2020-01-21 Emergency X [facility] ERT [id number] Univers 21:39:00 21:39:00 AGATHA michael [facility] 2020-01-04 2020-01-04 Outpatient [facility] [id number] Common 08:20:00 08:20:[address] [facility] 2019-12-04 2019-12-04 Outpatient [facility] [id number] Common 13:20:00 13:20:[address] [facility] 2019-11-02 2019-11-02 Outpatient [facility] [id number] Common 16:00:00 16:00:[address] [facility] 2019-11-02 2019-11-02 Out[facility] [id number] Common 15:30:00 15:30:[address] [facility] 2019-10-02 2019-10-02 Out[facility] [id number] Common 10:40:00 10:40:[address] [facility] 2019-06-15 2019-06-15 Outpatient [facility] [id number] Common 12:48:00 12:48:[address] [facility] 2019-05-11 2019-05-11 Outpatient [facility] [id number] Common 08:40:00 08:40:[address] [facility] 2019-04-27 2019-04-27 Outpatient [facility] [id number] Common 16:00:00 16:00:[address] [facility] 2019-03-16 2019-03-16 Outpatient [facility] [id number] Common 08:20:00 08:20:[address] [facility] 2019-01-26 2019-01-26 Outpatient [facility] [id number] Common 09:40:00 09:40:[address] [facility] 2019-01-17 2019-01-17 Outpatient [facility] [id number] Common 09:26:00 09:26:[address] [facility] 2018-12-08 2018-12-08 Outpatient [facility] [id number] Common 08:30:00 08:30:[address] [facility] 2018-07-26 2018-07-26 Outpatient [facility] [id number] Common 09:00:00 09:00:[address] [facility] 2018-06-13 2018-06-13 Outpatient [facility] [id number] Common 08:45:00 08:45:[address] [facility] 2018-01-26 2018-01-26 Outpatient [facility] [id number] Common 09:45:00 09:45:[address] [facility] 2018-01-08 2018-01-08 Outpatient [facility] [id number] Common 03:47:00 03:47:[address] [facility] 2017-12-29 2017-12-29 Outpatient [facility] 15 [id number] Common 13:45:00 13:45:[address] [facility] 2017-12-28 2017-12-28 Outpatient [facility] [id number] Common 08:47:00 08:47:[address] [facility] 2017-10-26 2017-10-26 Outpatient [facility] [id number] Common 09:45:00 09:45:[address] [facility] Results Test Description Test Time Test Comments Results Result Comments Source TROPONIN I 2020-02-02 01:55:00 Test Item Value Reference Range Interpretation Comme nts TROPONIN I (test code = <0.012 See_Comment [Au tomated message] The 5947533867) system which ge nerated this result tra [...] ? Lab Interpretation (test Normal code = 84819-0) [facility] 01:44:00 Test Item Value Reference Range Interpretation Comments MAGNESIUM (test code = 7438220918) 2.3 mg/dL 1.7-2.4 Lab Interpretation (test code = Normal 99261-7) [facility]OLIC PANEL (35010)2020-02-02 01:43:00 Test Item Value Reference Range Interpretation Comments NA (test code = 140 mmol/L 135-145 3476488715) K (test code = 4.5 mmol/L 3.5-5 7321659633) CL (test code = 104 mmol/L 98-108 9057557620) CO2 TOTAL (test code = 29 mmol/L 23-31 8473990896) AGAP (test code = 2-16 2099116519) BUN (test code = 15 mg/dL 7-23 9612230237) GLUCOSE (test code = 132 mg/dL 70-110 H 7272017423) CREATININE (test code = 0.64 mg/dL 0.5-1.04 0710169223) TOTAL BILI (test code = 0.3 mg/dL 0.1-1.8 6352798444) CALCIUM (test code = 10.0 mg/dL 8.6-10.6 2750347737) T PROTEIN (test code = 7.1 g/dL 6.3-8.2 1569504694) ALBUMIN (test code = 4.0 g/dL 3.5-5 2190789331) ALK PHOS (test code = 107 U/L 34-122 0050271840) ALTv (test code = 21 U/L 5-35 1742-6) AST(SGOT) (test code = 27 U/L 13-40 2100011201) eGFR Calculation mL/min/1.73m2 (Non-) (test code = 1762204037) eGFR Calculation mL/min/1.73m2 () (test code = 9773719068) JASPREET (test code = JASPREET) Association of [...] tests). Lab Interpretation Abnormal (test code = 51195-3) [facility] WITH [id number] 01:34:00 Test Item Value Reference Range Interpretation Comments WBC (test code = See_Comment [Automated message] 6690-2) The system [employer] generated this result transmitted ref erence range: 4.30 - 1 1.10 10*3/?L. The re ference range was not u sed to interpret this result as normal/abnor mal. RBC (test code = See_Comment [Automated message] 789-8) The system [employer] generated this result transmitted ref erence range: [...] RDW-SD (test code 40.2 fL 39-49.9 = 83892-0) RDW-CV (test code 12.5 % 12-15.5 = 788-0) PLT (test code = See_Comment [Automated message] 777-3) The system [employer] generated this result transmitted ref erence range: 166 - 35 8 10*3/?L. The re ference range was not u sed to interpret this result as normal/abnor mal. MPV (test code = 9.9 fL 9.5-12.9 41123-2) NRBC/100 WBC (test See_Comment [Automat ed message] code = 0790058493) The syste m which generated this result transmitted ref erence range: 0.0 - 10 .0 /100 WBCs. The refer ence range was not u sed to interpret this result as normal/abnor mal. NRBC x10^3 (test <0.01 See_Comment [Automated message] code = 9492170319) The syste m which generated this result transmitted ref erence range: 10*3/?L. The reference range was not used to interpr et this result as normal/abnormal . GRAN MAT (NEUT) % 66.5 % (test code = 770-8) IMM GRAN % (test 0.30 % code = 1922854932) LYMPH % (test code 24.2 % = 736-9) MONO % (test code 7.1 % = 5905-5) EOS % (test code = 1.5 % 713-8) BASO % (test code 0.4 % = 706-2) GRAN MAT 6.11 10*3/uL 1.88-7.09 x10^3(ANC) (test code = 0905282814) IMM GRAN x10^3 0.03 10*3/uL 0-0.06 (test code = 5215774456) LYMPH x10^3 (test 2.22 10*3/uL 1.32-3.29 code = 731-0) MONO x10^3 (test 0.65 10*3/uL 0.33-0.92 code = 742-7) EOS x10^3 (test 0.14 10*3/uL 0.03-0.39 code = 711-2) BASO x10^3 (test 0.04 10*3/uL 0.01-0.07 code = 704-7) [facility] (08344)2020-01-25 18:04:00 Test Item Value Reference Range Interpretation Comments NA (test code = 142 mmol/L 135-145 0789239230) K (test code = 4.0 mmol/L 3.5-5 3013631096) CL (test code = 106 mmol/L 98-108 6085778985) CO2 TOTAL (test code = 31 mmol/L 23-31 1676288917) AGAP (test code = 2-16 7981906481) BUN (test code = 13 mg/dL 7-23 8936765539) GLUCOSE (test code = 153 mg/dL 70-110 H 5353653751) CREATININE (test code = 0.62 mg/dL 0.5-1.04 0556893407) TOTAL BILI (test code = 0.4 mg/dL 0.1-1.7 8693590661) CALCIUM (test code = 9.9 mg/dL 8.6-10.6 4683690586) T PROTEIN (test code = 7.0 g/dL 6.3-8.2 3263536912) ALBUMIN (test code = 4.2 g/dL 3.5-5 6432684683) ALK PHOS (test code = 107 U/L 34-122 0504972885) ALTv (test code = 19 U/L 5-35 1742-6) AST(SGOT) (test code = 23 U/L 13-40 0426534840) eGFR Calculation mL/min/1.73m2 (Non-) (test code = 7573571323) eGFR Calculation mL/min/1.73m2 () (test code = 3746057454) JASPREET (test code = JASRPEET) Association of Glomerular Filtration Rate (GFR) and [...] tests). Lab Interpretation Abnormal (test code = 58803-1) [facility] HospitalCREAT[facility] [id number] 18:03:00 Test Item Value Reference Range Interpretation Comments CK (test code = 4878667097) 55 U/L 33-194 Lab Interpretation (test code = Normal 94753-5) [facility]ARS[facility]CoV-2 (COVID-19) RNA [Presence] in Respiratory specimen by LIVAN with probe [id number] 13:02:35 Test Item Value Reference Range Interpretation Comments SARS-CoV-2 (COVID-19) RNA Not detected Not-Detected [Presence] in Respiratory specimen by LIVAN with probe detection (test code = 11269-0) [facility] Knee Right Wo ContMRI Knee Right Wo Cont"
[2022-06-16 16:54] LABS: Absolute Lymphocytes (CBC) 1.8 K/uL (0.7-4.9); Hematocrit 43.6 % (36.0-45.0); Lymphocytes % 20.6 % (15.3-44.8); MCV 89.4 fL (80-100); MPV 7.6 fL (7.6-11.3); RBC Red Blood Cell Count 4.87 M/uL (3.86-4.86)
[2022-06-16] MEDS ORDERED: METOPROLOL TARTRATE 5 MG/5 ML INJ IV ONE (16:55)
[2022-06-16 17:16] LABS: Magnesium 2.3 mg/dL (1.6-2.4); Potassium 3.7 mmol/L (3.5-5.1); Thyroid Stimulating Hormone 0.576 uIU/mL (0.358-3.740); Troponin High Sensitivity 14.4 pg/mL (<58.9)
[2022-06-16 17:21] LABS: SARS-CoV-2 Antigen Rapid Res Negative (Negative)
--- NOTE | 2022-06-16 17:40 | RAD REPORT ---
EXAM DESCRIPTION: RAD - Chest Single View - 06/16/2022 5:33 pm CLINICAL HISTORY: PALPITATIONS Chest pain. COMPARISON: Chest Pa And Lat (2 Views) dated 09/19/2020; Chest Single View dated 08/18/2020; CHEST PA AND LAT 2 VIEW dated 02/19/2014; CHEST PA AND LAT 2 VIEW dated 03/12/2008 FINDINGS: Portable technique limits examination quality. The lungs are grossly clear. The heart is normal in size. No displaced fractures. IMPRESSION: No acute intrathoracic process suspected.
--- NOTE | 2022-06-16 18:30 | ER ---
Nurse's Notes [facility] Name: Deisy Yusuf Age: 81 yrs Sex: Female : 1940 Arrival Date: 06/16/2022 Time: 15:51 Bed 17 Private MD: Len Lopez E Diagnosis: Unspecified atrial fibrillation-with RVR - new onset Presentation: 06/16 16:20 Chief complaint: Patient states: she was having some anxiety this afternoon, and took ap3 her blood pressure. patient states her blood pressure was 140/100, it was at that time the phoned her dr and he informed her to come to the ED for further evaluation. Coronavirus screen: At this time, the client does not indicate any symptoms associated with coronavirus-19. Ebola Screen: No symptoms or risks identified at this time. Initial Sepsis Screen: Does the patient meet any 2 criteria? No. Patient's initial sepsis screen is negative. Does the patient have a suspected source of infection? No. Patient's initial sepsis screen is negative. Risk Assessment: Do you want to hurt yourself or someone else? Patient reports no desire to harm self or others. Onset of symptoms was June 16, 2022. 16:20 Method Of Arrival: Ambulatory ap3 16:28 Acuity: KIRSTIN 3 ap3 16:40 Acuity: KIRSTIN 2 ap3 Triage Assessment: 16:29 General: Appears in no apparent distress. Behavior is calm, cooperative, appropriate ap3 for age. Pain: Denies pain. Neuro: Level of Consciousness is awake, alert, obeys commands, Oriented to person, place, time, situation, Moves all extremities. Gait is steady. Cardiovascular: Patient's skin is warm and dry. Respiratory: Airway is patent Respiratory effort is even, unlabored, Respiratory pattern is regular, symmetrical. Historical: - Allergies: 16:21 Codeine; ap3 - Home Meds: 16:21 aspirin 325 mg Oral tab 1 tab once daily [Active]; losartan 100 mg Oral tab 1 tab once ap3 daily [Active]; metoprolol succinate ER 50 mg daily [Active]; clopidogrel 75 mg Oral tab 1 tab once daily [Active]; rosuvastatin 10 mg Oral tab 1 tab once daily [Active]; escitalopram oxalate 10 mg oral tab [Active]; pantoprazole 40 mg oral grps [Active]; - PMHx: 16:21 CVA; Hyperlipidemia; Hypertension; ap3 - Immunization history:: Client reports receiving the 2nd dose of the Covid vaccine. - Social history:: Smoking status: Patient denies any tobacco usage or history of. Screenin:29 [facility] ED Fall Risk Assessment (Adult) History of falling in the last 3 months, ap3 including since admission No falls in past 3 months (0 pts) Confusion or Disorientation No (0 pts) Intoxicated or Sedated No (0 pts) Impaired Gait Yes (1 pt) Mobility Assist Device Used Yes (1 pt) Altered Elimination No (0 pt) Score/Fall Risk Level 0 - 2 = Low Risk Oriented to surroundings, Maintained a safe environment, Educated pt \T\ family on fall prevention, incl call for assistance when getting out of bed, Assessed \T\ reinforced patient's understanding of fall precautions, Hourly rounding (assess needs \T\ fall precautionary measures) done, Used ambulatory aids as needed (educated on \T\ assisted with). Abuse screen: Denies threats or abuse. Nutritional screening: No deficits noted. Tuberculosis screening: No symptoms or risk factors identified. Assessment: 18:24 Reassessment: Patient and/or family updated on plan of care and expected duration. Pain ap3 level reassessed. Patient is alert, oriented x 3, equal unlabored respirations, skin warm/dry/pink. Vital Signs: 16:20 BP 138 / 91; Pulse 81; Resp 17; Temp 98.7; Pulse Ox 96% ; Weight 91.63 kg; Height 5 ft. ap3 6 in. (167.64 cm); 16:30 Pulse 139; ap3 17:04 Pulse 126; ap3 17:18 BP 131 / 90; Pulse 117; Resp 17; Pulse Ox 98% on R/A; ap3 17:49 Pulse 114; ap3 16:20 Body Mass Index 32.60 (91.63 kg, 167.64 cm) ap3 ED Course: 15:51 Patient arrived in ED. mr 15:51 Len Lopez MD is Private Physician. mr 15:57 Patricia Velázquez FNP-C [facility] kb 15:57 Jerad Calixto MD is Attending Physician. kb 16:20 Claudette Saleem, ANTOINE is Primary Nurse. ap3 16:21 Triage completed. ap3 16:30 Arm band placed on right wrist. ap3 16:30 Patient has correct armband on for positive identification. Bed in low position. Call ap3 light in reach. Side rails up X 1. Adult w/ patient. Pulse ox on. NIBP on. Door closed. Noise minimized. Warm blanket given. 17:01 Inserted saline lock: 20 gauge in right antecubital area, using aseptic technique. ap3 Blood collected. 17:02 SARS RAPID Sent. ap3 17:35 XRAY Chest (1 view) In Process Unspecified. EDMS 18:26 Nurse Practitioner and/or Physician Solution Design And Analysis Manager to see patient. ap3 18:29 Mukund Sanders is Hospitalizing Provider. kb 19:12 Primary Nurse role handed off by Claudette Saleem RN mw2 06/17 08:24 No provider procedures requiring assistance completed. Patient admitted, IV remains in ap3 place. 14:32 Joan Flores RN is Primary Nurse. kr3 Administered Medications: 06/16 16:54 Drug: Lopressor (metoprolol) 5 mg {Note: HR145.} Route: IVP; Site: right antecubital; ap3 16:59 Drug: Lopressor (metoprolol) 5 mg {Note: HR 125.} Route: IVP; Site: right antecubital; ap3 17:04 Drug: Lopressor (metoprolol) 5 mg {Note: HR 116.} Route: IVP; Site: right antecubital; ap3 18:47 Drug: Tylenol 1000 mg Route: PO; ap3 18:47 Drug: Lovenox (enoxaparin) 1 mg/kg Route: Sub-Q; Site: abdomen; ap3 18:56 Drug: Cardizem (diltiazem) 20 mg Route: IVP; Site: right antecubital; ap3 Medication: 16:30 VIS not applicable for this client. ap3 Outcome: 18:29 Decision to Hospitalize by Provider. kb 06/17 08:25 Admitted to ER Hold. [facility]. ap3 Condition: good 14:39 Patient left the ED. eh3 Signatures: Dispatcher [employer] EDMS Patricia Velázquez, EMILIANA ZINC CHLORIDE OPERATOR-Wyatt Katya Toure mr Claudette Saleem, ANTOINE RN 3 Oliva Medellin 2 Gemini Chatman RN RN 3 Joan Flores RN RN kr3 Corrections: (The following items were deleted from the chart) 06/16 16:28 16:20 Acuity: KIRSTIN 4 ap3 ap3
--- NOTE | 2022-06-16 18:30 | EDPHYS ---
Physician Documentation [facility] Name: Deisy Yusuf Age: 81 yrs Sex: Female : 1940 Arrival Date: 06/16/2022 Time: 15:51 Bed 17 Private MD: Len Lopez E ED Physician Jerad Calixto HPI: 06/16 17:12 This 81 yrs old Female presents to ER via Ambulatory with complaints of High kb Blood Pressure. 17:12 The patient presents with a history of heart racing. Context: The symptoms occur at kb rest. Onset: The symptoms/episode began/occurred today. Duration: The patient or guardian reports a single episode, that is still ongoing. Modifying factors: The symptoms are aggravated by nothing. The symptoms are alleviated by nothing. Associated signs and symptoms: Pertinent positives: anxiety. Severity of symptoms: At their worst the symptoms were moderate in the emergency department the symptoms are unchanged. The patient has not experienced similar symptoms in the past. The patient has not recently seen a physician. Pt reports she started having an anxiety attack, felt palpitations. Checked her bp and it was 140/100 so she called her PCP and was told to come to the ER. Historical: - Allergies: 16:21 Codeine; ap3 - Home Meds: 16:21 aspirin 325 mg Oral tab 1 tab once daily [Active]; losartan 100 mg Oral tab 1 tab once ap3 daily [Active]; metoprolol succinate ER 50 mg daily [Active]; clopidogrel 75 mg Oral tab 1 tab once daily [Active]; rosuvastatin 10 mg Oral tab 1 tab once daily [Active]; escitalopram oxalate 10 mg oral tab [Active]; pantoprazole 40 mg oral grps [Active]; - PMHx: 16:21 CVA; Hyperlipidemia; Hypertension; ap3 - Immunization history:: Client reports receiving the 2nd dose of the Covid vaccine. - Social history:: Smoking status: Patient denies any tobacco usage or history of. ROS: 17:09 Constitutional: Negative for fever, chills, and weight loss. kb 17:09 Cardiovascular: Positive for palpitations. 17:09 Psych: Positive for anxiety. 17:11 All other systems are negative. kb Exam: 17:09 Constitutional: This is a well developed, well nourished patient who is awake, alert, kb and in no acute distress. Head/Face: Normocephalic, atraumatic. ENT: Moist Mucous membranes Chest/axilla: Normal chest wall appearance and motion. Respiratory: Respirations even and unlabored. No increased work of breathing. Talking in full sentences Abdomen/GI: Soft, non-tender. No distention Skin: Warm, dry with normal turgor. Normal color. MS/ Extremity: Pulses equal, no cyanosis. Neurovascular intact. Full, normal range of motion. Neuro: Awake and alert, GCS 15, oriented to person, place, time, and situation. Moves all extremities. Normal gait. Psych: Awake, alert, with orientation to person, place and time. Behavior, mood, and affect are within normal limits. 17:09 Cardiovascular: Rate: tachycardic, Rhythm: irregularly irregular, Pulses: no pulse deficits are appreciated. 17:09 ECG was reviewed by the Attending Physician. Vital Signs: 16:20 BP 138 / 91; Pulse 81; Resp 17; Temp 98.7; Pulse Ox 96% ; Weight 91.63 kg; Height 5 ft. ap3 6 in. (167.64 cm); 16:30 Pulse 139; ap3 17:04 Pulse 126; ap3 17:18 BP 131 / 90; Pulse 117; Resp 17; Pulse Ox 98% on R/A; ap3 17:49 Pulse 114; ap3 16:20 Body Mass Index 32.60 (91.63 kg, 167.64 cm) ap3 MDM: 16:19 Patient medically screened. kb 18:22 Data reviewed: vital signs, nurses notes. kb 18:28 Differential diagnosis: arrythmia, stress disorder. Consideration of kb Admission/Observation Patient was admitted/placed on observation. Management of patient was discussed with the following: Hospitalist: Freida accepts pt for admission. Counseling: I had a detailed discussion with the patient and/or guardian regarding: the historical points, exam findings, and any diagnostic results supporting the discharge/admit diagnosis, lab results, radiology results, the need for further work-up and treatment in the hospital. 06/16 16:31 Order name: Basic Metabolic Panel; Complete Time: 17:35 kb 06/16 16:31 Order name: CBC with Diff; Complete Time: 17:08 kb 06/16 16:31 Order name: Magnesium; Complete Time: 17:35 kb 06/16 16:31 Order name: NT PRO-BNP; Complete Time: 17:35 kb 06/16 16:31 Order name: Troponin HS; Complete Time: 17:35 kb 06/16 16:31 Order name: TSH; Complete Time: 17:35 kb 06/16 16:51 Order name: Protime (+inr); Complete Time: 18:46 kb 06/16 16:51 Order name: Ptt, Activated; Complete Time: 18:46 kb 06/16 16:52 Order name: SARS RAPID; Complete Time: 17:35 kb 06/17 04:09 Order name: CBC with Automated Diff; Complete Time: 04:16 EDMS 06/17 04:25 Order name: Basic Metabolic Panel EDMS 06/17 04:25 Order name: Phosphorus EDMS 06/17 04:25 Order name: Troponin High Sensitivity EDMS 06/17 04:25 Order name: Lipid Profile EDMS 06/16 16:31 Order name: XRAY Chest (1 view); Complete Time: 17:41 kb 06/16 16:31 Order name: EKG; Complete Time: 16:32 kb 06/16 16:31 Order name: Cardiac monitoring; Complete Time: 17:01 kb 06/16 16:31 Order name: EKG - Nurse/Tech; Complete Time: 17:01 kb 06/16 16:31 Order name: IV Saline Lock; Complete Time: 17:01 kb 06/16 16:31 Order name: Labs collected and sent; Complete Time: 17:01 kb 06/16 16:31 Order name: O2 Per Protocol; Complete Time: 16:37 kb 06/16 16:31 Order name: O2 Sat Monitoring; Complete Time: 16:37 kb 06/17 04:25 Order name: Magnesium EDMS 06/17 04:30 Order name: Hemoglobin A1c EDMS EC:09 Rate is 132 beats/min. Rhythm is irregularly irregular. QRS [place] is Normal. QRS kb interval is normal at 80 msec. QT interval is normal at 459 msec. Clinical impression: Atrial Fibrillation. Administered Medications: 16:54 Drug: Lopressor (metoprolol) 5 mg {Note: HR145.} Route: IVP; Site: right antecubital; ap3 16:59 Drug: Lopressor (metoprolol) 5 mg {Note: HR 125.} Route: IVP; Site: right antecubital; ap3 17:04 Drug: Lopressor (metoprolol) 5 mg {Note: HR 116.} Route: IVP; Site: right antecubital; ap3 18:47 Drug: Tylenol 1000 mg Route: PO; ap3 18:47 Drug: Lovenox (enoxaparin) 1 mg/kg Route: Sub-Q; Site: abdomen; ap3 18:56 Drug: Cardizem (diltiazem) 20 mg Route: IVP; Site: right antecubital; ap3 Disposition: 06/18 06:58 Co-signature as Attending Physician, Jerad Calixto MD I reviewed the patient's care rt provided by the Advanced Practice Provider and agree with the diagnosis and treatment plan. Disposition Summary: 06/16/22 18:29 Hospitalization Ordered Hospitalization Status: Observation kb Provider: Mukund Sanders Condition: Stable kb Problem: new kb Symptoms: are unchanged kb Bed/Room Type: Standard kb Location: [facility] ER HOLD(06/16/22 20:45) Room Assignment: ERHOLD-(06/16/22 20:45) cg Diagnosis - Unspecified atrial fibrillation - with RVR - new onset kb Forms: - Medication Reconciliation Form kb - SBAR form kb Signatures: Dispatcher [employer] EDPatricia Mays, ELVINC JOSE J-Kathrin Billings RN RN cg Claudette Saleem RN RN ap3 Chio Lange PAYolyC PAHellen sb4 Jerad Calixto MD MD rt Corrections: (The following items were deleted from the chart) 06/16 20:45 18:29 Telemetry/MedSurg (observation) kb 20:45 18:29 kb cg
[2022-06-16] MEDS ORDERED: ENOXAPARIN 100 MG/ML SYR SQ ONE (18:37)
[2022-06-16] MEDS ORDERED: ACETAMINOPHEN 500 MG TAB ONE (18:37)
--- NOTE | 2022-06-16 18:52 | P.HP ---
Certification for Inpatient Patient admitted to: Observation With expected LOS: <2 Midnights Patient will require the following post-hospital care: None Practitioner: I am a practitioner with admitting privileges, knowledge of patient current condition, hospital course, and medical plan of care. Services: Services provided to patient in accordance with Admission requirements found in Title 42 Section 412.3 of the Code of Federal Regulations Patient History Date of Service: 06/16/22 Primary Care Provider: Lucia Reason for admission: Atrial Fibrillation- New Onset History of Present Illness: Patient is a 81 year old female with past medical history of hypertension, hyperlipidemia, and CVA who presented to the emergency department with complaints of high blood pressure. States she thought she was experiencing some anxiety today and checked her blood pressure and noticed that it was elevated (140/100). She states that it was also causing her some chest discomfort with radiation down her left arm. Her PCP instructed her to come to the emergency department. Her EKG showed A. fib RVR rate of 134, she denies any history of atrial fibrillation. Her labs were unremarkable. She was given 3 rounds of 5mg IV lopressor without conversion to NSR. Rate is now consistently in the 110s. She also received therapeutic lovenox. Patient will be admitted for further management. Allergies codeine Allergy (Verified 04/24/21 13:44) Nausea/Vomiting Home medications list reviewed: Yes Home Medications: Amlodipine Besylate 1 tab PO DAILY 04/24/21 Aspirin [Aspirin EC 325 MG] 1 tab PO DAILY 04/24/21 Clopidogrel Bisulfate [Plavix*] 1 tab PO DAILY 04/24/21 Gabapentin 1 cap PO DAILY 04/24/21 Losartan Potassium 100 mg PO DAILY 04/24/21 Metoprolol Succinate 50 mg PO DAILY 04/24/21 Pantoprazole [Protonix Tab*] 1 tab PO DAILY 04/24/21 Rosuvastatin [Crestor] 10 mg PO BEDTIME 04/24/21 hydroCHLOROthiazide [Hydrochlorothiazide] 12.5 mg PO DAILY 04/24/21 - Past Medical/Surgical History Diabetic: No -: CVA -: Hypertension -: Hyperlipidemia -: Left hip replacement Psychosocial/ Personal History: Patient is . - Family History Mother -: Heart disease - Social History Smoking Status: Never smoker Alcohol use: No CD- Drugs: No Caffeine use: No Place of Residence: Home Review of Systems General: Other (Headache) Cardiovascular: Chest Pain, Palpitations Physical Examination - Physical Exam General: Alert, In no apparent distress HEENT: Atraumatic, PERRLA, EOMI, Sclerae nonicteric Neck: Supple, 2+ carotid pulse no bruit, No LAD, Without JVD or thyroid abnormality Respiratory: Clear to auscultation bilaterally, Normal air movement Cardiovascular: No edema, Normal pulses, Irregular heart rate/rhythm Gastrointestinal: Normal bowel sounds, No tenderness Musculoskeletal: No tenderness Integumentary: No rashes Neurological: Normal speech, Normal strength at 5/5 x4 extr, Normal tone, Normal affect - Studies Laboratory Data (last 24 hrs) 06/16/22 18:21: PT 11.0, INR 1.00, APTT 34.4 06/16/22 16:46: WBC 8.50, Hgb 15.1 H, Hct 43.6, Plt Count 275 06/16/22 16:46: Sodium 143, Potassium 3.7, BUN 16, Creatinine 0.69, Glucose 123 H, Magnesium 2.3 Assessment and Plan - Problems (Diagnosis) (1) Atrial fibrillation with rapid ventricular response Current Visit: Yes Status: Acute (2) Hypertension Current Visit: Yes Status: Chronic Qualifiers: Hypertension type: primary hypertension Qualified Code(s): I10 - Essential (primary) hypertension (3) Hyperlipidemia Current Visit: Yes Status: Chronic Qualifiers: Hyperlipidemia type: unspecified Qualified Code(s): E78.5 - Hyperlipidemia, unspecified (4) History of CVA (cerebrovascular accident) Current Visit: Yes Status: Chronic - Plan Patient is admitted for observation for new onset atrial fibrillation. Cardiology consult. Echo ordered. Monitor on telemetry. Patient is still in atrial fibrillation with fluctuating rate. May require additional medications and/or cardioversion. Trend troponin and check lipid panel and A1C. TSH within normal limits. Monitor and replete electrolytes per protocol. Reconcile and continue home medications. Lovenox for VTE prophylaxis. Full code. Discharge Plan: Home Plan to discharge in: 24 Hours - Advance Directives Does patient have a Living Will: No Does patient have a Durable POA for Healthcare: No - Code Status/Comfort Care Code Status Assessed: Yes Code Status: Full Code Physician Review: Patient Assessed, Agree with Above Assessment and Plan Critical Care: No Time Spent Managing Pts Care (In Minutes): 50
[2022-06-16] MEDS ORDERED: dilTIAZem HCL 25 MG/5 ML VIAL IV ONE (18:53)
[2022-06-16] MEDS ORDERED: ONDANSETRON 4 MG/2 ML VIAL IV PRN (20:07)
[2022-06-16] MEDS ORDERED: ACETAMINOPHEN 500 MG TAB PO PRN (20:07)
[2022-06-16 21:57] VITALS: BMI 32.5
[2022-06-16] MEDS ORDERED: DIPHENHYDRAMINE 12.5MG/5ML LIQ PO ONE (22:29)
[2022-06-16] MEDS ORDERED: DIPHENHYDRAMINE 12.5MG/5ML LIQ ONE (22:44)
[2022-06-16] MEDS ORDERED: DIGOXIN 0.25 MG/ML AMP IV ONE (22:44)
[2022-06-16] MEDS ORDERED: DIGOXIN 0.25 MG/ML AMP ONE (22:59)
[2022-06-17 04:08] LABS: Absolute Lymphocytes (CBC) 2.3 K/uL (0.7-4.9); Hematocrit 42.6 % (36.0-45.0); Lymphocytes % 30.8 % (15.3-44.8); MCV 89.6 fL (80-100); MPV 8.2 fL (7.6-11.3); RBC Red Blood Cell Count 4.75 M/uL (3.86-4.86)
[2022-06-17 04:24] LABS: Magnesium 2.3 mg/dL (1.6-2.4); Phosphorus 3.4 mg/dL (2.5-4.9); Potassium 4.2 mmol/L (3.5-5.1); Troponin High Sensitivity 27.4 pg/mL (<58.9)
[2022-06-17] MEDS ORDERED: ENOXAPARIN 40 MG/0.4 ML SQ ONE (08:02)
[2022-06-17 08:50] VITALS: O2SAT 100
[2022-06-17] MEDS ORDERED: ENOXAPARIN 40 MG/0.4 ML SQ SCH (09:00)
[2022-06-17 13:33] VITALS: BP 137/38; TEMP 98.7
--- NOTE | 2022-06-17 13:53 | P.DS ---
Admission Date: 06/16/22 Discharge Date: 06/17/22 Primary Care Provider: Lucia Disposition: ROUTINE DISCHARGE Discharge Condition: FAIR Reason for Admission: Atrial Fibrillation- New Onset - Problems (1) Atrial fibrillation with rapid ventricular response Current Visit: Yes Status: Acute (2) History of CVA (cerebrovascular accident) Current Visit: Yes Status: Chronic (3) Hyperlipidemia Current Visit: Yes Status: Chronic Qualifiers: Hyperlipidemia type: unspecified Qualified Code(s): E78.5 - Hyperlipidemia, unspecified (4) Hypertension Current Visit: Yes Status: Chronic Qualifiers: Hypertension type: primary hypertension Qualified Code(s): I10 - Essential (primary) hypertension Brief History of Present Illness: Patient is a 81 year old female with past medical history of hypertension, hyperlipidemia, and CVA who presented to the emergency department with complaints of high blood pressure. States she thought she was experiencing some anxiety today and checked her blood pressure and noticed that it was elevated (140/100). She states that it was also causing her some chest discomfort with radiation down her left arm. Her PCP instructed her to come to the emergency department. Her EKG showed A. fib RVR rate of 134, she denies any history of atrial fibrillation. Her labs were unremarkable. She was given 3 rounds of 5mg IV lopressor without conversion to NSR. Rate is now consistently in the 110s. She also received therapeutic lovenox. Patient will be admitted for further management. Hospital Course: Patient placed on observation on the medical floor. She spontaneously converted to sinus rhythm after multiple rounds of IV metoprolol. Echocardiogram was done and the result is pending. Patient vitals remained stable and remained in sinus rhythm with overall rate controlled heart rate. She was evaluated by cardiology Dr. Nieto recommended discharge with beta-darian and Eliquis anticoagulation. Patient is currently asymptomatic. Noted she is already on Toprol-XL which is continued on discharge. He has been on aspirin and Plavix. Aspirin is replaced with Eliquis to reduce the risk of bleeding with DAPT with DOAC. Patient will follow up with Dr. Davenport as outpatient. Vital Signs/Physical Exam: Temp Pulse Resp BP Pulse Ox 98.7 F 46 L 17 137/38 L 95 06/17/22 12:00 06/17/22 12:00 06/17/22 12:00 06/17/22 12:00 06/17/22 12:00 General: Alert, In no apparent distress, Oriented x3 HEENT: Mucous membr. moist/pink Neck: Supple, JVD not distended Respiratory: Clear to auscultation bilaterally Cardiovascular: No edema, Regular rate/rhythm, Normal S1 S2 Gastrointestinal: Normal bowel sounds, Soft and benign, Non-distended, No tenderness Musculoskeletal: No swelling Integumentary: No rashes Neurological: Normal strength at 5/5 x4 extr Laboratory Data at Discharge: WBC 7.50 K/uL (4.3-10.9) 06/17/22 03:06 Hgb 14.6 g/dL (12.0-15.0) 06/17/22 03:06 Hct 42.6 % (36.0-45.0) 06/17/22 03:06 Plt Count 269 K/uL (152-406) 06/17/22 03:06 PT 11.0 SECONDS (9.5-12.5) 06/16/22 18:21 INR 1.00 06/16/22 18:21 APTT 34.4 SECONDS (24.3-36.9) 06/16/22 18:21 Sodium 144 mmol/L (136-145) 06/17/22 03:06 Potassium 4.2 mmol/L (3.5-5.1) D 06/17/22 03:06 BUN 13 mg/dL (7-18) 06/17/22 03:06 Creatinine 0.77 mg/dL (0.55-1.02) 06/17/22 03:06 Glucose 110 mg/dL (74-106) H 06/17/22 03:06 Phosphorus 3.4 mg/dL (2.5-4.9) 06/17/22 03:06 Magnesium 2.3 mg/dL (1.6-2.4) 06/17/22 03:06 Triglycerides 108 mg/dL (<150) 06/17/22 03:06 Cholesterol 148 mg/dL (<200) 06/17/22 03:06 HDL Cholesterol 56 mg/dL (40-60) 06/17/22 03:06 Cholesterol/HDL Ratio 2.64 06/17/22 03:06 Home Medications: Clopidogrel Bisulfate [Plavix*] 1 tab PO DAILY 04/24/21 Losartan Potassium 100 mg PO DAILY 04/24/21 Metoprolol Succinate 50 mg PO DAILY 04/24/21 Pantoprazole [Protonix Tab*] 1 tab PO DAILY 04/24/21 Rosuvastatin [Crestor*] 10 mg PO BEDTIME 04/24/21 Escitalopram [Lexapro*] 10 mg PO DAILY 06/16/22 Apixaban [Eliquis] 5 mg PO BID #60 tab 06/17/22 New Medications: Apixaban [Eliquis] 5 mg PO BID #60 tab Diet: AHA Activity: Ad rocio Followup: Yobani Myers MD [Primary Care Provider] - 1-2 Weeks Ivan Davenport MD [ACTIVE - CAN ADMIT] - 1-2 Weeks
--- NOTE | 2022-06-17 18:04 | CON ---
Date of Consultation: 06/17/2022 Reason For Consultation: New onset of atrial fibrillation. History Of Present Illness: A 81-year-old female, past medical history of hypertension, dyslipidemia , CVA, presented to the emergency room because of high blood pressure. Claimed that she was feeling anxious and checked her blood pressure and was high and then upon arrival to the emergency room, she was found to have atrial fibrillation with rapid ventricular response. She had some chest discomfort with it, that is completely resolved. With IV Lopressor, she converted to sinus rhythm and she has been asymptomatic since. Past Medical History: As outlined above in the HPI. Medications: Refer to reconciliation sheet for detailed list. Allergies: CODEINE. Family History: No premature coronary artery disease or cancer. Social History: She does not smoke or drink. Does not use any drugs. Review of Systems: All systems reviewed and they were negative except what mentioned in HPI. Physical Examination: Vital Signs: Reviewed. Temperature is 98.7, heart rate 64, breathing at 19, blood pressure 125/98, saturating 98% on room air. General: Pleasant elderly female, in no apparent distress. Head and Neck: Pupils are equal, reactive to light. Intact eye movements. No JVD. No cervical lym phadenopathy. Neck is supple. Thyroid is not enlarged. Lungs: Clear to auscultation bilaterally. No rhonchi, wheezing, or crackles. No accessory muscle u se. Heart: Regular rate and rhythm. No extra sounds. Abdomen: Soft, nontender. Bowel sounds positive. No organomegaly. No masses or hernia. No rigidi ty or rebound. Extremities: No edema, clubbing, or cyanosis. Intact pulses. Skin: No rash. Neurologic: Alert, awake, oriented x3. No acute focal deficits appreciated. Lymph Nodes: No cervical or axillary lymphadenopathy. Investigations: TSH is 0.5, BUN 16, creatinine 0.69, hemoglobin is 14.6. Assessment And Recommendations: 1.New onset atrial fibrillation, converted to sinus rhythm. Start metoprolol 25 mg by mouth twice a day, Eliquis 5 mg twice a day, and she can be released home on that to follow up with me in the offi ce and we will plan for an echocardiogram. Since that she had chest pain and also the tachycardia, w hubert will plan for a stress test as an outpatient. 2.Chest pain. Cardiac enzymes are negative. This is probably due to the rapid atrial fibrillation; however, we will plan for outpatient stress test and echo as well. 3.Hypertension. Blood pressure is controlled. SR/MODL Voice ID: [id number] Report ID: [id number]
--- NOTE | 2022-06-18 07:37 | ECHO ---
HEIGHT: 5 ft 6 in WEIGHT: 202 lb 0.153 oz DATE OF STUDY: 06/17/[address]: Chio Lange 2-DIMENSIONAL: YES M.MODE: YES DOPPLER: YES COLOR FLOW: YES TDS: YES PORTABLE: YES DEFINITY: NO BUBBLE STUDY: NO DIAGNOSIS: ATRIAL FIBRILLATION CARDIAC HISTORY: CATHERIZATION: SURGERY: PROSTHETIC VALVE: PACEMAKER: MEASUREMENTS (cm) DIASTOLIC (NORMALS) SYSTOLIC (NORMALS) IVSd 0.9 (0.6-1.2) LA Diam 3.8 (1.9-4.0) LVEF 65% LVIDd 4.3 (3.5-5.7) LVIDs 2.8 (2.0-3.5) %FS 35% LVPWd 0.9 (0.6-1.2) Ao Diam 2.6 (2.0-3.7) 2 DIMENSIONAL ASSESSMENT: RIGHT ATRIUM: NORMAL LEFT ATRIUM: ENLARGED RIGHT VENTRICLE: NORMAL LEFT VENTRICLE: NORMAL TRICUSPID VALVE: MILD TR MITRAL VALVE: MILD MR PULMONIC VALVE: NORMAL AORTIC VALVE: NORMAL PERICARDIAL EFFUSION: NONE AORTIC ROOT: NORMAL LEFT VENTRICULAR WALL MOTION: NORMAL. DOPPLER/COLOR FLOW: SEE BELOW. COMMENTS: 1. NORMAL LEFT VENTRICULAR EJECTION FRACTION 60-65% WITH NORMAL WALL MOTION. 2. MILD MITRAL REGURGITATION. 3. MILD TRICUSPID REGURGITATION. 4. MILD LEFT ATRIAL ENLARGEMENT. TECHNOLOGIST: Ria STEVE
--- NOTE | 2022-06-18 13:22 | EKG ---
Test Date: 2022-06-16 Test Time: 16:46:46 Art Therapist: MIGUEL MEASUREMENT RESULTS: Intervals: Rate: 132 SD: QRSD: 80 QT: 310 QTc: 459 [place]: P: SD: QRS: -53 T: 62 INTERPRETIVE STATEMENTS: Atrial fibrillation with rapid ventricular response Left axis deviation Possible Anterior infarct, age undetermined Abnormal ECG Compared to ECG 04/24/2021 14:13:09 Left-axis deviation now present Sinus rhythm no longer present Fusion complex(es) no longer present Myocardial infarct finding still present Electronically Signed On 06-18-22 13:17:23 HYDRO ELECTRIC STATION OPERATOR by Ivan Davenport
== END 2022-06-17 14:15 | disposition home or self-care (01) ==
LOC: ER 15:48 → ERHOLD 18:45
PROVIDERS: ADMIT Internal Medicine; ATTEND Internal Medicine
DX: I48.20 Chronic atrial fibrillation, unspecified (principal); R07.9 Chest pain, unspecified; I10 Essential (primary) hypertension; E78.5 Hyperlipidemia, unspecified; Z86.73 Personal history of transient ischemic attack (TIA), and cerebral infarction without residual deficits; Z88.6 Allergy status to analgesic agent; Z20.822 Contact with and (suspected) exposure to COVID-19; Z82.49 Family history of ischemic heart disease and other diseases of the circulatory system
CPT/HCPCS: 93306; 85025 ×2; 80048 ×2; 36415; 83735 ×2; 84100; 85610; 80061; 85730; 84443; 83036; 84484 ×2; 83880; 71045; 87811; J1160; Q0163; J1650 ×2; 93005; G0378

== ENCOUNTER 2024-02-03 10:09 | Observation (INO) | payer OTHER ==
[2024-02-03] MEDS ORDERED: NA CHLORIDE 0.9% 500 ML ONE (10:30)
[2024-02-03 10:40] LABS: Absolute Eosinophils 0.1 K/uL (0-0.5); Absolute Lymphocytes (CBC) 1.2 K/uL (0.7-4.9); Absolute Monocytes 0.5 K/uL (0.1-1.3); Absolute Neutrophil 5.7 K/uL (1.8-8.0); Basophils % 0.6 % (0-1.3); Eosinophils % 1.3 % (0-4.4); Hematocrit 44.8 % (36.0-45.0); Hemoglobin 14.9 g/dL (12.0-15.0); Lymphocytes % 15.9 % (15.3-44.8); MCH 30.4 pg (27.0-35.0); MCHC 33.3 g/dL (32.0-36.0); MCV 91.1 fL (80-100); Neutrophils % 76.2 % (41.7-73.7); Platelets 316 thou/uL (152-406); RBC Red Blood Cell Count 4.91 M/uL (3.86-4.86); Red Cell Distribution Width 13.3 % (12.1-15.2)
[2024-02-03] MEDS ORDERED: METOPROLOL TARTRATE 5 MG/5 ML INJ IV ONE (10:41)
[2024-02-03] MEDS ORDERED: DIGOXIN 0.25 MG/ML AMP ONE (10:41)
[2024-02-03] MEDS ORDERED: MAGNESIUM SULFATE 1 gm IVPB 1 GM/100 ML BAG IV ONE (10:41)
[2024-02-03] MEDS ORDERED: FAMOTIDINE 20 MG/2 ML VIAL IV ONE (10:41)
[2024-02-03 10:53] LABS: PT Prothrombin Time 14.5 SECONDS (9.4-12.5); Protime INR 1.3
[2024-02-03 10:59] LABS: ALT/SGPT 23 U/L (13-56); AST/SGOT 14 U/L (15-37); Albumin 3.6 g/dL (3.4-5.0); Alkaline Phosphatase 114 U/L (45-117); Anion Gap 7.6 mEq/L (5.0-15.0); BUN Blood Urea Nitrogen 15 mg/dL (7-18); Bicarbonate 28 mEq/L (21-32); Bilirubin Total 0.5 mg/dL (0.2-1.0); Globulin 3.7 g/dL (2.3-3.5); Glomerular Filtration Rate 85 ml/min (=/>90); Glucose Level 169 mg/dL (74-106); Lipase 32 U/L (13-75); Magnesium 2.1 mg/dL (1.6-2.4); NT PRO-BNP 379 pg/mL (<450); Potassium 3.6 mEq/L (3.5-5.1); Protein, Total 7.3 g/dL (6.4-8.2); Sodium Level 143 mEq/L (136-145); Troponin High Sensitivity 14.3 pg/mL (<58.9)
[2024-02-03 11:00] LABS: Bilirubin Direct < 0.2 mg/dL (0-0.2); Bilirubin Indirect, Calculated 0.3 mg/dL (0.2-0.8)
[2024-02-03 11:04] LABS: Specific Gravity < 1.005 (1.005-1.030); Sqamous Epithelial <5 /HPF (None Seen); Urine Bacteria <20 /HPF (<20); Urine Bilirubin NEGATIVE (Negative); Urine Blood Negative (Negative); Urine Clarity Clear (Clear); Urine Color Colorless (Yellow); Urine Culture Reflex Order NOT NEEDED; Urine Glucose NEGATIVE (Negative); Urine Ketones NEGATIVE (Negative); Urine Microscopic Reflex YN ORDER UMIC; Urine Nitrite NEGATIVE (Negative); Urine Protein NEGATIVE (Negative); Urine RBC None Seen /HPF (None Seen); Urine Urobilinogen Normal (Normal); Urine WBC <5 /HPF (<5); Urine pH 6.5 (5.0-7.0)
--- NOTE | 2024-02-03 11:09 | RAD REPORT ---
EXAM DESCRIPTION: Dilip Single View02/03/2024 11:03 am CLINICAL HISTORY: Chest pain COMPARISON: 2022 FINDINGS: The lungs appear clear of acute infiltrate. The heart is normal size IMPRESSION: No acute abnormalities displayed
--- NOTE | 2024-02-03 11:40 | EDPHYS ---
Physician Documentation [facility] Name: Deisy Yusuf Age: 83 yrs Sex: Female : 1940 Arrival Date: 02/03/2024 Time: 10: Bed 4 Private MD: ED Physician Live Humphries HPI: 02/02 11:29 This 83 yrs old Female presents to ER via Wheelchair with complaints of dariel Abnormal Lab Results - EKG. 11:29 The patient or guardian reports chest pain that is located primarily in the substernal dariel area. Onset: just prior to arrival, this morning. The patient presents with a history of irregular heart beat, heart racing. Context: The symptoms occur at rest, with light activity. Onset: The symptoms/episode began/occurred this morning, today. Duration: The patient or guardian reports a single episode, that is still ongoing, and unchanged. Modifying factors: The symptoms are aggravated by nothing. The symptoms are alleviated by nothing. Associated signs and symptoms: Pertinent positives: chest pain, SOB. Historical: - Allergies: 10:36 Codeine; rs5 - PMHx: 10:36 CVA; Atrial fibrillation; Hyperlipidemia; Hypertension; rs5 - PSHx: 10:36 hip; rs5 - Immunization history:: Adult Immunizations up to date. - Infectious Disease History:: Denies. - Social history:: Smoking status: Patient denies any tobacco usage or history of. - Family history:: not pertinent. ROS: 11:29 Constitutional: Negative for fever, chills, and weight loss, Eyes: Negative for injury, dariel pain, redness, and discharge, ENT: Negative for injury, pain, and discharge, Neck: Negative for injury, pain, and swelling, Respiratory: Negative for shortness of breath, cough, wheezing, and pleuritic chest pain, Abdomen/GI: Negative for abdominal pain, nausea, vomiting, diarrhea, and constipation, Back: Negative for injury and pain, : Negative for injury, bleeding, discharge, and swelling, MS/Extremity: Negative for injury and deformity, Skin: Negative for injury, rash, and discoloration, Neuro: Negative for headache, weakness, numbness, tingling, and seizure, Psych: Negative for depression, anxiety, suicide ideation, homicidal ideation, and hallucinations, Allergy/Immunology: Negative for hives, rash, and allergies, Endocrine: Negative for neck swelling, polydipsia, polyuria, polyphagia, and marked weight changes, Hematologic/Lymphatic: Negative for swollen nodes, abnormal bleeding, and unusual bruising, 11:29 Cardiovascular: Positive for chest pain, palpitations, Exam: 11:33 Constitutional: This is a well developed, well nourished patient who is awake, alert, dariel and in no acute distress. Head/Face: Normocephalic, atraumatic. Eyes: Pupils equal round and reactive to light, extra-ocular motions intact. Lids and lashes normal. Conjunctiva and sclera are non-icteric and not injected. Cornea within normal limits. Periorbital areas with no swelling, redness, or edema. ENT: Nares patent. No nasal discharge, no septal abnormalities noted. Tympanic membranes are normal and external auditory canals are clear. Oropharynx with no redness, swelling, or masses, exudates, or evidence of obstruction, uvula midline. Mucous membranes moist. Neck: Trachea midline, no thyromegaly or masses palpated, and no cervical lymphadenopathy. Supple, full range of motion without nuchal rigidity, or vertebral point tenderness. No Meningismus. Chest/axilla: Normal chest wall appearance and motion. Nontender with no deformity. No lesions are appreciated. Respiratory: Lungs have equal breath sounds bilaterally, clear to auscultation and percussion. No rales, rhonchi or wheezes noted. No increased work of breathing, no retractions or nasal flaring. Abdomen/GI: Soft, non-tender, with normal bowel sounds. No distension or tympany. No guarding or rebound. No evidence of tenderness throughout. Back: No spinal tenderness. No costovertebral tenderness. Full range of motion. Female : Normal external genitalia. Skin: Warm, dry with normal turgor. Normal color with no rashes, no lesions, and no evidence of cellulitis. MS/ Extremity: Pulses equal, no cyanosis. Neurovascular intact. Full, normal range of motion. Neuro: Awake and alert, GCS 15, oriented to person, place, time, and situation. Cranial nerves II-XII grossly intact. Motor strength 5/5 in all extremities. Sensory grossly intact. Cerebellar exam normal. Normal gait. Psych: Awake, alert, with orientation to person, place and time. Behavior, mood, and affect are within normal limits. 11:33 Cardiovascular: Rate: tachycardic, actual rate is 150 bpm, Rhythm: irregularly irregular, Pulses: Pulses are 4+ in bilateral radial, brachial, femoral, popliteal, posterior tibial and and dorsalis pedis arteries.. Heart sounds: normal, Edema: is not appreciated, JVD: is not appreciated, 11:33 ECG was reviewed by the Attending Physician. 12:05 ECG was reviewed by the Attending Physician. dariel Vital Signs: 10:17 BP 165 / 79; Pulse 139; Resp 18; Temp 98(O); Pulse Ox 96% on R/A; rs5 10:48 BP 161 / 93; Pulse 114; Resp 18; Pulse Ox 97% on R/A; rs5 11:04 BP 158 / 81; Pulse 95; Resp 17; Pulse Ox 98% on R/A; rs5 12:04 BP 145 / 81; Pulse 65; Resp 17; Pulse Ox 98% on R/A; rs5 13:08 BP 150 / 84; Pulse 60; rs5 13:19 BP 139 / 68; Pulse 66; Resp 12; Temp 98; Pulse Ox 97% on R/A; tm6 MDM: 10:19 Patient medically screened. dariel 11:36 Differential diagnosis: abnormal EKG, acute myocardial infarction, acute pericarditis, dariel anxiety, arrythmia, dehydration, esophagitis, gastritis, pancreatitis, peptic ulcer disease, pericarditis, pleurisy, pneumothorax, pulmonary embolus, unstable angina. HEART Score: History: Moderately Suspicious (1), ECG: Non specific repolarization disturbance / LBTB / PM (1), Age: > or = 65 years (2), Risk Factors: > or = 3 Risk factors for atherosclerotic disease (2), [Hypercholesterolemia] [Hypertension] [+ Family HX] [Obesity] Troponin: < or = 1 x Normal Limit (0). The patient was not given aspirin in the Emergency Department. Not indicated due to patient's past medical history. HERB Risk Score: 1 - patient's age is greater or equal to 65 years, 1 - Three or more CAD risk factors, 1- Known CAD, 1 - Recent [<24hrs] Severe Angina, TOTAL SCORE = 4. Data reviewed: vital signs, nurses notes, lab test result(s), EKG, radiologic studies, plain films. Consideration of Admission/Observation Patient was admitted/placed on observation. Escalation of care including admission/observation considered. I considered the following discharge prescriptions or medication management in the emergency department Medications were administered in the Emergency Department. See MAR. Independent interpretation of the following test(s) in the Emergency Department EKG: See my EKG interpretation above. Test considered but Not performed: MRI: no mri chest. 02/02 10:17 Order name: Basic Metabolic Panel; Complete Time: 11:24 02/02 10:17 Order name: CBC with Diff; Complete Time: 11:24 02/02 10:17 Order name: LFT's; Complete Time: 11:24 02/02 10:17 Order name: Magnesium; Complete Time: 11:24 02/02 10:17 Order name: NT PRO-BNP; Complete Time: 11:24 02/02 10:17 Order name: PT-INR; Complete Time: 11:24 02/02 10:17 Order name: Troponin HS; Complete Time: 11:24 02/02 10:17 Order name: Lipase; Complete Time: 11:24 02/02 10:18 Order name: Urinalysis w/ reflexes; Complete Time: 11:24 02/02 10:25 Order name: TSH; Complete Time: 13:03 02/02 12:04 Order name: Basic Metabolic Panel EDAL 02/02 12:04 Order name: Basic Metabolic Panel EDAL 02/02 12:04 Order name: CBC with Automated Diff EDAL 02/02 12:04 Order name: CBC with Automated Diff EDAL 02/02 12:04 Order name: Troponin High Sensitivity EDAL 02/02 12:04 Order name: Troponin High Sensitivity EDAL 02/02 12:04 Order name: Troponin High Sensitivity EDAL 02/02 12:04 Order name: Troponin High Sensitivity EDAL 02/02 10:17 Order name: XRAY Chest (1 view); Complete Time: 11:24 02/02 11:09 Order name: Echo with Doppler EDAL 02/02 11:24 Order name: EKG; Complete Time: 11:25 02/02 10:17 Order name: Cardiac monitoring; Complete Time: 10:38 02/02 10:17 Order name: EKG - Nurse/Tech; Complete Time: 10:38 02/02 10:17 Order name: IV Saline Lock; Complete Time: 10:38 [facility] 02/02 10:17 Order name: Labs collected and sent; Complete Time: 10:38 [facility] 02/02 10:17 Order name: O2 Per Protocol; Complete Time: : [facility] 02/02 10:17 Order name: O2 Sat Monitoring; Complete Time: 10:39 [facility] 02/02 11:24 Order name: EKG - Nurse/Tech; Complete Time: 11:52 [facility] EC:33 Rate is 145 beats/min. Rhythm is irregularly irregular. QRS [place] is Normal. NC interval dariel is normal. QRS interval is normal. QT interval is normal. No Q waves. T waves are Normal. No ST changes noted. Clinical impression: Atrial Fibrillation. Interpreted by me. Reviewed by me. 12:05 Rate is 77 beats/min. Rhythm is regular. QRS [place] is Normal. NC interval is normal. QRS dariel interval is normal. QT interval is normal. No Q waves. T waves are Normal. No ST changes noted. Clinical impression: Normal ECG and No evidence of ischemia. Interpreted by me. Reviewed by me. Administered Medications: 10:21 Drug: NS 0.9% IV 500 ml IV at bolus once Route: IV; Rate: bolus; Site: right rs5 antecubital; 12:08 Follow up: Response: No adverse reaction; IV Status: Completed infusion; IV Intake: tm6 500ml 10:40 Drug: Metoprolol IVP 5 mg IVP once; Hold for SBP <100 or HR <60. Route: IVP; Site: rs5 right antecubital; 12:08 Follow up: Response: No adverse reaction tm6 10:45 Drug: Metoprolol IVP 5 mg IVP once; Hold for SBP <100 or HR <60. Route: IVP; Site: rs5 right antecubital; 12:07 Follow up: Response: No adverse reaction tm6 10:47 Drug: Famotidine IVP 20 mg IVP once; dilute with 10 mL 0.9% NaCl; give over 2 minutes rs5 Route: IVP; Site: right antecubital; 12:07 Follow up: Response: No adverse reaction tm6 10:47 Drug: Magnesium Sulfate IVPB 1 grams IVPB once over 1 hrs Route: IVPB; Infused Over: 1 rs5 hrs; Site: right antecubital; 12:07 Follow up: Response: No adverse reaction; IV Status: Completed infusion tm6 10:57 Drug: Digoxin IVP 0.5 mg IVP once Route: IVP; Site: right antecubital; rs5 12:07 Follow up: Response: No adverse reaction tm6 Disposition Summary: 02/03/24 11:40 Hospitalization Ordered Notes: Hospitalization Status: Observation dariel Provider: Alis Ren cha Location: Telemetry/MedSurg (observation) dariel Condition: Stable dariel Problem: new dariel Symptoms: have improved dariel Bed/Room Type: Standard dariel Room Assignment: 231(02/03/24 12:14) eb Diagnosis - Chest pain, unspecified dariel - Paroxysmal atrial fibrillation - with RVR dariel Forms: - Medication Reconciliation Form dariel - SBAR form dariel - Leadership Thank You Letter dariel Signatures: Dispatcher [employer] EDMS Live Humphries MD MD cha Waters, Shelly, KNIFE SETTER ASSEMBLER-C KNIFE SETTER ASSEMBLER-Josiasw Yessenia Latham Ricky, RN RN rs5 Josse Gross RN tm6 Corrections: (The following items were deleted from the chart) 10:18 10:18 BASIC METABOLIC PANEL+C.LAB.BRZ ordered. EDMS EDMS 10:18 10:18 CBC+H.LAB.BRZ ordered. EDMS EDMS 10:18 10:18 HEPATIC FUNCTION+C.LAB.BRZ ordered. EDMS EDMS 10:18 10:18 MAGNESIUM+C.LAB.BRZ ordered. EDMS EDMS 10:18 10:18 PROBNP+C.LAB.BRZ ordered. EDMS EDMS 10:18 10:18 PROTIME (+INR)+COAG.LAB.BRZ ordered. EDMS EDMS 10:18 10:18 Troponin High Sensitivity+C.LAB.BRZ ordered. EDMS EDMS 10:18 10:18 LIPASE+C.LAB.BRZ ordered. EDMS EDMS 10:18 10:18 Chest Single View+RAD.RAD.BRZ ordered. EDMS EDMS 10:18 10:18 Urinalysis+U.LAB.BRZ ordered. EDMS EDMS 12:14 11:40 dariel eb
--- NOTE | 2024-02-03 11:40 | ER ---
Nurse's Notes [facility] Name: Deisy Yusuf Age: 83 yrs Sex: Female : 1940 Arrival Date: 02/03/2024 Time: 10:09 Bed 4 Private MD: Diagnosis: Chest pain, unspecified;Paroxysmal atrial fibrillation-with RVR Presentation: 02/02 10:17 Chief complaint: Patient states: My primary care physician instructed me to go to the 5 ER because I had an abnormal EKG and my left arm feels numb. 10:17 Coronavirus screen: At this time, the client does not indicate any symptoms associated rs with coronavirus-19. Ebola Screen: No symptoms or risks identified at this time. Initial Sepsis Screen: Does the patient meet any 2 criteria? HR > 90 bpm. Yes Does the patient have a suspected source of infection? No. Patient's initial sepsis screen is negative. Risk Assessment: Do you want to hurt yourself or someone else? Patient reports no desire to harm self or others. Onset of symptoms was February 03, 2024. 10:17 Method Of Arrival: Wheelchair rs5 10:17 Acuity: KIRSTIN 2 rs5 Triage Assessment: 10:36 General: Appears in no apparent distress. uncomfortable, Behavior is calm, cooperative. rs5 Pain: Denies pain. Historical: - Allergies: 10:36 Codeine; rs5 - PMHx: 10:36 CVA; Atrial fibrillation; Hyperlipidemia; Hypertension; rs5 - PSHx: 10:36 hip; rs5 - Immunization history:: Adult Immunizations up to date. - Infectious Disease History:: Denies. - Social history:: Smoking status: Patient denies any tobacco usage or history of. - Family history:: not pertinent. Screenin:36 [facility] ED Fall Risk Assessment (Adult) History of falling in the last 3 months, rs5 including since admission No falls in past 3 months (0 pts) Confusion or Disorientation No (0 pts) Intoxicated or Sedated No (0 pts) Impaired Gait No (0 pts) Mobility Assist Device Used No (0 pt) Altered Elimination No (0 pt) Score/Fall Risk Level 0 - 2 = Low Risk Oriented to surroundings, Maintained a safe environment. Abuse screen: Denies threats or abuse. Nutritional screening: No deficits noted. Tuberculosis screening: No symptoms or risk factors identified. Assessment: 10:17 General: Appears in no apparent distress. uncomfortable, Behavior is calm, cooperative. rs5 Pain: Denies pain. Neuro: Level of Consciousness is awake, alert, obeys commands, Oriented to person, place, time, situation. Cardiovascular: Reports since numbness in left arm Patient's skin is warm and dry. Rhythm is atrial fibrillation. Respiratory: Airway is patent Respiratory effort is even, unlabored, Respiratory pattern is regular, symmetrical. GI: Abdomen is round non-distended, Abd is soft and non tender X 4 quads. : No signs and/or symptoms were reported regarding the genitourinary system. EENT: No signs and/or symptoms were reported regarding the EENT system. Derm: Skin is intact, Skin is pink, warm \T\ dry. Musculoskeletal: Range of motion: intact in all extremities. 10:57 Reassessment: Patient and/or family updated on plan of care and expected duration. Pain rs5 level reassessed. Patient is alert, oriented x 3, equal unlabored respirations, skin warm/dry/pink. 12:05 Reassessment: Patient and/or family updated on plan of care and expected duration. Pain rs5 level reassessed. Patient is alert, oriented x 3, equal unlabored respirations, skin warm/dry/pink. Patient denies pain at this time. Patient states feeling better. Patient states symptoms have improved. Cardiovascular: Denies chest pain. 13:07 Reassessment: No changes from previously documented assessment. rs5 Vital Signs: 10:17 BP 165 / 79; Pulse 139; Resp 18; Temp 98(O); Pulse Ox 96% on R/A; rs5 10:48 BP 161 / 93; Pulse 114; Resp 18; Pulse Ox 97% on R/A; rs5 11:04 BP 158 / 81; Pulse 95; Resp 17; Pulse Ox 98% on R/A; rs5 12:04 BP 145 / 81; Pulse 65; Resp 17; Pulse Ox 98% on R/A; rs5 13:08 BP 150 / 84; Pulse 60; rs5 13:19 BP 139 / 68; Pulse 66; Resp 12; Temp 98; Pulse Ox 97% on R/A; tm6 ED Course: 10:13 Patient arrived in ED. mg5 10:15 Live Humphries MD is Attending Physician. dariel 10:20 Inserted saline lock: 20 gauge in right antecubital area, using aseptic technique. rs5 Blood collected. Flushed with 10 mL NS. 10:29 Christian Alston, RN is Primary Nurse. rs5 10:35 Triage completed. rs5 10:36 No provider procedures requiring assistance completed. rs5 10:36 Patient has correct armband on for positive identification. Placed in gown. Bed in low rs5 position. Call light in reach. Side rails up X2. 10:36 Arm band placed on right wrist. tm6 10:36 Client placed on continuous cardiac and pulse oximetry monitoring. NIBP monitoring tm6 applied. hat parts cutter machine on. Pulse ox on. NIBP on. Warm blanket given. Pillow given. 11:04 XRAY Chest (1 view) In Process Unspecified. EDMS 11:39 Alis Ren MD is Hospitalizing Provider. [facility] 12:15 1215 CM met with and her sister at the bedside in the ED exam room. Patient ane identified by name and . Demographic sheet confirmed and changes sent to appropriate personnel. states she lives in a single story home, with her Isidro. She states that prior to admission, she performs ADLs independently and without physical limitation. She reports that her home is equipped with a ramp to enter home .She explains that sometimes if she sits too long, she will get pain in her right leg and so she does occasionally uses a cane. No HH, home oxygen or other medical services at this time. No MPOA in place at this time .Her preferred plan is to return home upon discharge, and states her son Topher will transport her home. CM team will continue to follow and coordinate care. 13:09 Patient admitted, IV remains in place. rs5 13:20 Provided Education on: need for admit. tm6 Administered Medications: 10:21 Drug: NS 0.9% IV 500 ml IV at bolus once Route: IV; Rate: bolus; Site: right rs5 antecubital; 12:08 Follow up: Response: No adverse reaction; IV Status: Completed infusion; IV Intake: tm6 500ml 10:40 Drug: Metoprolol IVP 5 mg IVP once; Hold for SBP <100 or HR <60. Route: IVP; Site: rs5 right antecubital; 12:08 Follow up: Response: No adverse reaction tm6 10:45 Drug: Metoprolol IVP 5 mg IVP once; Hold for SBP <100 or HR <60. Route: IVP; Site: rs5 right antecubital; 12:07 Follow up: Response: No adverse reaction tm6 10:47 Drug: Famotidine IVP 20 mg IVP once; dilute with 10 mL 0.9% NaCl; give over 2 minutes rs5 Route: IVP; Site: right antecubital; 12:07 Follow up: Response: No adverse reaction tm6 10:47 Drug: Magnesium Sulfate IVPB 1 grams IVPB once over 1 hrs Route: IVPB; Infused Over: 1 rs5 hrs; Site: right antecubital; 12:07 Follow up: Response: No adverse reaction; IV Status: Completed infusion tm6 10:57 Drug: Digoxin IVP 0.5 mg IVP once Route: IVP; Site: right antecubital; rs5 12:07 Follow up: Response: No adverse reaction tm6 Medication: 10:37 VIS not applicable for this client. rs5 Intake: 12:08 IV: 500ml; Total: 500ml. tm6 Outcome: 11:40 Decision to Hospitalize by Provider. dariel 13:09 Admitted to Med/surg accompanied by tech, on monitor, rs5 13:09 Condition: stable 13:09 Instructed on the need for admit, Demonstrated understanding of instructions, 13:21 Patient left the ED. tm6 Signatures: Dispatcher [employer] EDHI Live Humphries MD MD cha Sotelo, Ricky RN RN rs5 Odalis Bourgeois [facility] Josse Gross RN RN tm6 Dahiana Canchola RN RN ane Corrections: (The following items were deleted from the chart) 10:36 10:17 Chief complaint: Patient states: My primary care physician instructed me to go to [facility] the ER because I had an abnormal EKG rs5
[2024-02-03] MEDS ORDERED: ACETAMINOPHEN 500 MG TAB PO PRN (11:59)
--- NOTE | 2024-02-03 13:05 | P.HP ---
Certification for Inpatient Patient admitted to: Observation With expected LOS: <2 Midnights Patient will require the following post-hospital care: None Practitioner: I am a practitioner with admitting privileges, knowledge of patient current condition, hospital course, and medical plan of care. Services: Services provided to patient in accordance with Admission requirements found in Title 42 Section 412.3 of the Code of Federal Regulations <Freya Blake - Last Filed: 02/03/24 13:05> Patient History Date of Service: 02/03/24 Reason for admission: A-fib RVR History of Present Illness: Mrs. Yusuf is an 83-year-old female with a past medical history of a fib, hypertension, hyperlipidemia, and remote CVA. She states her stresses her out and she had an episode of a "funny feeling" to her left arm. She states her made her even more anxious so she presented to the emergency department. Her initial rhythm was A-fib with rapid ventricular response, with minimal treatment in the emergency department she converted to normal sinus rhythm and is currently without complaint. The hospitalist program was asked to admit the patient for echo and consultation to cardiology. Labs: TSH 0.63, CBC and Chem-7 unremarkable, INR 1.3, troponin 14.3 Imaging: Chest x-ray with no acute abnormalities displayed Home medications list reviewed: Yes - Past Medical/Surgical History Has patient received pneumonia vaccine in the past: Yes Diabetic: No -: CVA -: Hypertension -: Hyperlipidemia -: Left hip replacement Psychosocial/ Personal History: Patient is . - Family History Mother -: Heart disease - Social History Smoking Status: Unknown if ever smoked Alcohol use: No CD- Drugs: No Caffeine use: No Place of Residence: Home <Freya Blake Collin - Last Filed: 02/03/24 13:05> Date of Service: 02/03/24 <Alis Ren - Last Filed: 02/03/24 18:46> Allergies codeine Allergy (Verified 04/24/21 13:44) Nausea/Vomiting Home Medications: Losartan Potassium 100 mg PO DAILY 04/24/21 Metoprolol Succinate 50 mg PO DAILY 04/24/21 Rosuvastatin [Crestor*] 20 mg PO BEDTIME 04/24/21 Apixaban [Eliquis] 5 mg PO BID #60 tab 06/17/22 Carboxymethylcellulos/Glycerin [Refresh Optive Eye Drops] 1 drop OP DAILY 09/07/22 Latanoprost/Pf [Latanoprost 0.005% Eye Drop] 1 drop OP BEDTIME 09/07/22 Amiodarone HCl [Cordarone*] 400 mg PO BID #60 tab 09/08/22 Mirabegron [Myrbetriq] 25 mg PO DAILY 02/03/24 Review of Systems 10-point ROS is otherwise unremarkable General: As per HPI Musculoskeletal: Other (Left arm felt "funny") <Freya Blake - Last Filed: 02/03/24 13:05> Physical Examination - Physical Exam General: Alert, In no apparent distress, Oriented x3 HEENT: Atraumatic, Normocephalic Neck: Supple Respiratory: Clear to auscultation bilaterally Cardiovascular: Normal pulses, Regular rate/rhythm, Normal S1 S2 Capillary refill: <2 Seconds Gastrointestinal: Normal bowel sounds Musculoskeletal: No clubbing Integumentary: No rashes Neurological: Normal strength at 5/5 x4 extr, Normal tone, Normal affect Lymphatics: No axilla or inguinal lymphadenopathy External genitalia: Deferred Rectal: Deferred - Studies Laboratory Data (last 24 hrs) 02/03/24 02/03/24 02/03/24 10:30 10:30 10:30 WBC 7.50 Hgb 14.9 Hct 44.8 Plt Count 316 PT 14.5 H INR 1.30 Sodium 143 Potassium 3.6 BUN 15 Creatinine 0.71 Glucose 169 H Magnesium 2.1 Total Bilirubin 0.5 AST 14 L ALT 23 Alkaline Phosphatase 114 Lipase 32 <Freya Blake - Last Filed: 02/03/24 13:05> - Studies Laboratory Data (last 24 hrs) 02/03/24 02/03/24 02/03/24 10:30 10:30 10:30 WBC 7.50 Hgb 14.9 Hct 44.8 Plt Count 316 PT 14.5 H INR 1.30 Sodium 143 Potassium 3.6 BUN 15 Creatinine 0.71 Glucose 169 H Magnesium 2.1 Total Bilirubin 0.5 AST 14 L ALT 23 Alkaline Phosphatase 114 Lipase 32 <Alis Ren - Last Filed: 02/03/24 18:46> Assessment and Plan - Plan Paroxysm of atrial fibrillation with RVR History of atrial fibrillation. On Eliquis Plan: 1. Continue medications for rate control (patient takes metoprolol 50 mg p.o. daily, 1 dose of digoxin was given in the emergency department and patient converted to normal sinus rhythm) 2. Anticoagulation 3. Echocardiogram 4. Cardiology consultation 5. Repeat chest x-ray 6. GI and DVT prophylaxis Discharge Plan: Home Plan to discharge in: 24 Hours - Advance Directives Does patient have a Living Will: No Does patient have a Durable POA for Healthcare: No <Freya Blake - Last Filed: 02/03/24 13:05> - Plan Pt seen and examined. I agree with the note by the PRODUCT COMMUNICATIONS MANAGER. Pt is an 83yo female with past medical history of A. fib, hypertension, hyperlipidemia, and remote CVA who presents with funny sensation in her left arm. She reports a lot of stress at home. On admission, EKG showed A. fib with RVR. Lab studies show wbc 7.5, Hgb 14.7, K 3.6, Cr 0.71, troponin 29.4 <- 14.3. TSH 0.63. CXR is unremarkable. At bedside, pt is in NAD. A/P: Chest pain: Likely due to stress at home. Troponin is 29.4 <- 14.3. Will trend troponin Q6h. Continue PEGGY therapy. Will f/u Echo Paroxysmal A. fib with RVR: Now in NSR. Will continue telemetry, metoprolol and AC. Consulted cardiology. Htn: Continue metoprolol. DVT ppx: SCD code: full <Alis Ren - Last Filed: 02/03/24 18:46>
[2024-02-03 13:43] VITALS: BMI 27.4
[2024-02-03] MEDS: ROSUVASTATIN 10 MG TAB PO SCH (20:50)
[2024-02-03] MEDS: APIXABAN 5 MG TABLET PO SCH (20:50)
[2024-02-03] MEDS: MELATONIN 3 MG TABLET PO PRN (21:05)
[2024-02-04 04:38] LABS: Absolute Basophils 0.1 K/uL (0-0.5); Absolute Eosinophils 0.2 K/uL (0-0.5); Absolute Monocytes 0.7 K/uL (0.1-1.3); Eosinophils % 2.8 % (0-4.4); Hematocrit 38.7 % (36.0-45.0); Hemoglobin 13.4 g/dL (12.0-15.0); Lymphocytes % 25.5 % (15.3-44.8); MCH 31.4 pg (27.0-35.0); MCHC 34.6 g/dL (32.0-36.0); MCV 90.7 fL (80-100); MPV 7.9 fL (7.6-11.3); Monocytes % 8.4 % (3.3-12.3); Neutrophils % 62.3 % (41.7-73.7); Platelets 284 thou/uL (152-406); RBC Red Blood Cell Count 4.27 M/uL (3.86-4.86); Red Cell Distribution Width 13.1 % (12.1-15.2)
[2024-02-04 04:49] LABS: Anion Gap 7.3 mEq/L (5.0-15.0); Potassium 4.3 mEq/L (3.5-5.1)
[2024-02-04] MEDS: METOPROLOL XL 50 MG TAB PO SCH (06:00)
[2024-02-04 08:19] VITALS: O2SAT 99
[2024-02-04] MEDS: AMLODIPINE 10 MG TAB PO SCH (09:00)
[2024-02-04] MEDS ORDERED: ASPIRIN EC 81 MG TAB PO SCH (09:00)
[2024-02-04] MEDS: LOSARTAN POTASSIUM 50 MG TABLET PO SCH (09:15)
--- NOTE | 2024-02-04 12:41 | P.DS ---
Admission Date: 02/03/24 Discharge Date: 02/04/24 Reason for Admission: A-fib RVR Brief History of Present Illness: Mrs. Yusuf is an 83-year-old female with a past medical history of a fib, hypertension, hyperlipidemia, and remote CVA. She states her stresses her out and she had an episode of a "funny feeling" to her left arm. She states her made her even more anxious so she presented to the emergency department. Her initial rhythm was A-fib with rapid ventricular response, with minimal treatment in the emergency department she converted to normal sinus rhythm and is currently without complaint. The hospitalist program was asked to admit the patient for echo and consultation to cardiology. Labs: TSH 0.63, CBC and Chem-7 unremarkable, INR 1.3, troponin 14.3 Imaging: Chest x-ray with no acute abnormalities displayed Hospital Course: Mrs. Yusuf converted to normal sinus rhythm in the emergency department, she has had no further episodes of A-fib, she tells the nurse that she used to take amiodarone 400 mg p.o. twice daily but when the bottle was empty discontinued. We will start her on would metoprolol, have her continue Eliquis, and follow-up with Dr. Davenport next week. <Freya Blake - Last Filed: 02/04/24 12:36> Admission Date: 02/03/24 Discharge Date: 02/04/24 Hospital Course: Pt seen and examined. I agree with the note by the RADIO MECHANIC HELPER. Will continue metoprolol and eliquis at home. Follow up with Cardiology and PCP. Ok to dc pt. <Alis Ren - Last Filed: 02/04/24 13:14> Disposition: ROUTINE DISCHARGE Vital Signs/Physical Exam: Temp Pulse Resp BP Pulse Ox 97.8 F 51 16 154/54 H 99 02/04/24 08:00 02/04/24 08:00 02/04/24 08:00 02/04/24 08:00 02/04/24 08:00 General: Alert, In no apparent distress, Oriented x3 HEENT: Atraumatic, Normocephalic Neck: Supple Respiratory: Normal air movement Cardiovascular: Normal pulses Capillary refill: <2 Seconds Gastrointestinal: Normal bowel sounds Musculoskeletal: No clubbing Integumentary: No rashes Neurological: Normal speech, Normal tone, Normal affect Lymphatics: No axilla or inguinal lymphadenopathy External genitalia: Deferred Rectal: Deferred Other Physical/Emotional Findings: Patient tearful, increased stress with her . Patient has 3 sons 1 lives in her home, 1 lives locally, and 1 lives near [place] Laboratory Data at Discharge: WBC 8.00 thou/uL (4.3-10.9) 02/04/24 04:09 Hgb 13.4 g/dL (12.0-15.0) D 02/04/24 04:09 Hct 38.7 % (36.0-45.0) 02/04/24 04:09 Plt Count 284 thou/uL (152-406) 02/04/24 04:09 PT 14.5 SECONDS (9.4-12.5) H 02/03/24 10:30 INR 1.30 02/03/24 10:30 Sodium 144 mEq/L (136-145) 02/04/24 04:09 Potassium 4.3 mEq/L (3.5-5.1) D 02/04/24 04:09 BUN 14 mg/dL (7-18) 02/04/24 04:09 Creatinine 0.68 mg/dL (0.55-1.02) 02/04/24 04:09 Glucose 107 mg/dL (74-106) H 02/04/24 04:09 Magnesium 2.1 mg/dL (1.6-2.4) 02/03/24 10:30 Total Bilirubin 0.5 mg/dL (0.2-1.0) 02/03/24 10:30 AST 14 U/L (15-37) L 02/03/24 10:30 ALT 23 U/L (13-56) 02/03/24 10:30 Alkaline Phosphatase 114 U/L (45-117) 02/03/24 10:30 Lipase 32 U/L (13-75) 02/03/24 10:30 <Blake,Freya Collin - Last Filed: 02/04/24 12:36> Vital Signs/Physical Exam: Temp Pulse Resp BP Pulse Ox 97.8 F 51 16 154/54 H 99 02/04/24 08:00 02/04/24 08:00 02/04/24 08:00 02/04/24 08:00 02/04/24 08:00 Laboratory Data at Discharge: WBC 8.00 thou/uL (4.3-10.9) 02/04/24 04:09 Hgb 13.4 g/dL (12.0-15.0) D 02/04/24 04:09 Hct 38.7 % (36.0-45.0) 02/04/24 04:09 Plt Count 284 thou/uL (152-406) 02/04/24 04:09 PT 14.5 SECONDS (9.4-12.5) H 02/03/24 10:30 INR 1.30 02/03/24 10:30 Sodium 144 mEq/L (136-145) 02/04/24 04:09 Potassium 4.3 mEq/L (3.5-5.1) D 02/04/24 04:09 BUN 14 mg/dL (7-18) 02/04/24 04:09 Creatinine 0.68 mg/dL (0.55-1.02) 02/04/24 04:09 Glucose 107 mg/dL (74-106) H 02/04/24 04:09 Magnesium 2.1 mg/dL (1.6-2.4) 02/03/24 10:30 Total Bilirubin 0.5 mg/dL (0.2-1.0) 02/03/24 10:30 AST 14 U/L (15-37) L 02/03/24 10:30 ALT 23 U/L (13-56) 02/03/24 10:30 Alkaline Phosphatase 114 U/L (45-117) 02/03/24 10:30 Lipase 32 U/L (13-75) 02/03/24 10:30 <Alis Ren - Last Filed: 02/04/24 13:14> Diet: AHA Activity: Ad rocio <Lou,Freya Collin - Last Filed: 02/04/24 12:36> <Alis Ren - Last Filed: 02/04/24 13:14> Home Medications: Losartan Potassium 100 mg PO DAILY 04/24/21 Metoprolol Succinate 50 mg PO DAILY 04/24/21 Rosuvastatin [Crestor*] 20 mg PO BEDTIME 04/24/21 Apixaban [Eliquis] 5 mg PO BID #60 tab 06/17/22 Carboxymethylcellulos/Glycerin [Refresh Optive Eye Drops] 1 drop OP DAILY 09/07/22 Latanoprost/Pf [Latanoprost 0.005% Eye Drop] 1 drop OP BEDTIME 09/07/22 Mirabegron [Myrbetriq] 25 mg PO DAILY 02/03/24 Physician Discharge Instructions: Mrs. Yusuf converted to normal sinus rhythm in the emergency department, she has had no further episodes of A-fib, she tells the nurse that she used to take amiodarone 400 mg p.o. twice daily but when the bottle was empty she discontinued. Dr. Davenport started her on metoprolol and Eliquis. Previously p icked up at [facility]. She needs follow-up with Dr. Davenport next week. Followup: Leandra Diaz [Primary Care Provider] - Ivan Davenport MD [ACTIVE - CAN ADMIT] -
[2024-02-04 14:07] VITALS: BP 147/75; TEMP 98
--- NOTE | 2024-02-06 07:23 | ECHO ---
HEIGHT: 5 ft 6 in WEIGHT: 170 lb 0 oz DATE OF STUDY: 02/03/[address]: Live Humphries MD 2-DIMENSIONAL: YES M.MODE: YES DOPPLER: YES COLOR FLOW: YES TDS: PORTABLE: YES DEFINITY: BUBBLE STUDY: DIAGNOSIS: ABNORMAL ELECTROCARDIOGRAM CARDIAC HISTORY: CATHERIZATION: NO SURGERY: NO PROSTHETIC VALVE: NO PACEMAKER: NO MEASUREMENTS (cm) DIASTOLIC (NORMALS) SYSTOLIC (NORMALS) IVSd 1.2 (0.6-1.2) LA Diam 3.0 (1.9-4.0) LVEF 60-65% LVIDd 4.1 (3.5-5.7) LVIDs 2.8 (2.0-3.5) %FS 32% LVPWd 1.3 (0.6-1.2) Ao Diam 2.7 (2.0-3.7) 2 DIMENSIONAL ASSESSMENT: RIGHT ATRIUM: NORMAL LEFT ATRIUM: NORMAL RIGHT VENTRICLE: NORMAL LEFT VENTRICLE: NORMAL TRICUSPID VALVE: TRACE TRICUSPID REGURGITATION MITRAL VALVE: NORMAL PULMONIC VALVE: NORMAL AORTIC VALVE: NORMAL PERICARDIAL EFFUSION: NONE AORTIC ROOT: NORMAL LEFT VENTRICULAR WALL MOTION: NORMAL DOPPLER/COLOR FLOW: GRADE I DIASTOLIC DYSFUNCTION COMMENTS: 1. NORMAL LEFT VENTRICULAR SYSTOLIC FUNCTION, EJECTION FRACTION 60-65%, NORMAL WALL MOTION 2. GRADE I DIASTOLIC DYSFUNCTION 3. MILD PULMONARY HYPERTENSION (RIGHT VENTRICULAR SYSTOLIC PRESSURE 30-35 mmHg) TECHNOLOGIST: JOSELIN CACERES
--- NOTE | 2024-02-06 12:59 | EKG ---
Test Date: 2024-02-03 Test Time: 12:02:02 Distribution Systems Serviceperson: ALICIA MEASUREMENT RESULTS: Intervals: Rate: 77 RI: 200 QRSD: 94 QT: 370 QTc: 418 [place]: P: 63 RI: 200 QRS: -27 T: 62 INTERPRETIVE STATEMENTS: Normal sinus rhythm Normal ECG Compared to ECG 02/03/2024 10:23:47 Atrial fibrillation no longer present Ventricular premature complex(es) no longer present Left-axis deviation no longer present Electronically Signed On 02-06-24 12:50:12 CDT by Ivan Davenport
--- NOTE | 2024-02-06 12:59 | EKG ---
Test Date: 2024-02-03 Test Time: 10:23:47 Medical Laboratory Manager: ALICIA MEASUREMENT RESULTS: Intervals: Rate: 145 [place]: QRSD: 88 QT: 296 QTc: 459 [place]: P: [place]: QRS: -65 T: 65 INTERPRETIVE STATEMENTS: Atrial fibrillation with premature ventricular or aberrantly conducted complexes Left axis deviation Abnormal ECG Compared to ECG 09/07/2022 05:58:40 Ventricular premature complex(es) now present Left-axis deviation now present Myocardial infarct finding no longer present Electronically Signed On 02-06-24 12:50:26 CDT by Ivan Davenport
== END 2024-02-04 16:13 | disposition home or self-care (01) ==
LOC: ER 10:09 → ERHOLD 11:59 → 2ND 13:10
PROVIDERS: ADMIT Hospitalist; ATTEND Hospitalist
DX: I48.11 Longstanding persistent atrial fibrillation (principal); R07.9 Chest pain, unspecified; I10 Essential (primary) hypertension; E78.5 Hyperlipidemia, unspecified; Z86.73 Personal history of transient ischemic attack (TIA), and cerebral infarction without residual deficits; Z79.01 Long term (current) use of anticoagulants; Z88.5 Allergy status to narcotic agent
CPT/HCPCS: 96365; 93306; 85025 ×2; 81001; 80048 ×2; 36415; 83735; 85610; 80076; 84443; 84484 ×4; 83690; 83880; 71045; 96375; 99285; J3475; J1160; J7040; G0378 ×3; 93005

== ENCOUNTER 2024-10-01 10:28 | Inpatient (IN) | payer OTHER ==
[2024-10-01] MEDS ORDERED: NITROGLYCERIN 0.4 MG/TAB SL ONE (10:48)
[2024-10-01] MEDS ORDERED: ASPIRIN 81 MG CHEWABLE TABLET ONE (10:48)
[2024-10-01] MEDS ORDERED: ONDANSETRON 4 MG/2 ML VIAL ONE (11:00)
[2024-10-01] MEDS ORDERED: MORPHINE 4 MG/ML SYR ONE (11:00)
[2024-10-01 11:06] LABS: Absolute Basophils 0.1 K/uL (0-0.5); Absolute Eosinophils 0.1 K/uL (0-0.5); Absolute Lymphocytes (CBC) 2.4 K/uL (0.7-4.9); Absolute Monocytes 0.4 K/uL (0.1-1.3); Absolute Neutrophil 3.8 K/uL (1.8-8.0); Basophils % 0.7 % (0-1.3); Eosinophils % 1.9 % (0-4.4); Hematocrit 43.2 % (36.0-45.0); Hemoglobin 15.4 g/dL (12.0-15.0); Lymphocytes % 35.1 % (15.3-44.8); MCH 31.6 pg (27.0-35.0); MCHC 35.7 g/dL (32.0-36.0); MCV 88.6 fL (80-100); MPV 7.8 fL (7.6-11.3); Neutrophils % 56.3 % (41.7-73.7); Nucleated Red Blood Cells % 0.1 % (0-0); Platelets 317 thou/uL (152-406); RBC Red Blood Cell Count 4.88 M/uL (3.86-4.86); Red Cell Distribution Width 13.8 % (12.1-15.2)
[2024-10-01 11:13] LABS: PT Prothrombin Time 12.2 SECONDS (10-13.0); Protime INR 1.07
[2024-10-01 11:27] LABS: Albumin 3.9 g/dL (3.4-5.0); Anion Gap 8.2 mEq/L (5.0-15.0); Bilirubin Direct 0.2 mg/dL (0-0.2); Bilirubin Indirect, Calculated 0.4 mg/dL (0.2-0.8); Bilirubin Total 0.6 mg/dL (0.2-1.0); Globulin 3.8 g/dL (2.3-3.5); Potassium 3.2 mEq/L (3.5-5.1); Protein, Total 7.7 g/dL (6.4-8.2); Troponin High Sensitivity 7.9 pg/mL (<58.9)
--- NOTE | 2024-10-01 11:51 | RAD REPORT ---
EXAM: CT Chest For Pe Angio TECHNIQUE: CT angiogram of the chest was performed following intravenous contrast administration, inc luding sagittal and coronal as well as maximum intensity projection reformats. One or more of the following dose reduction techniques were used: Automated exposure control, adjustment of the mA and k V according to patient size, and iterative reconstruction. Unless otherwise specified, incidental findings do not require dedicated imaging follow-up. INDICATION: CHEST PAIN COMPARISON: 08/18/2020. FINDINGS: LINES/TUBES: None. PULMONARY ARTERIES: Main pulmonary arteries are normal in caliber. No filling defects within the pul monary arteries to suggest pulmonary embolus. LUNGS AND AIRWAYS: The lungs and central airways are normal without focal abnormality. PLEURA: No effusion or pneumothorax. HEART AND MEDIASTINUM: The visualized thyroid gland is normal. No mediastinal, hilar, or axillary lym phadenopathy. Heart is unremarkable. No pericardial effusion. SOFT TISSUES AND BONES: No acute osseous abnormality. No significant soft tissue finding. UPPER ABDOMEN: Unremarkable. IMPRESSION: No evidence of acute central pulmonary emboli. No suspicious intrathoracic findings..
--- NOTE | 2024-10-01 12:38 | RAD REPORT ---
EXAMINATION: US Abdomen Exam Limited CLINICAL HISTORY: [facility] MAIN N chest pain; RUQ;Abd pain Bed Name: 6 COMPARISON: CT abdomen and pelvis 01/14/2022 TECHNIQUE: Limited upper abdominal grayscale and color flow sonographic images. FINDINGS: Gallbladder: Moderate gallbladder distention. No echogenic calculi or sludge. No pericholecystic flui d. Wall is normal in thickness. Reportedly negative sonographic Ivey's sign. Bile ducts: No intrahepatic or extrahepatic biliary dilatation. Common bile duct measures 4 mm. Walker ited visualization of the distal CBD given overshadowing midline bowel gas. Liver: Visualized portions of the liver demonstrate normal echogenicity with no suspicious findings. Fluid: No ascites. IMPRESSION: No abnormalities on right upper quadrant ultrasound.
--- NOTE | 2024-10-01 12:39 | RAD REPORT ---
EXAMINATION: ONE VIEW CHEST XR CLINICAL INDICATION: Female, 84 years old.,CHEST PAIN TECHNIQUE: Frontal chest projection is submitted. Examination is limited by patient positioning and t echnique. COMPARISON: 02/08/2024 FINDINGS: The lungs are grossly clear although suboptimal inspiratory effort somewhat limits evaluation. No pn eumothorax or sizable effusion. The heart is normal in size. Mediastinal contours are unremarkable. IMPRESSION: No acute intrathoracic abnormalities.
[2024-10-01] MEDS ORDERED: HYDROMORPHONE HCL 1 MG/ML INJ ONE (12:41)
--- NOTE | 2024-10-01 12:56 | RAD REPORT ---
EXAMINATION: CT Abdomen Wo Contrast CLINICAL INDICATION: Female, 84 years old. No contrast; elevated lipase (see CT chest) TECHNIQUE: CT abdomen and pelvis was performed, without IV contrast, as per department protocol. Axia l, sagittal and coronal reconstructions were obtained. One or more of the following dose reduction techniques were used: Automated exposure control, adjustment of the mA and kV according to the patien t size, and iterative reconstruction. Unless otherwise specified, incidental findings do not require dedicated imaging follow-up. COMPARISON: Abdomen ultrasound of the same day. CT chest 10/01/2024 FINDINGS: The lack of intravenous contrast limits the sensitivity of this exam for evaluation of solid visceral organs, vascular structures, and retroperitoneum. LOWER CHEST: The visualized lung bases are clear. LIVER: Normal in size and contour. No focal lesion. 1 cm fluid density subcapsular segment IVb lesion . BILIARY SYSTEM: No suspicious abnormalities apart from mild layering sludge near the fundus. SPLEEN: Normal size. No focal lesion. PANCREAS: Diffuse edematous changes throughout the pancreas most notably at the tail, with mild perip ancreatic fluid tracking towards the left paracolic gutter. No appreciable fluid collections on noncontrast CT. No discrete mass or ductal dilation. ADRENALS: Normal; no mass. KIDNEYS AND URETERS: Normal size and contour. No hydronephrosis. Excretion of contrast within the col lecting system limits evaluation for calculi. GASTROINTESTINAL TRACT: No evidence of bowel obstruction, significant free fluid, free air or abscess . APPENDIX: Normal appendix. LYMPH NODES: No lymphadenopathy. MUSCULOSKELETAL: No acute or suspicious osseous abnormality. ADDITIONAL FINDINGS: None. IMPRESSION: Changes of acute pancreatitis without evidence of peripancreatic collections or soft tissue gas. Other incidental findings as above. THIS REPORT CONTAINS FINDINGS THAT MAY BE CRITICAL TO PATIENT CARE. The findings were verbally commun icated via telephone to Inocencia Medina on 10/01/2024 12:45 PM.
--- NOTE | 2024-10-01 13:01 | ER ---
Nurse's Notes [facility] Name: Deisy Yusuf Age: 84 yrs Sex: Female : 1940 Arrival Date: 10/01/2024 Time: 10:28 Bed 6 Private MD: Diagnosis: New onset pancreatitis Presentation: 10/01 10:33 Chief complaint: Sudden onset substernal chest pressure that started while eating hb breakfast this morning. Coronavirus screen: At this time, the client does not indicate any symptoms associated with coronavirus-19. Ebola Screen: No symptoms or risks identified at this time. Initial Sepsis Screen: Does the patient meet any 2 criteria? No. Patient's initial sepsis screen is negative. Does the patient have a suspected source of infection? No. Patient's initial sepsis screen is negative. Risk Assessment: Do you want to hurt yourself or someone else? Patient reports no desire to harm self or others. Onset of symptoms was October 01, 2024. 10:33 Method Of Arrival: Wheelchair hb 10:33 Acuity: KIRSTIN 2 hb Historical: - Allergies: 10:35 Codeine; hb - Home Meds: 10:36 Eliquis 5 mg Oral tablet 2 times per day [Active]; losartan 100 mg Oral tab 1 tab once hb daily [Active]; metoprolol succinate ER 50 mg daily [Active]; Myrbetriq 25 mg Oral Tablet daily [Active]; rosuvastatin 20 mg Oral tablet [Active]; - PMHx: 10:35 Atrial fibrillation; CVA; Hyperlipidemia; Hypertension; overactive bladder hb (Hypertension); - PSHx: 10:35 bilateral ovary removal; Appendectomy; section; hip; hb - Immunization history:: Adult Immunizations up to date. - Infectious Disease History:: Denies. - Social history:: Smoking status: Patient denies any tobacco usage or history of. Screenin:50 [facility] ED Fall Risk Assessment (Adult) History of falling in the last 3 months, aa5 including since admission No falls in past 3 months (0 pts) Confusion or Disorientation No (0 pts) Intoxicated or Sedated No (0 pts) Impaired Gait No (0 pts) Mobility Assist Device Used No (0 pt) Altered Elimination No (0 pt) Score/Fall Risk Level 0 - 2 = Low Risk Oriented to surroundings, Maintained a safe environment, Educated pt \\T\\ family on fall prevention, incl call for assistance when getting out of bed, Assessed \\T\\ reinforced patient's understanding of fall precautions. Abuse screen: Denies threats or abuse. Nutritional screening: No deficits noted. Tuberculosis screening: No symptoms or risk factors identified. Assessment: 10:50 General: Appears uncomfortable, Behavior is cooperative, restless. Pain: Complains of aa5 pain in diaphragm Pain radiates to back, states "wraps around to back like a tight rope" Pain currently is 10 out of 10 on a pain scale. Quality of pain is described as pressure, Pain began 1 hour ago. Is continuous. Neuro: Level of Consciousness is awake, alert, obeys commands, Oriented to person, place, time, situation. Cardiovascular: Reports chest pain, Heart tones S1 S2 present Rhythm is regular. Respiratory: Airway is patent Respiratory effort is even, unlabored, Respiratory pattern is regular, symmetrical. GI: Abdomen is round non-distended, Bowel sounds present X 4 quads. Abd is soft and non tender X 4 quads. Patient currently denies indigestion, nausea, vomiting. : No signs and/or symptoms were reported regarding the genitourinary system. EENT: No signs and/or symptoms were reported regarding the EENT system. Derm: Skin is clammy, Skin is normal, Skin temperature is cool. Musculoskeletal: Range of motion: intact in all extremities. 11:19 Reassessment: Patient is alert, oriented x 3, equal unlabored respirations, skin aa5 warm/dry/pink. Patient states symptoms have not improved. MD notified of pt's pain level 10/10, not improved after medication administration. . Pain: Pain currently is 10 out of 10 on a pain scale. 11:20 Reassessment: Pt to CT via stretcher . aa5 11:38 Reassessment: Patient is alert, oriented x 3, equal unlabored respirations, skin aa5 warm/dry/pink. MD notified of pain level and pt c/o pain. . Pain: Pain currently is 8 out of 10 on a pain scale. 11:43 Reassessment: MD at bedside. . aa5 12:39 Reassessment: Patient is alert, oriented x 3, equal unlabored respirations, skin aa5 warm/dry/pink. Pt requesting pain medication, MD was notified. . Pain: Pain currently is 6 out of 10 on a pain scale. 12:39 General: Appears comfortable, Behavior is calm, cooperative. aa5 13:10 Reassessment: Patient is alert, oriented x 3, equal unlabored respirations, skin aa5 warm/dry/pink. Patient states feeling better. Patient states symptoms have improved. MD at bedside speaking to pt about need for admission, pt verbalizes understanding. . Pain: Pain currently is 5 out of 10 on a pain scale. Vital Signs: 10:33 BP 161 / 109; Pulse 77; Resp 18; Temp 97.8; Pulse Ox 100% on R/A; Weight 86.18 kg; hb Height 5 ft. 4 in. ; Pain 9/10; 10:52 BP 138 / 83; Pulse 73; Resp 26 S; Pulse Ox 100% on R/A; aa5 10:59 BP 129 / 72; Pulse 63; Resp 20 S; Pulse Ox 98% on R/A; aa5 11:05 BP 143 / 64; Pulse 64; Resp 22 S; Pulse Ox 98% on R/A; aa5 11:13 BP 123 / 53; Pulse 61; Resp 20 S; Pulse Ox 98% on R/A; aa5 11:38 BP 165 / 58; Pulse 62; Resp 18 S; Pulse Ox 99% on R/A; aa5 12:45 BP 153 / 62; Pulse 56; Resp 16 S; Pulse Ox 100% on R/A; aa5 12:48 Pulse Ox 88% on R/A; aa5 12:49 Pulse Ox 97% on 2 lpm NC; aa5 13:16 BP 149 / 61; Pulse 58; Resp 16 S; Temp 97.3(TE); Pulse Ox 98% on 2 lpm NC; aa5 10:33 Body Mass Index 32.61 (86.18 kg, 162.56 cm) hb 10:33 Pain Scale: Adult hb ED Course: 10:30 Patient arrived in ED. im 10:30 Inocencia Medina MD is Attending Physician. sp3 10:35 Triage completed. hb 10:35 EKG done, by ED staff, reviewed by Inocencia Medina MD. zm 10:43 Smitha Garvey, RN is Primary Nurse. aa5 10:50 Patient has correct armband on for positive identification. Placed in gown. Bed in low aa5 position. Call light in reach. Side rails up X2. Client placed on continuous cardiac and pulse oximetry monitoring. NIBP monitoring applied. telemetry monitor on. Pulse ox on. NIBP on. 10:50 Arm band placed on. aa5 10:51 Initial lab(s) drawn, by me, sent to lab. Inserted saline lock: 20 gauge in right aa5 antecubital area, using aseptic technique. Blood collected. Flushed with 10 mL NS. 11:00 No provider procedures requiring assistance completed. Patient maintains SpO2 aa5 saturation greater than 95% on room air. 11:29 CT Chest For PE Angio In Process Unspecified. EDMS 12:09 US Abdomen Limited In Process Unspecified. EDMS 12:12 XRAY Chest (1 view) In Process Unspecified. EDMS 12:17 Abdomen Wo Contrast In Process Unspecified. EDMS 13:00 Donovan Blunt MD is Hospitalizing Provider. sp3 13:10 Cholesterol level drawn and sent to lab. aa5 15:00 Patient admitted, IV remains in place. aa5 19:13 Provided Education on: need for admission. bm8 Administered Medications: 10:50 Drug: Aspirin PO Chewable Tablet 324 mg PO once; 81 mg tablets x 4 Route: PO; aa5 11:19 Follow up: Response: No adverse reaction aa5 10:50 Drug: Nitroglycerin Sublingual 0.4 mg Sublingual once; every five minute if needed x3 aa5 Route: Sublingual; 11:00 Drug: Nitroglycerin Sublingual 0.4 mg Sublingual once; every five minute if needed x3 aa5 Route: Sublingual; 11:06 Drug: Nitroglycerin Sublingual 0.4 mg Sublingual once; every five minute if needed x3 aa5 Route: Sublingual; 11:14 Follow up: Response: Pain is unchanged, physician notified aa5 11:14 Drug: morphine IVP or IV 4 mg IVP once over 4 mins Route: IVP; Infused Over: 4 mins; aa5 Site: right antecubital; 11:18 Follow up: Response: No adverse reaction aa5 11:19 Follow up: Response: Pain is unchanged, physician notified aa5 11:14 Drug: Ondansetron IVP 4 mg IVP once; over 2 minutes Route: IVP; Site: right antecubital;aa5 11:18 Follow up: Response: No adverse reaction aa5 12:48 Drug: HYDROmorphone IVP 1 mg IVP once Route: IVP; Site: right antecubital; aa5 12:58 Follow up: Response: No adverse reaction aa5 14:22 Drug: Promethazine IVP 12.5 mg IVP once Route: IVP; Site: right antecubital; aa5 Medication: 11:22 VIS not applicable for this client. aa5 Outcome: 13:01 Decision to Hospitalize by Provider. sp3 15:00 Admitted to ER Hold. Please see [facility] for further documentation. aa5 15:00 Condition: stable 15:00 Instructed on the need for admit, Demonstrated understanding of instructions, 19:13 Patient left the ED. bm8 Signatures: Dispatcher [employer] EDSmitha Diane, RN RN aa5 Radha Purvis RN RN hb Inocencia Medina MD MD sp3 Cindi Mcmahon Itzel im McDonald, Brad RN RN bm8 Corrections: (The following items were deleted from the chart) 10:36 10:33 Chief complaint: Sudden onset substernal chest pressure that started while eating hb breakfast this morning. hb 10:36 10:33 86.18 kg; Height 5 ft. 4 in.; BMI: 32.6; Pain 9/10, Adult; hb hb
--- NOTE | 2024-10-01 13:01 | EDPHYS ---
Physician Documentation [facility] Name: Deisy Yusuf Age: 84 yrs Sex: Female : 1940 Arrival Date: 10/01/2024 Time: 10:28 Bed 6 Private MD: ED Physician Inocencia Medina HPI: 10/01 10:41 This 84 yrs old Female presents to ER via Wheelchair with complaints of Chest sp3 Pain, Back Pain, High Blood Pressure. 10:41 84-year-old female with history of atrial fibrillation on Eliquis, CVA, hyperlipidemia, sp3 hypertension sees Dr. Davenport and is in the process of switching to a new PCP now presents to the ED with chief complaint chest pain that started insidiously around 9 AM today. Patient was resting and not straining at all when symptoms started. Symptoms consist of substernal chest pain radiating to the left side. She denies any shortness of breath, back pain, right-sided pain, abdominal pain, vomiting, diarrhea, syncope, fever, cough, headache, neck pain, numbness or tingling, or any other signs or symptoms on ROS at this time.. Historical: - Allergies: 10:35 Codeine; hb - Home Meds: 10:36 Eliquis 5 mg Oral tablet 2 times per day [Active]; losartan 100 mg Oral tab 1 tab once hb daily [Active]; metoprolol succinate ER 50 mg daily [Active]; Myrbetriq 25 mg Oral Tablet daily [Active]; rosuvastatin 20 mg Oral tablet [Active]; - PMHx: 10:35 Atrial fibrillation; CVA; Hyperlipidemia; Hypertension; overactive bladder hb (Hypertension); - PSHx: 10:35 bilateral ovary removal; Appendectomy; section; hip; hb - Immunization history:: Adult Immunizations up to date. - Infectious Disease History:: Denies. - Social history:: Smoking status: Patient denies any tobacco usage or history of. ROS: 10:42 Constitutional: Negative for fever, chills, and weight loss, Eyes: Negative for injury, sp3 pain, redness, and discharge, ENT: Negative for injury, pain, and discharge, Neck: Negative for injury, pain, and swelling, Respiratory: Negative for shortness of breath, cough, wheezing, and pleuritic chest pain, Abdomen/GI: Negative for abdominal pain, nausea, vomiting, diarrhea, and constipation, Back: Negative for injury and pain, MS/Extremity: Negative for injury and deformity, Skin: Negative for injury, rash, and discoloration, Neuro: Negative for headache, weakness, numbness, tingling, and seizure, Psych: Negative for depression, anxiety, suicide ideation, homicidal ideation, and hallucinations, Allergy/Immunology: Negative for hives, rash, and allergies, Endocrine: Negative for neck swelling, polydipsia, polyuria, polyphagia, and marked weight changes, Hematologic/Lymphatic: Negative for swollen nodes, abnormal bleeding, and unusual bruising, 10:42 All other systems are negative, Exam: 10:42 Constitutional: This is a well developed, well nourished patient who is awake, alert, sp3 and in no acute distress. Head/Face: Normocephalic, atraumatic. Eyes: Pupils equal round and reactive to light, extra-ocular motions intact. Lids and lashes normal. Conjunctiva and sclera are non-icteric and not injected. Cornea within normal limits. Periorbital areas with no swelling, redness, or edema. ENT: Nares patent. No nasal discharge, no septal abnormalities noted. External auditory canals are clear. Oropharynx with no redness, swelling, or masses, exudates, or evidence of obstruction, uvula midline. Mucous membranes moist. Neck: Trachea midline, no thyromegaly or masses palpated, and no cervical lymphadenopathy. Supple, full range of motion without nuchal rigidity, or vertebral point tenderness. No Meningismus. Chest/axilla: Normal chest wall appearance and motion. Nontender with no deformity. No lesions are appreciated. Cardiovascular: Regular rate and rhythm with a normal S1 and S2. No gallops, murmurs, or rubs. Normal PMI, no JVD. No pulse deficits. Respiratory: Lungs have equal breath sounds bilaterally, clear to auscultation and percussion. No rales, rhonchi or wheezes noted. No increased work of breathing, no retractions or nasal flaring. Abdomen/GI: Soft, non-tender, with normal bowel sounds. No distension or tympany. No guarding or rebound. No evidence of tenderness throughout. Back: No spinal tenderness. No costovertebral tenderness. Full range of motion. Skin: Warm, dry with normal turgor. Normal color with no rashes, no lesions, and no evidence of cellulitis. MS/ Extremity: Pulses equal, no cyanosis. Neurovascular intact. Full, normal range of motion. Neuro: Awake and alert, GCS 15, oriented to person, place, time, and situation. Cranial nerves II-XII grossly intact. Motor strength 5/5 in all extremities. Sensory grossly intact. Cerebellar exam normal. Normal gait. Psych: Awake, alert, with orientation to person, place and time. Behavior, mood, and affect are within normal limits. 10:42 ECG was reviewed by the Attending Physician. EKG demonstrates normal sinus rhythm at 77 bpm with normal intervals, normal QRS, normal axis, nonspecific ST/T changes without evidence of acute ischemia. Vital Signs: 10:33 BP 161 / 109; Pulse 77; Resp 18; Temp 97.8; Pulse Ox 100% on R/A; Weight 86.18 kg; hb Height 5 ft. 4 in. ; Pain 9/10; 10:52 BP 138 / 83; Pulse 73; Resp 26 S; Pulse Ox 100% on R/A; aa5 10:59 BP 129 / 72; Pulse 63; Resp 20 S; Pulse Ox 98% on R/A; aa5 11:05 BP 143 / 64; Pulse 64; Resp 22 S; Pulse Ox 98% on R/A; aa5 11:13 BP 123 / 53; Pulse 61; Resp 20 S; Pulse Ox 98% on R/A; aa5 11:38 BP 165 / 58; Pulse 62; Resp 18 S; Pulse Ox 99% on R/A; aa5 12:45 BP 153 / 62; Pulse 56; Resp 16 S; Pulse Ox 100% on R/A; aa5 12:48 Pulse Ox 88% on R/A; aa5 12:49 Pulse Ox 97% on 2 lpm NC; aa5 13:16 BP 149 / 61; Pulse 58; Resp 16 S; Temp 97.3(TE); Pulse Ox 98% on 2 lpm NC; aa5 10:33 Body Mass Index 32.61 (86.18 kg, 162.56 cm) hb 10:33 Pain Scale: Adult hb MDM: 10:38 Medical Screening Exam initiated sp3 10:43 Data reviewed: vital signs, nurses notes, old medical records, lab test result(s), EKG, sp3 radiologic studies. ED course: 84-year-old female with PMH above presents with chest pain. Patient is on Eliquis. Patient is had multiple episodes of chest pain in the past. Differential diagnosis includes acute coronary syndrome, angina, musculoskeletal pain, gastric pain, among others. I am not highly suspicious of TAD, PE, primary pulmonary pathology, sepsis, shock or any other critical process. Workup will include EKG, chest x-ray, general labs including troponin and treatment with nitroglycerin for both pain control and blood pressure management as BP is 161/109. Disposition probable 23-hour observation given probable high heart score.. 13:00 ED course: Lipase level elevated over 4000. Ultrasound demonstrates no biliary sp3 pathology and CBD of [address] abdomen also demonstrates pancreatitis with no other abnormality. Patient will be admitted to medicine for further workup.. 10/01 10:38 Order name: Basic Metabolic Panel; Complete Time: 11:28 sp3 10/01 10:38 Order name: CBC with Diff; Complete Time: 11:28 sp3 10/01 10:38 Order name: LFT's; Complete Time: 11:28 sp3 10/01 10:38 Order name: Magnesium; Complete Time: 11:28 sp3 10/01 10:38 Order name: NT PRO-BNP; Complete Time: 11:28 sp3 10/01 10:38 Order name: PT-INR; Complete Time: 11:28 sp3 10/01 10:38 Order name: Troponin HS; Complete Time: 11:28 sp3 10/01 11:40 Order name: Lipase; Complete Time: 12:05 sp3 10/01 13:03 Order name: Cholesterol; Complete Time: 13:39 sp3 10/01 15:23 Order name: Basic Metabolic Panel EDMS 10/01 15:23 Order name: Basic Metabolic Panel EDMS 10/01 15:23 Order name: Basic Metabolic Panel EDMS 10/01 15:23 Order name: CBC with Automated Diff EDMS 10/01 15:23 Order name: CBC with Automated Diff EDMS 10/01 15:23 Order name: CBC with Automated Diff EDMS 10/01 15:23 Order name: Liver (Hepatic) Function EDMS 10/01 15:23 Order name: Liver (Hepatic) Function EDMS 10/01 15:23 Order name: Liver (Hepatic) Function EDMS 10/01 10:38 Order name: XRAY Chest (1 view); Complete Time: 12:42 3 10/01 11:14 Order name: CT Chest For PE Angio; Complete Time: 12:05 3 10/01 11:40 Order name: US Abdomen Limited; Complete Time: 12:42 3 10/01 12:16 Order name: Abdomen Wo Contrast; Complete Time: 12:58 EDOR 10/01 15:20 Order name: Cholangiogram [facility] 10/01 15:19 Order name: CONS Physician Consult [facility] 10/01 15:20 Order name: Dr Lisandro Consult [facility] 10/01 10:38 Order name: Cardiac monitoring; Complete Time: 11:03 3 10/01 10:38 Order name: EKG - Nurse/Tech; Complete Time: 10:40 3 10/01 10:38 Order name: IV Saline Lock; Complete Time: 11:03 3 10/01 10:38 Order name: Labs collected and sent; Complete Time: 11:03 3 10/01 10:38 Order name: O2 Per Protocol; Complete Time: 11:03 3 10/01 10:38 Order name: O2 Sat Monitoring; Complete Time: 11:03 sp3 Administered Medications: 10:50 Drug: Aspirin PO Chewable Tablet 324 mg PO once; 81 mg tablets x 4 Route: PO; aa5 11:19 Follow up: Response: No adverse reaction aa5 10:50 Drug: Nitroglycerin Sublingual 0.4 mg Sublingual once; every five minute if needed x3 aa5 Route: Sublingual; 11:00 Drug: Nitroglycerin Sublingual 0.4 mg Sublingual once; every five minute if needed x3 aa5 Route: Sublingual; 11:06 Drug: Nitroglycerin Sublingual 0.4 mg Sublingual once; every five minute if needed x3 aa5 Route: Sublingual; 11:14 Follow up: Response: Pain is unchanged, physician notified aa5 11:14 Drug: morphine IVP or IV 4 mg IVP once over 4 mins Route: IVP; Infused Over: 4 mins; aa5 Site: right antecubital; 11:18 Follow up: Response: No adverse reaction aa5 11:19 Follow up: Response: Pain is unchanged, physician notified aa5 11:14 Drug: Ondansetron IVP 4 mg IVP once; over 2 minutes Route: IVP; Site: right antecubital;aa5 11:18 Follow up: Response: No adverse reaction aa5 12:48 Drug: HYDROmorphone IVP 1 mg IVP once Route: IVP; Site: right antecubital; aa5 12:58 Follow up: Response: No adverse reaction aa5 14:22 Drug: Promethazine IVP 12.5 mg IVP once Route: IVP; Site: right antecubital; aa5 Disposition Summary: 10/01/24 13:01 Hospitalization Ordered Notes: Hospitalization Status: Inpatient Admission sp3 Provider: Donovan Blunt sp3 Condition: Stable sp3 Problem: new sp3 Symptoms: have worsened sp3 Bed/Room Type: Standard sp3 Location: Telemetry/MedSurg (Inpatient)(10/01/24 17:18) bc6 Room Assignment: [facility](10/01/24 17:18) bc6 Diagnosis - New onset pancreatitis sp3 Forms: - Medication Reconciliation Form sp3 - SBAR form sp3 - Leadership Thank You Letter sp3 Signatures: Dispatcher [employer] EDMS Smitha Garvey, RN RN aa5 Radha Purvis RN RN hb Inocencia Medina MD MD sp3 Chica Camacho RN RN kb3 Vandana Chapman bc6 Corrections: (The following items were deleted from the chart) 10:39 10:39 BASIC METABOLIC PANEL+C.LAB.BRZ ordered. EDMS EDMS 10:39 10:39 CBC+H.LAB.BRZ ordered. EDMS EDMS 10:39 10:39 HEPATIC FUNCTION+C.LAB.BRZ ordered. EDMS EDMS 10:39 10:39 MAGNESIUM+C.LAB.BRZ ordered. EDMS EDMS 10:39 10:39 PROBNP+C.LAB.BRZ ordered. EDMS EDMS 10:39 10:39 PROTIME (+INR)+COAG.LAB.BRZ ordered. EDMS EDMS 10:39 10:39 Troponin High Sensitivity+C.LAB.BRZ ordered. EDMS EDMS 10:39 10:39 Chest Single View+RAD.RAD.BRZ ordered. EDMS EDMS 12:16 12:08 Abdomen W/ Con+CT.RAD.BRZ ordered. EDMS EDMS 15:29 13:01 Telemetry/MedSurg (Inpatient) sp3 kb3 15:29 13:01 sp3 kb3 17:18 15:29 [facility] ER HOLD kb3 bc6 17:18 15:29 ERHOLD- kb3 bc6
[2024-10-01] MEDS ORDERED: PROMETHAZINE INJ 25 MG/ML AMP ONE (14:19)
[2024-10-01] MEDS ORDERED: ONDANSETRON 4 MG/2 ML VIAL IV PRN (15:19)
--- NOTE | 2024-10-01 15:19 | P.HP ---
Certification for Inpatient Patient admitted to: Inpatient With expected LOS: >2 Midnights Practitioner: I am a practitioner with admitting privileges, knowledge of patient current condition, hospital course, and medical plan of care. Services: Services provided to patient in accordance with Admission requirements found in Title 42 Section 412.3 of the Code of Federal Regulations Patient History Date of Service: 10/01/24 Reason for admission: Pancreatitis, suspected gallstone pancreatitis History of Present Illness: 84yo F, PMH: HTN, paroxysmal Afib, HLD, ?remote CVA Presents to the ED after sudden onset of severe epigastric pain rating to her back. Pain began around 10 AM. She states she was working out side in her yard and then was eating some cereal when this pain began. She denies any recent changes in her medications, no new medications, no sick contacts. She has never had pain like this before, denies any previous issues with her gallbladder or pancreas. She states she does not drink alcohol. Nothing at home alleviated the pain, until she got to the ER and was given Dilaudid. She denies any fevers, no vomiting. In the ED, she was noted to have significant epigastric pain, CT noted inflammation of the pancreatic tail consistent with pancreatitis. No evidence on CT or ultrasound of any biliary pathology. CBD was within normal limits, and LFTs and total bilirubin were within normal limits as well. Lipase was noted to be significantly elevated. History and findings are most consistent with probable gallstone pancreatitis, and she may have passed or has a small nonobstructing gallstone in her biliary duct. She reports her pain is significantly improved at this time. She is a bit groggy from recently receiving Dilaudid this was not the best h istorian. Allergies codeine Allergy (Verified 04/24/21 13:44) Nausea/Vomiting Home Medications: Losartan Potassium 100 mg PO DAILY 04/24/21 Metoprolol Succinate 50 mg PO DAILY 04/24/21 Rosuvastatin [Crestor*] 20 mg PO BEDTIME 04/24/21 Apixaban [Eliquis] 5 mg PO BID #60 tab 06/17/22 Carboxymethylcellulos/Glycerin [Refresh Optive Eye Drops] 1 drop OP DAILY 09/07/22 Latanoprost/Pf [Latanoprost 0.005% Eye Drop] 1 drop OP BEDTIME 09/07/22 Mirabegron [Myrbetriq] 25 mg PO DAILY 02/03/24 - Past Medical/Surgical History Diabetic: No -: CVA -: Hypertension -: Hyperlipidemia -: afib -: Left hip replacement -: right hip replacement -: back surgery Psychosocial/ Personal History: Patient is . - Family History Mother -: Heart disease - Social History Smoking Status: Never smoker Alcohol use: No CD- Drugs: No Caffeine use: No Place of Residence: Home Review of Systems 10-point ROS is otherwise unremarkable Physical Examination - Physical Exam General: Alert, Oriented x3, Other (groggy) HEENT: PERRLA, EOMI (fff) Neck: Supple, No LAD (f) Respiratory: Clear to auscultation bilaterally, Normal air movement Cardiovascular: No edema, Regular rate/rhythm Gastrointestinal: Non-distended, Tenderness (epigastric, moderate) Musculoskeletal: No swelling, No erythema, No tenderness Integumentary: No rashes, No significant lesion Neurological: Normal speech, Normal affect - Studies Laboratory Data (last 24 hrs) 10/01/24 10/01/24 10/01/24 13:10 10:58 10:58 WBC Hgb Hct Plt Count PT 12.2 INR 1.07 Sodium Potassium BUN Creatinine Glucose Magnesium Total Bilirubin AST ALT Alkaline Phosphatase Cholesterol 154 Lipase 4497 H 10/01/24 10/01/24 10:58 10:58 WBC 6.70 Hgb 15.4 H Hct 43.2 Plt Count 317 PT INR Sodium 140 Potassium 3.2 L BUN 16 Creatinine 0.80 Glucose 131 H Magnesium 2.0 Total Bilirubin 0.6 AST 34 ALT 31 Alkaline Phosphatase 119 H Cholesterol Lipase Assessment and Plan - Advance Directives Does patient have a Living Will: No Does patient have a Durable POA for Healthcare: No Physician Review Additional Text: Problem list Pancreatitis Cholelithiasis Paroxysmal atrial fibrillation Hypertension Hyperlipidemia Elevated lipase, will continue to trend N.p.o. for now, IV fluids Given imaging findings of cholelithiasis and no other obvious or high risk factors an etiology for this pancreatitis, suspect this is secondary to gallstone. Does not drink alcohol, triglycerides were normal Normal bili and LFTs, so suspect the nonobstructing stone, or stone may have passed MRCP ordered GI, Dr. Boss consulted, and will see the patient General Surgery, Dr. Mcmahon consulted, and will see the patient. Patient may need cholecystectomy during this hospitalization versus elective in the near future Currently not septic, no evidence of cholecystitis at this time. Will start empiric IV Zosyn Pain control SCDs She has a history of atrial fibrillation and has been on Eliquis Hold Eliquis for now Code: Full -discussed with patient in the ED Time Spent Managing Pts Care (In Minutes): 70
[2024-10-01] MEDS ORDERED: PIPERACIL/TAZO 3.375 GM VIAL IV ONE (16:24)
[2024-10-01] MEDS ORDERED: NA CHLORIDE 0.9% 100 ML ONE (16:24)
[2024-10-01] MEDS ORDERED: D5.45NS W/KCL 20MEQ 1,000 ML IV ONE (16:25)
[2024-10-01] MEDS: PIPER TAZO 3.375 GM in NA CHLORIDE 0.9% 100 ML IV SCH (17:00)
[2024-10-01] MEDS: D5.45NS W/KCL 20MEQ 1,000 ML IV SCH (17:10)
--- NOTE | 2024-10-01 20:39 | RAD REPORT ---
EXAMINATION: MR CHOLANGIOGRAM CLINICAL INDICATION: Abdominal pain TECHNIQUE: Magnetic resonance cholangiopancreatogram was performed. 3D MIP reconstruction done. COMPARISON: October 01 CT and ultrasound FINDINGS: A filling defect within the gallbladder is not seen. Gallbladder wall does not appear thickened. Biliary tree normal caliber without filling defect seen. Pancreatic duct unremarkable. Pancreas is heterogeneous with stranding in the adjacent fat. No pseudocyst seen. IMPRESSION: Pancreatitis Unremarkable evaluation of the gallbladder and biliary tree
[2024-10-01] MEDS: HYDROMORPHONE HCL 1 MG/ML INJ IV PRN (23:34)
[2024-10-02] MEDS: HYDRALAZINE HCL 20 MG/ML VIAL IV ONE (06:12)
[2024-10-02 06:33] LABS: Absolute Eosinophils 0.1 K/uL (0-0.5); Absolute Lymphocytes (CBC) 1.5 K/uL (0.7-4.9); Absolute Monocytes 0.7 K/uL (0.1-1.3); Absolute Neutrophil 9.5 K/uL (1.8-8.0); Basophils % 0.3 % (0-1.3); Eosinophils % 0.6 % (0-4.4); Hematocrit 39.2 % (36.0-45.0); Hemoglobin 13.7 g/dL (12.0-15.0); Lymphocytes % 12.9 % (15.3-44.8); MCH 31.1 pg (27.0-35.0); MCHC 34.9 g/dL (32.0-36.0); MCV 88.9 fL (80-100); MPV 8.3 fL (7.6-11.3); Neutrophils % 80.2 % (41.7-73.7); Platelets 263 thou/uL (152-406); RBC Red Blood Cell Count 4.41 M/uL (3.86-4.86); Red Cell Distribution Width 13.8 % (12.1-15.2)
[2024-10-02 06:52] LABS: ALT/SGPT 43 U/L (13-56); AST/SGOT 36 U/L (15-37); Alkaline Phosphatase 112 U/L (45-117); BUN Blood Urea Nitrogen 14 mg/dL (7-18); Bicarbonate 27 mEq/L (21-32); Bilirubin Total 0.4 mg/dL (0.2-1.0); Globulin 3.1 g/dL (2.3-3.5); Glomerular Filtration Rate 88 ml/min (=/>90); Glucose Level 133 mg/dL (74-106); Protein, Total 6.1 g/dL (6.4-8.2); Sodium Level 141 mEq/L (136-145)
[2024-10-02 06:54] LABS: Bilirubin Direct < 0.2 mg/dL (0-0.2); Bilirubin Indirect, Calculated 0.2 mg/dL (0.2-0.8)
[2024-10-02 15:30] VITALS: BMI 32.2
--- NOTE | 2024-10-02 16:23 | P.PN ---
Subjective Date of Service: 10/02/24 Chief Complaint: Pancreatitis, suspected gallstone pancreatitis Patient denies abdominal pain today. No recorded fever. She denies any nausea and no vomiting. Physical Examination - Vital Signs Temperature: 98.2 F Blood Pressure: 124/53 Pulse: 74 Respirations: 18 Pulse Ox (%): 98 Assessment And Plan - Plan Physical examination General: Alert and oriented x3, NAD, HEENT: Conjunctiva not pale, anicteric sclera Neck: Supple, no elevated JVD Heart: Heart sounds 1 and 2 normal, regular rhythm, normal rate, no pedal edema Lungs: Clear to auscultation bilaterally, adequate breath sounds bilaterally, no rhonchi or crackles. Abdomen: Soft, nondistended, moderate epigastric tenderness, normal bowel sounds. Extremities: No tenderness, no deformity Skin: Normal skin turgor, no rash, no nodules or ulcers. Neuro: No focal motor deficit. Normal speech. Psychiatry: Normal mood, no agitation. Problem list Pancreatitis Cholelithiasis Paroxysmal atrial fibrillation Hypertension Hyperlipidemia Plan: Acute pancreatitis Clinically improving Lipase level trended down significantly from yesterday. MRCP shows no CBD stone or gallstone. Did report unremarkable gallbladder and biliary tree. Case discussed with Dr. Mcmahon who recommend no need for cholecystectomy at this time. Continue supportive measures for acute pancreatitis with IV hydration Monitor lipase Analgesics as needed Empiric IV Zosyn Trial of clear liquid diet. Paroxysmal atrial fibrillation Hypertension Hyperlipidemia Stable Continue home medications. Resume Eliquis. DVT prophylaxis: Eliquis Advanced directive: Full code
--- NOTE | 2024-10-02 17:42 | CON ---
Date of Consultation: 10/02/2024 Diagnosis: Pancreatitis. History Of Present Illness: This is a case of an 84-year-old patient admitted to the hospital with p ancreatitis of unknown etiology. Surgical consult was obtained to help determine if the gallbladder is involved in this or not. She stated the pain began the day before. She does not remember eating anything smoking, any drinking. The patient came to the ER, found to have inflammation of the pancreas, and a surgical consult was obtained. Allergies: CODEINE. Medications: Losartan, metoprolol, , Eliquis. Past Medical History: Include hypertension, hyperlipidemia, CVA, AFib. Past Surgical History: Include back surgery, right and left hip replacement. Family History: Heart disease. Social History: She does not smoke. She does not drink alcohol or use any other kind of drugs IV or p.o. Review of Systems: Today, she feels better. No nausea. No vomiting. Pain is a lot better, and no dysuria, hematuria, hematochezia, melena, or jaundice. Physical Examination: Vital Signs: Reviewed. General: Patient is awake, alert, oriented x3. Pupils are equal and reactive. Anicteric. Neck: Supple. Chest: Clear. Heart: S1, S2. Abdomen: Soft and depressible. Mild epigastric tenderness. No guarding or rebound. No Ivey sign s. Extremities: Good capillary refill. Laboratory Data: Blood work shows a WBC count of 11.8, hemoglobin of 13.7, platelets of 263. INR is 1.07, potassium is 4.0, creatinine 0.65, total bilirubin of 0.4. AST and ALT within normal limits. Alkaline phosphate 112, lipase came down from 4497 to 888. The patient had an ultrasound and CAT sc an of the abdomen and pelvis interpreted by Dr. Sargent as diffusely edematous changes through the pacheco creas, most notably in the tail. Acute pancreatitis without evidence of peripancreatic collections o r soft tissue gas. No suspicious abnormalities on the biliary system or other possible sludge near t he fundus. The ultrasound of the gallbladder shows no abnormalities on right upper quadrant ultrasou nd. Moderate gallbladder distention. No echogenic calculi or sludge found. No pericholecystic flui d. No Ivey sign. No wall thickening. Then patient had an MRCP done, interpreted by Dr. Wero bustamante unremarkable evaluation of the gallbladder and biliary tree, filling defects within the gallbladder is not seen. Gallbladder wall does not appear thickening. Biliary tree normal in caliber without f illing defects seen. Pancreatic ducts unremarkable. Some pancreatic stranding seen in the adjacent fat. Assessment: This is an 84-year-old patient with pancreatitis of unknown origin. We do not see any s tones in the gallbladder or the stone that may be contributing at least to that pancreatitis at least on the imaging today and to look for the etiologies of the pancreatitis. No surgical int ervention at this moment. She was advised when she gets discharged to follow up in my office. We wi ll discuss further about the findings on the MRCP of gallbladder. MUKESH/KARTHIK Voice ID: [id number] Report ID: [id number]
[2024-10-02] MEDS: SODIUM CHLORIDE 0.9% 10ML INJ IV ONE (18:52)
[2024-10-02] MEDS: PANTOPRAZOLE 40 MG INJ IVP ONE (18:52)
[2024-10-02 19:27] LABS: Troponin High Sensitivity 8.1 pg/mL (<58.9)
[2024-10-02] MEDS: ROSUVASTATIN 10 MG TAB PO SCH (21:41)
[2024-10-02] MEDS: APIXABAN 5 MG TABLET PO SCH (21:42)
[2024-10-03] MEDS: GABAPENTIN 100 MG CAP PO PRN (04:14)
[2024-10-03 04:34] LABS: Absolute Basophils 0.1 K/uL (0-0.5); Absolute Eosinophils 0.1 K/uL (0-0.5); Absolute Lymphocytes (CBC) 1.7 K/uL (0.7-4.9); Absolute Monocytes 0.9 K/uL (0.1-1.3); Absolute Neutrophil 9.2 K/uL (1.8-8.0); Basophils % 0.6 % (0-1.3); Eosinophils % 0.5 % (0-4.4); Hematocrit 37.2 % (36.0-45.0); Hemoglobin 13.1 g/dL (12.0-15.0); Lymphocytes % 14.4 % (15.3-44.8); MCH 31.3 pg (27.0-35.0); MCHC 35.1 g/dL (32.0-36.0); MPV 8.1 fL (7.6-11.3); Monocytes % 7.7 % (3.3-12.3); Neutrophils % 76.8 % (41.7-73.7); Nucleated Red Blood Cells % 0.1 % (0-0); Platelets 247 thou/uL (152-406); RBC Red Blood Cell Count 4.18 M/uL (3.86-4.86); Red Cell Distribution Width 13.5 % (12.1-15.2)
[2024-10-03 04:42] LABS: Albumin 2.9 g/dL (3.4-5.0); Albumin/Globulin Ratio 0.9 (1.1-1.8); Anion Gap 9.5 mEq/L (5.0-15.0); Bilirubin Direct 0.2 mg/dL (0-0.2); Bilirubin Indirect, Calculated 0.6 mg/dL (0.2-0.8); Bilirubin Total 0.8 mg/dL (0.2-1.0); Globulin 3.1 g/dL (2.3-3.5); Potassium 3.5 mEq/L (3.5-5.1)
[2024-10-03] MEDS: OXYBUTYNIN ER 5 MG TAB PO SCH (08:09)
[2024-10-03] MEDS: PANTOPRAZOLE 40MG TABLET PO SCH (08:10)
[2024-10-03] MEDS ORDERED: MIRABEGRON 25 MG PO SCH (09:00)
--- NOTE | 2024-10-03 12:19 | EKG ---
Test Date: 2024-10-02 Test Time: 18:00:09 Fabricator Foam Rubber: CATERINA MEASUREMENT RESULTS: Intervals: Rate: 71 ME: 168 QRSD: 94 QT: 382 QTc: 415 [place]: P: 54 ME: 168 QRS: -23 T: 58 INTERPRETIVE STATEMENTS: Normal sinus rhythm Inferior infarct, age undetermined Abnormal ECG Compared to ECG 10/01/2024 10:35:18 No significant changes Electronically Signed On 10-03-24 12:18:47 CDT by Quan Sousa
--- NOTE | 2024-10-03 12:27 | EKG ---
Test Date: 2024-10-01 Test Time: 10:35:18 Wood Cabinetmaker: RUBEN MEASUREMENT RESULTS: Intervals: Rate: 77 MI: 154 QRSD: 86 QT: 376 QTc: 425 [place]: P: 75 MI: 154 QRS: -23 T: 65 INTERPRETIVE STATEMENTS: Normal sinus rhythm Low voltage QRS Possible Inferior infarct, age undetermined Cannot rule out Anterior infarct, age undetermined Abnormal ECG Compared to ECG 02/08/2024 22:07:14 Low QRS voltage now present Myocardial infarct finding now present Electronically Signed On 10-03-24 12:24:36 CDT by Quan Sousa
--- NOTE | 2024-10-03 14:29 | PN ---
Date of Progress Note: 10/03/2024 Diagnosis: Pancreatitis. Subjective: The patient is doing better. There is nausea, less pain. Objective: Chest: Clear. Abdomen: Soft and depressible. No peritonitis. Extremities: Good capillary refill. Laboratory Data: Blood work shows WBC count of 12, lipase is normal to 72, and LFTs are normal too. Plan: We discussed with the patient the MRCP, the ultrasound, the CAT scan. They have unable to pro ve any gallstones in this patient on the MRCP or the ultrasound. The common bile duct seems to be cl ear too from any obstruction. So we should be looking for other causes of also pancreatitis. From t he surgical standpoint, no surgical intervention plan today. MUKESH/KARTHIK Voice ID: [id number] Report ID: [id number]
--- NOTE | 2024-10-03 18:47 | P.PN ---
Subjective Date of Service: 10/03/24 Chief Complaint: Pancreatitis, suspected gallstone pancreatitis Patient complaining of pain in the left upper quadrant of the abdomen. She states that the pain is worse with breathing. Patient tolerated solid diet. No recorded fever. No nausea or vomiting. Physical Examination - Vital Signs Temperature: 97.7 F Blood Pressure: 167/57 Pulse: 74 Respirations: 18 Pulse Ox (%): 97 Assessment And Plan - Plan Physical examination General: Alert and oriented x3, NAD, HEENT: Conjunctiva not pale, anicteric sclera Neck: Supple, no elevated JVD Heart: Heart sounds 1 and 2 normal, regular rhythm, normal rate, no pedal edema Lungs: Clear to auscultation bilaterally, adequate breath sounds bilaterally, no rhonchi or crackles. Abdomen: Soft, nondistended, moderate epigastric tenderness, normal bowel sounds. Extremities: No tenderness, no deformity Skin: Normal skin turgor, no rash, no nodules or ulcers. Neuro: No focal motor deficit. Normal speech. Psychiatry: Normal mood, no agitation. Problem list Pancreatitis Cholelithiasis Paroxysmal atrial fibrillation Hypertension Hyperlipidemia Plan: Acute pancreatitis Lipase level improved to normal MRCP shows no CBD stone or gallstone. It did report unremarkable gallbladder and biliary tree. Dr. Mcmahon is following and recommend no need for cholecystectomy at this time. Patient is complaining of left upper quadrant abdominal pain. Repeat CT abdomen and pelvis results this pending. Continue IV hydration Analgesics as needed Continue empiric IV Zosyn Continue current diet. Paroxysmal atrial fibrillation Hypertension Hyperlipidemia Stable Continue home medications. Continue Eliquis. DVT prophylaxis: Eliquis Advanced directive: Full code
[2024-10-03 19:56] VITALS: O2SAT 94
--- NOTE | 2024-10-03 20:22 | RAD REPORT ---
EXAMINATION: CT Abdomen Pelvis W Contrast CLINICAL INDICATION: Female, 84 years old. Left flank pain, f/o acute pancreatitis TECHNIQUE: CT abdomen and pelvis was performed, after the administration of IV contrast, as per [facility] protocol. Axial, sagittal and coronal reconstructions were obtained. One or more of the following dose reduction techniques were used: Automated exposure control, adjustment of the mA and k V according to patient size, and iterative reconstruction. Unless otherwise specified, incidental findings do not require dedicated imaging follow-up. COMPARISON: 01/24/2014 FINDINGS: LOWER CHEST: Trace bilateral layering effusions. Right lower lobe subsegmental atelectasis.. LIVER: Normal in size and contour. Subcapsular left lobe 1.2 cm cystic lesion. No suspicious focal le didi. BILIARY SYSTEM: Moderate distention. Mild layering sludge. Mild pericystic fat stranding. SPLEEN: Normal size. No focal lesion. PANCREAS: Diffuse inflammatory changes involving the pancreas especially at the tail. No mass, ductal dilation, or an-pancreatic fluid. ADRENALS: Normal; no mass. KIDNEYS: Normal size and contour. No hydronephrosis. URINARY BLADDER: Unremarkable. GASTROINTESTINAL TRACT: No evidence of free air, bowel obstruction or abscess. Trace free fluid in t he pelvis, and tracking along the left more than right paracolic gutter. APPENDIX: Normal appendix. LYMPH NODES: No lymphadenopathy. MUSCULOSKELETAL: No acute or suspicious osseous abnormality. Bilateral hip arthroplasty hardware in p lace results in streak artifact which limits evaluation of the pelvic structures. ADDITIONAL FINDINGS: Bulky appearance of the uterus, with ill-defined posterior wall fibroid. IMPRESSION: Diffuse inflammatory changes involving the pancreas especially at the tail, suggesting acute intersti tial pancreatitis. No peripancreatic fluid collections or other evidence of complications. Trace free fluid along the paracolic gutters and pelvis. Mild pericystic fluid, could be reactive. Mild concomitant acute cholecystitis cannot be entirely exc luded. Other stable findings as above.
[2024-10-03] MEDS: MELATONIN 3 MG TABLET PO PRN (23:19)
--- NOTE | 2024-10-04 09:34 | P.DS ---
Admission Date: 10/01/24 Discharge Date: 10/04/24 Disposition: ROUTINE DISCHARGE Discharge Condition: FAIR Reason for Admission: Pancreatitis, suspected gallstone pancreatitis Brief History of Present Illness: 84yo F, PMH: HTN, paroxysmal Afib, HLD, ?remote CVA presented to the ED after sudden onset of severe epigastric pain rating to her back. In the ED, she was noted to have significant epigastric pain, CT noted inflammation of the pancreatic tail consistent with pancreatitis. No evidence on CT or ultrasound of any biliary pathology. CBD was within normal limits, and LFTs and total bilirubin were within normal limits as well. Lipase was noted to be significantly elevated. History and findings are most consistent with probable gallstone pancreatitis, and she may have passed a small nonobstructing gallstone in her biliary duct. Patient was hospitalized for further management. Hospital Course: Problem list Pancreatitis Cholelithiasis Paroxysmal atrial fibrillation Hypertension Hyperlipidemia Patient admitted to the medical floor and the following medical problems addressed: Plan: Acute pancreatitis Lipase level improved from 4497 to 72 MRCP shows no CBD stone or gallstone. It did report unremarkable gallbladder and and no biliary tree abnormality. General surgery Dr. Mcmahon evaluated patient and recommend no indication for cholecystectomy at this time. Patient had left sided upper quadrant abdominal pain. CT abdomen and pelvis demonstrated pancreatic interstitial inflammation consistent with acute pancreatitis Patient was treated with supportive measures including IV hydration. She was also treated with broad-spectrum antibiotics-IV Zosyn Patient pain overall significantly improved and she tolerated solid diet Soft diet advised for the next few days before advancing to solid as tolerated. Paroxysmal atrial fibrillation Hypertension Hyperlipidemia Stable Continued home medications. Continued Eliquis. Vital Signs/Physical Exam: Temp Pulse Resp BP Pulse Ox 98.2 F 78 14 137/71 94 10/04/24 08:00 10/04/24 08:00 10/04/24 08:00 10/04/24 08:00 10/04/24 08:00 General: Alert, In no apparent distress, Oriented x3 HEENT: Mucous membr. moist/pink Neck: Supple, JVD not distended Respiratory: Clear to auscultation bilaterally, Normal air movement Cardiovascular: No edema, Regular rate/rhythm, Normal S1 S2 Gastrointestinal: Normal bowel sounds, Soft and benign, Non-distended, Tenderness (Epigastric tenderness on deep palpation.) Musculoskeletal: No swelling, No erythema Integumentary: No rashes, No cyanosis Neurological: Normal speech, Normal strength at 5/5 x4 extr Laboratory Data at Discharge: WBC 12.00 thou/uL (4.3-10.9) H 10/03/24 04:04 Hgb 13.1 g/dL (12.0-15.0) 10/03/24 04:04 Hct 37.2 % (36.0-45.0) 10/03/24 04:04 Plt Count 247 thou/uL (152-406) 10/03/24 04:04 PT 12.2 SECONDS (10-13.0) 10/01/24 10:58 INR 1.07 10/01/24 10:58 Sodium 139 mEq/L (136-145) 10/03/24 04:04 Potassium 3.5 mEq/L (3.5-5.1) 10/03/24 04:04 BUN 9 mg/dL (7-18) 10/03/24 04:04 Creatinine 0.52 mg/dL (0.55-1.02) L 10/03/24 04:04 Glucose 110 mg/dL (74-106) H 10/03/24 04:04 Magnesium 2.0 mg/dL (1.6-2.4) 10/01/24 10:58 Total Bilirubin 0.8 mg/dL (0.2-1.0) 10/03/24 04:04 AST 19 U/L (15-37) 10/03/24 04:04 ALT 30 U/L (13-56) 10/03/24 04:04 Alkaline Phosphatase 98 U/L (45-117) 10/03/24 04:04 Cholesterol 154 mg/dL (<200) 10/01/24 13:10 Lipase 72 U/L (13-75) 10/03/24 04:04 Home Medications: Losartan Potassium 50 mg PO DAILY 04/24/21 Metoprolol Succinate 50 mg PO DAILY 04/24/21 Apixaban [Eliquis] 5 mg PO BID #60 tab 06/17/22 Mirabegron [Myrbetriq] 25 mg PO DAILY 02/03/24 Gabapentin 200 mg pe PO TID PRN 10/01/24 Rosuvastatin [Crestor*] 20 mg PO BEDTIME 10/01/24 Amox/Clavulanate [Augmentin 875-125 Tab] 1 each PO BID #10 tab 10/04/24 Oxycodone HCl 5 mg PO Q6H #15 tab 10/04/24 Pantoprazole [Protonix Tab*] 40 mg PO ACB #10 tab 10/04/24 New Medications: Amox/Clavulanate [Augmentin 875-125 Tab] 1 each PO BID #10 tab Oxycodone HCl 5 mg PO Q6H #15 tab Pantoprazole [Protonix Tab*] 40 mg PO ACB #10 tab Physician Discharge Instructions: Soft diet for the next 3 days and then advance as tolerated. Follow up with an Internal Medicine Physician of your choice: MAYRA JOAQUIN MD [address] [facility], [facility] [address] [place] [address] ACCEPTING NEW PATIENTS! SINDHU BATRES MD [address], [place] [address] [place] MENDEZ MD [address] [place] [address] FOZIA GARCIA MD [address] [facility] [place] [address] VENKAT GALVAN MD [address] [place] [address] Follow up with a Family Medicine Physician of your choice: MIGUEL LUCIO MD [address] [facility], [address] [place] [address] ACCEPTING NEW PATIENTS! MAYRA JOAQUIN MD [address] [facility], [address] [place] [address] ACCEPTING NEW PATIENTS! FRAN LY [place] [address] [address] PALAK VELÁSQUEZ MD [address] [facility], [address] [place] [address] KENROY MIKE MD [address] [facility], [address] [place] [address] PORTIA PALACIOS MD [address] [facility], [place] [address] [place] [address] CAYETANO MENDEZ MD [address] [place] [address] ROSEMARIE FAROOQ, [facility] [address] [facility], [address] [place] [address] MARIELLE DRAKE MD [address] [facility], [address] [place] [address] ENOC DRAKE APRN [employer]ARDESS [address] [facility], [address] [place] [address] [facility] DO BOSSMAN [address] [facility], [address] [place] [address] Diet: Soft diet Followup: NONE,NONE [Primary Care Provider] - 1 Week (See list of providers in our area provided below) Time spent managing pt's care (in minutes): 35
[2024-10-04 12:02] LABS: Absolute Basophils 0.1 K/uL (0-0.5); Absolute Eosinophils 0.2 K/uL (0-0.5); Absolute Lymphocytes (CBC) 1.4 K/uL (0.7-4.9); Absolute Monocytes 0.7 K/uL (0.1-1.3); Absolute Neutrophil 6.7 K/uL (1.8-8.0); Basophils % 0.6 % (0-1.3); Eosinophils % 2.7 % (0-4.4); Hematocrit 37.5 % (36.0-45.0); Hemoglobin 13.4 g/dL (12.0-15.0); Lymphocytes % 15.5 % (15.3-44.8); MCH 31.4 pg (27.0-35.0); MCHC 35.6 g/dL (32.0-36.0); MCV 88.2 fL (80-100); MPV 7.9 fL (7.6-11.3); Monocytes % 7.5 % (3.3-12.3); Neutrophils % 73.7 % (41.7-73.7); Platelets 272 thou/uL (152-406); RBC Red Blood Cell Count 4.25 M/uL (3.86-4.86); Red Cell Distribution Width 13.4 % (12.1-15.2)
[2024-10-04 12:11] LABS: Anion Gap 8.1 mEq/L (5.0-15.0); Potassium 4.1 mEq/L (3.5-5.1)
[2024-10-04 16:02] VITALS: BP 156/56; TEMP 98
== END 2024-10-04 16:37 | disposition home or self-care (01) | DRG 440 ==
LOC: ER 10:28 → ERHOLD 15:16 → 4TH 17:51
PROVIDERS: ADMIT Hospitalist; ATTEND Internal Medicine
DX: K85.10 Biliary acute pancreatitis without necrosis or infection (principal); I48.0 Paroxysmal atrial fibrillation; I10 Essential (primary) hypertension; E78.5 Hyperlipidemia, unspecified; K80.20 Calculus of gallbladder without cholecystitis without obstruction; Z88.5 Allergy status to narcotic agent; Z79.01 Long term (current) use of anticoagulants; Z90.49 Acquired absence of other specified parts of digestive tract; Z86.73 Personal history of transient ischemic attack (TIA), and cerebral infarction without residual deficits; Z79.899 Other long term (current) drug therapy; Z96.643 Presence of artificial hip joint, bilateral
CPT/HCPCS: 36415; 71045; 71275; 74150; 74177; 74181; 76705; 80048; 80076; 82465; 82550; 83690; 83735; 83880; 84484; 85025; 85610; 93005; 94760; 96374; 96375; 99285; A4216; J0360; J1171; J2405; J2470; J2543; J2550; Q9967